=== PATIENT | female | born 1970 | race Caucasian/White ===

== ENCOUNTER 2016-08-10 12:09 | Emergency (ER) | payer OTHER ==
[~2016-08-10] VITALS: Ht 147.3 cm; Wt 73.0 kg
[~2016-08-10 12:09] MED LIST: IBUP-1050 PO
[2016-08-10 12:18] VITALS: Ht 147.3 cm; Wt 73.0 kg
[2016-08-10] MEDS ORDERED: ALBUAER INH (12:57)
[2016-08-10] MEDS ORDERED: ONDANSETRON INJ 2 MG/ML 2 ML VIAL IV STA (13:31)
[2016-08-10] MEDS ORDERED: KETOROLAC TROMETHAMINE 30 MG/ML VIAL IV STA (13:31)
[2016-08-10] MEDS ORDERED: SODIUM CHLORIDE 0.9% 1000ML 1,000 ML IV ONE (13:45)
[2016-08-10] MEDS ORDERED: DEXAMETHASONE SOD INJ 10 MG/ML VIAL IV ONE (13:45)
[2016-08-10 14:02] LABS: URINE APPEARANCE CLEAR (CLEAR); URINE BILIRUBIN NEG (NEG); URINE COLOR YELLOW; URINE NITRITE NEG (NEG); URINE PH 8.5 (4.5-7.5); URINE SPECIFIC GRAVITY 1.005 (1.000-1.030); UROBILINOGEN NEG (NEG); ZZUR CULT IF INDIC CLEAN CATCH NO
--- NOTE | 2016-08-10 14:06 | DIAGNOSTIC IMAGING REPORT ---
CT SCAN OF THE BRAIN WITHOUT IV CONTRAST CLINICAL HISTORY: Headache. COMPARISON STUDY: No priors. TECHNIQUE: Unenhanced axial CT scan of the brain is performed from the vertex to the skull base. Automated dose control exposure was utilized. CT DOSE: 537.48 mGy.cm FINDINGS: Brain parenchyma: The brain parenchyma is normal in appearance. There is no hemorrhage, mass effect, or evidence of acute territorial ischemia by CT criteria. Jane-white matter is preserved. No extra-axial fluid collection is seen. Ventricles, sulci, cisterns: Normal in configuration. Intracranial vasculature: The visualized intracranial vasculature at the skull base is normal in appearance. Calvarium: Unremarkable. Soft tissues: A small sebaceous cyst is noted in the occipital scalp. Sinuses and mastoids: The visualized paranasal sinuses are clear. The mastoid air cells are well pneumatized. Orbits: The bony orbits are grossly intact. Findings suggest previous left ocular lens surgery. IMPRESSION: No acute intracranial abnormality. Electronically signed by: Rudi Burrell M.D. 08/10/2016 2:04 PM Dictated Date/Time: 08/10/2016 2:02 PM
[2016-08-10 14:21] LABS: MANUAL MICROSCOPIC REQUIRED? NO; REVIEW REQ? NO
[2016-08-10 14:31] LABS: BASO % 0.6 %; BASO ABS # 0.03 K/uL (0-0.2); COMPLETE YES; EOS % 3.3 %; HEMATOCRIT 40.4 % (37-47); LYMPH % 33.3 %; LYMPH ABS # 1.71 K/uL (1.2-3.4); MEAN CELL VOLUME 95.7 fL (80-100); MEAN CORPUSCULAR HEMOGLOBIN 33.6 pg (25-34); MEAN CORPUSCULAR HGB CONC 35.1 g/dl (32-36); MEAN PLATELET VOLUME 11.2 fL (7.4-10.4); MONO % 4.3 %; NEUT % 58.5 %; PLATELET COUNT 154 K/uL (130-400); RED BLOOD COUNT 4.22 M/uL (4.2-5.4); WHITE BLOOD COUNT 5.13 K/uL (4.8-10.8)
[2016-08-10 14:54] LABS: BUN/CREATININE RATIO 7.8 (10-20); CALCIUM 9.2 mg/dl (8.5-10.1); CREATININE 0.71 mg/dl (0.60-1.20); POTASSIUM 4.1 mmol/L (3.5-5.1)
[2016-08-10 15:04] LABS: THYROID STIMULATING HORMONE 0.196 uIu/ml (0.300-4.500)
[2016-08-10] MEDS ORDERED: ULT/50 PO (15:19)
[2016-08-10 15:54] VITALS: BP 157/96; PULSE 86; TEMP 36.9; O2SAT 95
--- NOTE | 2016-08-10 22:30 | EMERGENCY ROOM VISIT NOTE ---
History First contact with patient: 13:11 Chief Complaint: HEADACHE Stated Complaint: HEADACHE History of Present Illness The patient is a 46 year old female who presents to the Emergency Room with complaints of headache symptoms slowly worsening over the past 4 days. The patient does have a history of fibromyalgia, but does not have a history of migraine headaches. She has not had fever or chills. She states her pain is essentially in the front of her head and up over the top of the head. She is nauseated without vomiting. This is not the worst headache of her life. No recent URI symptoms or fever. She took Tylenol at home without improvement of symptoms. She rates her discomfort an 8/10. Review of Systems More than 10 systems were reviewed and otherwise negative with the exception of history of present illness. Past Medical/Surgical History Medical Problems: (1) Abdominal pain (2) Acute exacerbation of chronic low back pain (3) Asthma, Unspecified (4) Back pain (5) Back pain (6) Back pain (7) Back strain (8) Back strain (9) Chronic Obstructive Pulmonary Disease, Unspecified (10) Fibromyalgia (11) Fibromyalgia (12) Fracture of metatarsal bone (13) Generalized pain (14) Lumbago (15) Lupus anticoagulant disorder (16) Musculoskeletal chest pain (17) Nodule of chest wall (18) Splenomegaly (19) Swelling of both lower extremities (20) Thoracic back pain (21) Upper abdominal pain Family History Hypertension Stroke Social History Smoking Status: Current Every Day Smoker Alcohol Use: occasionally Housing Status: other Occupation Status: employed Current/Historical Medications Scheduled Acetaminophen (Tylenol), 1,000 MG PO Q6 Albuterol Sulfate (Proventil Hfa), 2 PUFF INH DAILY Tramadol Hcl (Ultram), 50 MG PO Q8H Trazodone Hcl (Trazodone), 50 MG PO HS Allergies Coded Allergies: Diphenhydramine (Verified Allergy, Unknown, JITTERY, 08/10/16) Milnacipran (Verified Allergy, Unknown, VOMITS, 08/10/16) Physical Exam Vital Signs Date Time Temp Pulse Resp B/P Pulse Ox O2 Delivery O2 Flow Rate FiO2 08/10/16 15:54 36.9 86 18 157/96 95 08/10/16 14:39 86 18 157/96 08/10/16 12:18 36.9 92 17 156/105 95 Room Air Pain Rating (0-10): 0 Physical Exam VITALS: Vitals are noted on the nurse's note and reviewed by myself. Vital signs stable. GENERAL: Well-developed, well-nourished, white female, who is in no acute distress and resting comfortably. Patient is cooperative with the examination. HEAD: Normocephalic atraumatic. EARS: External ear normal. External auditory canals clear, tympanic membranes pearly jane without erythema or effusion bilaterally. EYES: Pupils equal round and reactive to light and accommodation. Conjunctivae without injection, sclerae without icterus. Extraocular movements intact. NOSE: Patent, turbinates without inflammation or discharge. MOUTH: Mucous membranes moist. Tonsils are not enlarged. Pharynx without erythema, blood, or exudate. Uvula midline. Airway patent. NECK: Supple without nuchal rigidity. No lymphadenopathy. No thyromegaly. Cervical spine is nontender. HEART: Regular rate and rhythm without murmurs gallops or rubs. LUNGS: Clear to auscultation bilaterally without wheezes, rales or rhonchi. No retractions or accessory muscle use. Medical Decision & Procedures ER Provider Diagnostic Interpretation: CT SCAN OF THE BRAIN WITHOUT IV CONTRAST CLINICAL HISTORY: Headache. COMPARISON STUDY: No priors. TECHNIQUE: Unenhanced axial CT scan of the brain is performed from the vertex to the skull base. Automated dose control exposure was utilized. CT DOSE: 537.48 mGy.cm FINDINGS: Brain parenchyma: The brain parenchyma is normal in appearance. There is no hemorrhage, mass effect, or evidence of acute territorial ischemia by CT criteria. Jane-white matter is preserved. No extra-axial fluid collection is seen. Ventricles, sulci, cisterns: Normal in configuration. Intracranial vasculature: The visualized intracranial vasculature at the skull base is normal in appearance. Calvarium: Unremarkable. Soft tissues: A small sebaceous cyst is noted in the occipital scalp. Sinuses and mastoids: The visualized paranasal sinuses are clear. The mastoid air cells are well pneumatized. Orbits: The bony orbits are grossly intact. Findings suggest previous left ocular lens surgery. IMPRESSION: No acute intracranial abnormality. Laboratory Results 08/10/16 14:20 Red Blood Count 4.22, Mean Corpuscular Volume 95.7, Mean Corpuscular Hemoglobin 33.6, Mean Corpuscular Hemoglobin Concent 35.1, Mean Platelet Volume 11.2, Neutrophils (%) (Auto) 58.5, Lymphocytes (%) (Auto) 33.3, Monocytes (%) (Auto) 4.3, Eosinophils (%) (Auto) 3.3, Basophils (%) (Auto) 0.6, Neutrophils # (Auto) 3.00, Lymphocytes # (Auto) 1.71, Monocytes # (Auto) 0.22, Eosinophils # (Auto) 0.17, Basophils # (Auto) 0.03 08/10/16 14:20 Test 08/10/16 13:50 08/10/16 14:20 Urine Color YELLOW Urine Appearance CLEAR (CLEAR) Urine pH 8.5 (4.5-7.5) Urine Specific [place] 1.005 (1.000-1.030) Urine Protein NEG (NEG) Urine Glucose (UA) NEG (NEG) Urine Ketones NEG (NEG) Urine Occult Blood NEG (NEG) Urine Nitrite NEG (NEG) Urine Bilirubin NEG (NEG) Urine Urobilinogen NEG (NEG) Urine Leukocyte Esterase NEG (NEG) White Blood Count 5.13 K/uL (4.8-10.8) Red Blood Count 4.22 M/uL (4.2-5.4) Hemoglobin 14.2 g/dL (12.0-16.0) Hematocrit 40.4 % (37-47) Mean Corpuscular Volume 95.7 fL (80-100) Mean Corpuscular Hemoglobin 33.6 pg (25-34) Mean Corpuscular Hemoglobin Concent 35.1 g/dl (32-36) Platelet Count 154 K/uL (130-400) Mean Platelet Volume 11.2 fL (7.4-10.4) Neutrophils (%) (Auto) 58.5 % Lymphocytes (%) (Auto) 33.3 % Monocytes (%) (Auto) 4.3 % Eosinophils (%) (Auto) 3.3 % Basophils (%) (Auto) 0.6 % Neutrophils # (Auto) 3.00 K/uL (1.4-6.5) Lymphocytes # (Auto) 1.71 K/uL (1.2-3.4) Monocytes # (Auto) 0.22 K/uL (0.11-0.59) Eosinophils # (Auto) 0.17 K/uL (0-0.5) Basophils # (Auto) 0.03 K/uL (0-0.2) RDW Standard Deviation 45.0 fL (36.4-46.3) RDW Coefficient of Variation 13.0 % (11.5-14.5) Immature Granulocyte % (Auto) 0.0 % Immature Granulocyte # (Auto) 0.00 K/uL (0.00-0.02) Anion Gap 8.0 mmol/L (3-11) Est Creatinine Clear Calc Drug Dose 83.1 ml/min Estimated GFR () 117.6 Estimated GFR (Non- 101.4 BUN/Creatinine Ratio 7.8 (10-20) Calcium Level 9.2 mg/dl (8.5-10.1) Total Bilirubin 0.2 mg/dl (0.2-1) Aspartate Amino Transf (AST/SGOT) 10 U/L (15-37) Alanine Aminotransferase (ALT/SGPT) 27 U/L (12-78) Alkaline Phosphatase 81 U/L (45-117) Total Protein 7.2 gm/dl (6.4-8.2) Albumin 3.6 gm/dl (3.4-5.0) Globulin 3.6 gm/dl (2.5-4.0) Albumin/Globulin Ratio 1.0 (0.9-2) Thyroid Stimulating Hormone (TSH) 0.196 uIu/ml (0.300-4.500) Medications Administered Medications (Trade) Dose Ordered Sig/Lindsay Route Start Time Stop Time Status Last Admin Dose Admin Sodium Chloride (Nss 1000ml) 1,000 ml @ 999 mls/hr Q1H1M ONCE IV 08/10/16 13:45 08/10/16 14:45 DC 08/10/16 14:27 999 MLS/HR Ondansetron HCl (Zofran Inj) 4 mg NOW STAT IV 08/10/16 13:31 08/10/16 13:32 DC 08/10/16 14:28 4 MG Ketorolac Tromethamine (Toradol Inj) 30 mg NOW STAT IV 08/10/16 13:31 08/10/16 13:32 DC 08/10/16 14:27 30 MG Dexamethasone Sodium Phosphate (Decadron Inj) 10 mg NOW ONCE IV 08/10/16 13:45 08/10/16 13:46 DC 08/10/16 14:27 10 MG ED Course Physical exam and history were performed. Nursing notes and EMR were reviewed. Patient appears to have headache symptoms slowly worsening over the past 4 days. She certainly does not appear with signs of meningitis or encephalitis. Despite having intermittent headaches throughout her lifetime, the patient has not had previous imaging. IV access was established and labs were obtained. The patient was hydrated with normal saline and given IV Toradol, IV Decadron, and IV Zofran. I did elect to perform a CT scan of her head, and this was ordered. The patient was reevaluated multiple times throughout the course of her stay. She had essentially complete resolution of her symptoms after the above medication. Her blood work does not show a significantly elevated white blood cell count, anemia, bandemia, or gross electrolyte imbalance. TSH is within expected limits. The CT scan does not show signs of acute bleed or other findings to explain the patient's symptoms. Overall the patient appears stable for discharge home. She should follow with her primary care physician for further management. I will provide her a short course of tramadol to assist with breakthrough symptoms at home. She was otherwise invited back to the ER anytime with new, worsening, or concerning symptoms. She was discharged home under the care of family member who is acting as the haul truck driver. The chart was completed utilizing [employer] Speech Voice Recognition Software. Grammatical errors, random word insertions, pronoun errors, and incomplete sentences are an occasional consequence of this system due to software limitations, ambient noise, and hardware issues. Any formal questions or concerns about the content, text, or information contained within the body of this dictation should be directly addressed to the provider for clarification. . Medical Decision The differential diagnosis includes, but is not limited to: acute intracranial bleed, meningitis, encephalitis, mass or mass effect, sinusitis, infection, tumor, headache, temporal arteritis and carbon monoxide exposure, and migraine. BILL Drug Monitoring Program Search Results: patient reviewed within database, no issues identified Impression Primary Impression: Headache Departure Information Dispostion Home / Self-Care Condition GOOD Prescriptions Tramadol Hcl (ULTRAM) 50 Mg Tab 50 MG PO Q8H for 3 Days, #9 TAB Prov: Arnie Murray PA-C 08/10/16 Referrals No Doctor, Assigned (PCP) Forms HOME CARE DOCUMENTATION FORM, IMPORTANT VISIT INFORMATION Patient Instructions My [facility] Additional Instructions You were seen and evaluated today on an emergency basis only. This is not a substitute for, or an effort to provide, complete comprehensive medical care. It is not possible to recognize and treat all injuries or illnesses in a single emergency department visit. For this reason it is recommended that you followup with your primary care physician tomorrow for ongoing care and evaluation. DO NOT drive, drink alcohol, operate machinery, or perform dangerous activities today. You were given medications in the ER that can affect your ability to safely function or operate a vehicle. Rest today in a quiet, peaceful, dark environment and get a full 8-10 hrs of sleep tonight. Avoid loud noises, smoke/smoking, alcohol, bright lights, stress, or physical exertion today to minimize the chance the headache may return. Continue current medications. Ibuprofen(Motrin, Advil) may be used for fever or pain. Use 600mg every six hours as needed. Take with food. Avoid using more than 2400mg in a 24 hour period. Do not use 2400mg per day for more than three consecutive days without physician direction. Prolonged inappropriate use can lead to stomach upset or ulcers. (AND/OR) Acetaminophen(Tylenol) may be used for fever or pain. Use 1000mg every six hours as needed. Avoid using more than 4000mg in a 24 hour period. Take tramadol 50 mg every 8 hours as needed for breakthrough pain. Do not drink or drive while taking this medication. Return to the ER for passing out, worsening headache, vision problems, neck stiffness/pain, fevers, vomiting, worsening of your condition, or as needed.
[2016-12-27] MEDS ORDERED: CYCL10TA6 PO (09:29)
[2016-12-27] MEDS ORDERED: ACET-1256 PO (12:56)
[2016-12-27] MEDS ORDERED: HYDR200T5 PO (17:34)
[2016-12-27] MEDS ORDERED: IBUP-1050 PO (20:18)
== END 2016-08-10 15:56 | disposition home or self-care (01) ==
LOC: C.EDB 12:10 → C.EDC 15:56
DX: R51 Headache (principal); J44.9 Chronic obstructive pulmonary disease, unspecified; J45.909 Unspecified asthma, uncomplicated; M79.7 Fibromyalgia; D68.62 Lupus anticoagulant syndrome; F17.200 Nicotine dependence, unspecified, uncomplicated; Z87.81 Personal history of (healed) traumatic fracture; Z88.8 Allergy status to other drugs, medicaments and biological substances; Z82.49 Family history of ischemic heart disease and other diseases of the circulatory system; Z82.3 Family history of stroke

== ENCOUNTER 2016-08-24 16:49 | Emergency (ER) | payer OTHER ==
[~2016-08-24] VITALS: Ht 147.3 cm; Wt 73.3 kg
[~2016-08-24 16:49] MED LIST changes: +ALBUAER INH; -IBUP-1050 PO
[2016-08-24 16:59] VITALS: TEMP 36.8; Ht 147.3 cm; Wt 73.3 kg
[2016-08-24] MEDS ORDERED: SODIUM CHLORIDE 0.9% 1000ML 1,000 ML IV STA (17:22)
[2016-08-24] MEDS ORDERED: ONDANSETRON INJ 2 MG/ML 2 ML VIAL IV STA (17:22)
[2016-08-24] MEDS ORDERED: ACETAMINOPHEN 500 MG TAB PO STA (17:22)
--- NOTE | 2016-08-24 17:25 | EMERGENCY ROOM VISIT NOTE ---
History Report prepared by Angel: Carlos Killian Under the Supervision of: Dr. Nestor Oneil M.D. First contact with patient: 17:11 Chief Complaint: BACK PAIN Stated Complaint: UPPER BACK PAIN; UPPER LEFT ABDOMINAL PAIN History of Present Illness The patient is a 46 year old female who presents to the Emergency Room with complaints of persistent back pain that started earlier this afternoon. She associates the pain with nausea. She also notes abdominal pain, but she says that this is chronic. The patient has chronic stomach problems, and she has a history of a hernia repair. She states that she has no history of heart problems. The patient says her blood pressure is chronically high. Source of History: patient Onset: Earlier this afternoon Position: back Timing: other (persistent) Associated Symptoms: + nausea Note: Associated symptoms: No other associated symptoms noted. She does note chronic abdominal pain. Review of Systems See HPI for pertinent positives & negatives. A total of 10 systems reviewed and were otherwise negative. Past Medical & Surgical Medical Problems: (1) Abdominal pain (2) Acute exacerbation of chronic low back pain (3) Asthma, Unspecified (4) Back pain (5) Back pain (6) Back pain (7) Back strain (8) Back strain (9) Chronic Obstructive Pulmonary Disease, Unspecified (10) Fibromyalgia (11) Fibromyalgia (12) Fracture of metatarsal bone (13) Generalized pain (14) Lumbago (15) Lupus anticoagulant disorder (16) Musculoskeletal chest pain (17) Nodule of chest wall (18) Splenomegaly (19) Swelling of both lower extremities (20) Thoracic back pain (21) Upper abdominal pain Family History Hypertension Stroke Social History Smoking Status: Current Every Day Smoker Alcohol Use: occasionally Housing Status: other Occupation Status: employed Current/Historical Medications Scheduled Acetaminophen (Tylenol), 1,000 MG PO Q6 Albuterol Sulfate (Proventil Hfa), 2 PUFF INH DAILY Doxycycline Monohydrate (Monodox), 100 MG PO BID Hydroxychloroquine Sulfate (Plaquenil), 200 MG PO DAILY Trazodone Hcl (Trazodone), 100 MG PO HS Allergies Coded Allergies: Diphenhydramine (Verified Allergy, Unknown, JITTERY, 08/24/16) Milnacipran (Verified Allergy, Unknown, VOMITS, 08/24/16) Physical Exam Vital Signs Date Time Temp Pulse Resp B/P Pulse Ox O2 Delivery O2 Flow Rate FiO2 08/24/16 19:41 84 20 123/84 96 Room Air 08/24/16 19:11 87 20 154/93 96 Room Air 08/24/16 18:03 79 18 153/118 94 Room Air 08/24/16 18:02 85 08/24/16 16:59 36.8 76 18 173/102 96 Room Air Physical Exam CONSTITUTIONAL: Mild painful distress. HEENT: No icterus, moist mucous membranes NECK: No meningismus, trachea is midline. CARDIOVASCULAR: Regular rate, normal perfusion RESPIRATORY: Unlabored breathing. Clear to auscultation. GASTROINTESTINAL: Mild epigastric tenderness. GENITOURINARY: No flank tenderness MUSCULOSKELETAL: Full range of motion NEUROLOGIC: No acute gross focal deficits. PSYCHIATRIC: Normal affect SKIN: Normal for ethnicity. Medical Decision & Procedures ER Provider Diagnostic Interpretation: X-ray results as stated below per my interpretation and radiologist interpretation. Other radiology results as stated below per my review and radiologist interpretation. BILIARY ULTRASOUND CLINICAL HISTORY: epigastric pain COMPARISON STUDY: 05/05/2016 FINDINGS: The pancreas is nonvisualized. The liver is of increased echogenicity consistent with hepatic steatosis. There is mild hepatomegaly (21 cm). There is an area of presumed focal fatty sparing adjacent to gallbladder measuring 22 mm in diameter. The gallbladder appears sonographically normal. No stones are identified. There is no gallbladder wall thickening. There is no ductal dilatation. The common mild duct measures 4 mm. There is no right-sided hydronephrosis. IMPRESSION: 1. Increased hepatic echogenicity, consistent with hepatic steatosis. Presumed areas of focal fatty sparing adjacent to gallbladder 2. Ultrasonographically normal gallbladder. No evidence of ductal dilatation 3. Nonvisualization of the pancreas Electronically signed by: Cluadio Quijano M.D. 08/24/2016 6:47 PM Dictated Date/Time: 08/24/2016 6:45 PM CHEST ONE VIEW PORTABLE CLINICAL HISTORY: Chest pain radiating to the back. COMPARISON STUDY: 05/05/2016 FINDINGS: The cardiac and mediastinal contours are normal. There is no evidence of focal pulmonary consolidation. There is no evidence of failure. No pleural effusions are visualized.[ IMPRESSION: No active disease in the chest. Electronically signed by: Claudio Quijano M.D. 08/24/2016 5:52 PM Dictated Date/Time: 08/24/2016 5:[address] OF THE CHEST WITH IV CONTRAST CLINICAL HISTORY: Chest pain rating to the back. COMPARISON STUDY: 05/05/2016 TECHNIQUE: Following the IV administration of 93 mL of Optiray-320, CT of the thorax was performed from the thoracic inlet to the lung bases. Images are reviewed in the axial, sagittal, and coronal planes. IV contrast was administered without complication. CT DOSE: 293.61 mGy.cm FINDINGS: Thyroid: There is a multinodular thyroid gland with the largest nodule measuring 15 mm. Thoracic aorta: The thoracic aorta is normal in course and caliber, noting standard 3-vessel arch anatomy. No aneurysm or dissection is seen. Pulmonary vasculature: The pulmonary trunk is normal in caliber. There are no central filling defects identified to suggest pulmonary embolus. Note that this examination was not protocoled for the evaluation of pulmonary emboli. HEART: The heart is normal in size and configuration, without pericardial effusion. Lungs and pleural spaces: There are no pleural effusions. There is no focal pulmonary consolidation. There is a stable 4 mm right lower lobe pulmonary nodule. There is a stable 2 mm right upper lobe pulmonary nodule. There is a stable 3 mm subpleural left lower lobe pulmonary nodule. Mediastinum: There are enlarged right paratracheal lymph nodes, unchanged from the preceding study. Danika: There is no evidence of pathologic hilar adenopathy Axilla: There is no evidence of pathologic axillary lymphadenopathy Upper abdomen: There is hepatic steatosis Skeletal structures: There are no lytic or blastic osseous lesions. IMPRESSION: 1. No evidence of focal pulmonary consolidation 2. No evidence of thoracic aortic aneurysm or dissection 3. Stable 4 mm right lower lobe pulmonary nodule 4. Stable posterior mediastinal mildly enlarged para-aortic lymph nodes 5. Multinodular thyroid gland Electronically signed by: Claudio Quijano M.D. 08/24/2016 7:18 PM Dictated Date/Time: 08/24/2016 7:10 PM Laboratory Results 08/24/16 18:08 Red Blood Count 4.43, Mean Corpuscular Volume 96.6, Mean Corpuscular Hemoglobin 33.4, Mean Corpuscular Hemoglobin Concent 34.6, Mean Platelet Volume 11.5, Neutrophils (%) (Auto) 58.6, Lymphocytes (%) (Auto) 33.5, Monocytes (%) (Auto) 4.7, Eosinophils (%) (Auto) 2.6, Basophils (%) (Auto) 0.3, Neutrophils # (Auto) 4.54, Lymphocytes # (Auto) 2.59, Monocytes # (Auto) 0.36, Eosinophils # (Auto) 0.20, Basophils # (Auto) 0.02 08/24/16 18:08 Test 08/24/16 18:00 08/24/16 18:08 Urine Color YELLOW Urine Appearance CLEAR (CLEAR) Urine pH 5.0 (4.5-7.5) Urine Specific [place] 1.004 (1.000-1.030) Urine Protein NEG (NEG) Urine Glucose (UA) NEG (NEG) Urine Ketones NEG (NEG) Urine Occult Blood NEG (NEG) Urine Nitrite NEG (NEG) Urine Bilirubin NEG (NEG) Urine Urobilinogen NEG (NEG) Urine Leukocyte Esterase NEG (NEG) White Blood Count 7.73 K/uL (4.8-10.8) Red Blood Count 4.43 M/uL (4.2-5.4) Hemoglobin 14.8 g/dL (12.0-16.0) Hematocrit 42.8 % (37-47) Mean Corpuscular Volume 96.6 fL (80-100) Mean Corpuscular Hemoglobin 33.4 pg (25-34) Mean Corpuscular Hemoglobin Concent 34.6 g/dl (32-36) Platelet Count 146 K/uL (130-400) Mean Platelet Volume 11.5 fL (7.4-10.4) Neutrophils (%) (Auto) 58.6 % Lymphocytes (%) (Auto) 33.5 % Monocytes (%) (Auto) 4.7 % Eosinophils (%) (Auto) 2.6 % Basophils (%) (Auto) 0.3 % Neutrophils # (Auto) 4.54 K/uL (1.4-6.5) Lymphocytes # (Auto) 2.59 K/uL (1.2-3.4) Monocytes # (Auto) 0.36 K/uL (0.11-0.59) Eosinophils # (Auto) 0.20 K/uL (0-0.5) Basophils # (Auto) 0.02 K/uL (0-0.2) RDW Standard Deviation 45.5 fL (36.4-46.3) RDW Coefficient of Variation 13.1 % (11.5-14.5) Immature Granulocyte % (Auto) 0.3 % Immature Granulocyte # (Auto) 0.02 K/uL (0.00-0.02) Anion Gap 9.0 mmol/L (3-11) Est Creatinine Clear Calc Drug Dose 67.2 ml/min Estimated GFR () 90.7 Estimated GFR (Non- 78.2 BUN/Creatinine Ratio 15.9 (10-20) Calcium Level 9.8 mg/dl (8.5-10.1) Total Bilirubin 0.2 mg/dl (0.2-1) Direct Bilirubin < 0.1 mg/dl (0-0.2) Aspartate Amino Transf (AST/SGOT) 10 U/L (15-37) Alanine Aminotransferase (ALT/SGPT) 24 U/L (12-78) Alkaline Phosphatase 74 U/L (45-117) Troponin I < 0.015 ng/ml (0-0.045) Total Protein 7.0 gm/dl (6.4-8.2) Albumin 3.5 gm/dl (3.4-5.0) Globulin 3.5 gm/dl (2.5-4.0) Albumin/Globulin Ratio 1.0 (0.9-2) Lipase 303 U/L (73-393) Labs reviewed by ED physician. Medications Administered Medications (Trade) Dose Ordered Sig/Lindsay Route Start Time Stop Time Status Last Admin Dose Admin Sodium Chloride (Nss 1000ml) 1,000 ml @ 0 mls/hr Q0M STAT IV 08/24/16 17:22 08/24/16 17:26 DC 08/24/16 18:03 0 MLS/HR Morphine Sulfate (MoRPHine SULFATE INJ) 4 mg ONE PRN IV 08/24/16 17:30 09/07/16 17:29 08/24/16 19:18 4 MG Ondansetron HCl (Zofran Inj) 4 mg NOW STAT IV 08/24/16 17:22 08/24/16 17:26 DC 08/24/16 18:00 4 MG ECG Indication: other (back pain) Rate (beats per minute): 80 Rhythm: normal sinus Findings: other (normal axis, nonspecific-ST findings) ED Course 171: Past medical records reviewed. The patient was evaluated in room B11B. A complete history and physical examination was performed. 1722: Ordered Zofran Inj 4 mg IV, NSS 1000 ml @ 0 mls/hr Wide Open IV, Tylenol Tab 1000 mg PO. 0: Ordered Morphine Sulfate Inj 4 mg IV PRN. 0: I reevaluated the patient and she is resting comfortably. The patient verbally expressed understanding and agreement of the treatment plan. The patient will be discharged. Medical Decision Differential diagnoses include: pancreatitis, gall stones, acute coronary syndrome, dissection, GERD. 46-year-old presents to the emergency Department 1 day of constant mild to moderate pain located in between her chest and back. There is no clear ameliorating or exacerbating factors no associated symptoms as nausea, diaphoresis or shortness of breath. She may have some epigastric discomfort on exam. Thorough emergency department evaluation including CAT scan, EKG, right upper quadrant ultrasound and labs were all unremarkable. Patient appeared in no acute distress prior to discharge 7:45 PM. She does take Tylenol and Motrin every 6 hours as needed for pain and follow-up with her doctor to return for any worsening or worrisome symptoms Impression Primary Impression: Back pain Scribe Attestation The scribe's documentation has been prepared under my direction and personally reviewed by me in its entirety. I confirm that the note above accurately reflects all work, treatment, procedures, and medical decision making performed by me. Departure Information Dispostion Home / Self-Care Referrals No Doctor, Assigned (PCP) Alva Burns D.O. Forms HOME CARE DOCUMENTATION FORM, IMPORTANT VISIT INFORMATION Patient Instructions Back Pain - [facility], Chest Pain - [facility], My [facility]
[2016-08-24] MEDS ORDERED: OPTIRAY 320 IV PRN (17:30)
[2016-08-24] MEDS ORDERED: DOXY100C76 PO (17:34)
--- NOTE | 2016-08-24 17:54 | DIAGNOSTIC IMAGING REPORT ---
CHEST ONE VIEW PORTABLE CLINICAL HISTORY: Chest pain radiating to the back. COMPARISON STUDY: 05/05/2016 FINDINGS: The cardiac and mediastinal contours are normal. There is no evidence of focal pulmonary consolidation. There is no evidence of failure. No pleural effusions are visualized.[ IMPRESSION: No active disease in the chest. Electronically signed by: Claudio Quijano M.D. 08/24/2016 5:52 PM Dictated Date/Time: 08/24/2016 5:52 PM
[2016-08-24] MEDS: MoRPHine SULFATE 4 MG/ML 1 ML CARP\\VIAL IV PRN ×2 (18:00→19:18)
[2016-08-24 18:18] LABS: BASO % 0.3 %; BASO ABS # 0.02 K/uL (0-0.2); COMPLETE YES; EOS % 2.6 %; HEMATOCRIT 42.8 % (37-47); IG% 0.3 %; LYMPH % 33.5 %; LYMPH ABS # 2.59 K/uL (1.2-3.4); MEAN CELL VOLUME 96.6 fL (80-100); MEAN CORPUSCULAR HEMOGLOBIN 33.4 pg (25-34); MEAN CORPUSCULAR HGB CONC 34.6 g/dl (32-36); MEAN PLATELET VOLUME 11.5 fL (7.4-10.4); MONO % 4.7 %; NEUT % 58.6 %; PLATELET COUNT 146 K/uL (130-400); RED BLOOD COUNT 4.43 M/uL (4.2-5.4); WHITE BLOOD COUNT 7.73 K/uL (4.8-10.8)
[2016-08-24 18:20] LABS: URINE APPEARANCE CLEAR (CLEAR); URINE BILIRUBIN NEG (NEG); URINE COLOR YELLOW; URINE NITRITE NEG (NEG); URINE SPECIFIC GRAVITY 1.004 (1.000-1.030); UROBILINOGEN NEG (NEG); ZZUR CULT IF INDIC CLEAN CATCH NO
[2016-08-24 18:29] LABS: MANUAL MICROSCOPIC REQUIRED? NO; REVIEW REQ? NO
[2016-08-24 18:39] LABS: ALT/SGPT 24 U/L (12-78); BLOOD UREA NITROGEN 14 mg/dl (7-18); BUN/CREATININE RATIO 15.9 (10-20); CALCIUM 9.8 mg/dl (8.5-10.1); CARBON DIOXIDE 28 mmol/L (21-32); CHLORIDE 104 mmol/L (98-107); CREATININE 0.88 mg/dl (0.60-1.20); GLUCOSE 89 mg/dl (70-99); POTASSIUM 3.9 mmol/L (3.5-5.1); SODIUM 141 mmol/L (136-145)
[2016-08-24 18:44] LABS: ALKALINE PHOSPHATASE 74 U/L (45-117); AST/SGOT 10 U/L (15-37)
--- NOTE | 2016-08-24 18:48 | DIAGNOSTIC IMAGING REPORT ---
BILIARY ULTRASOUND CLINICAL HISTORY: epigastric pain COMPARISON STUDY: 05/05/2016 FINDINGS: The pancreas is nonvisualized. The liver is of increased echogenicity consistent with hepatic steatosis. There is mild hepatomegaly (21 cm). There is an area of presumed focal fatty sparing adjacent to gallbladder measuring 22 mm in diameter. The gallbladder appears sonographically normal. No stones are identified. There is no gallbladder wall thickening. There is no ductal dilatation. The common mild duct measures 4 mm. There is no right-sided hydronephrosis. IMPRESSION: 1. Increased hepatic echogenicity, consistent with hepatic steatosis. Presumed areas of focal fatty sparing adjacent to gallbladder 2. Ultrasonographically normal gallbladder. No evidence of ductal dilatation 3. Nonvisualization of the pancreas Electronically signed by: Claudio Quijano M.D. 08/24/2016 6:47 PM Dictated Date/Time: 08/24/2016 6:45 PM
--- NOTE | 2016-08-24 19:19 | DIAGNOSTIC IMAGING REPORT ---
CT OF THE CHEST WITH IV CONTRAST CLINICAL HISTORY: Chest pain rating to the back. COMPARISON STUDY: 05/05/2016 TECHNIQUE: Following the IV administration of 93 mL of Optiray-320, CT of the thorax was performed from the thoracic inlet to the lung bases. Images are reviewed in the axial, sagittal, and coronal planes. IV contrast was administered without complication. CT DOSE: 293.61 mGy.cm FINDINGS: Thyroid: There is a multinodular thyroid gland with the largest nodule measuring 15 mm. Thoracic aorta: The thoracic aorta is normal in course and caliber, noting standard 3-vessel arch anatomy. No aneurysm or dissection is seen. Pulmonary vasculature: The pulmonary trunk is normal in caliber. There are no central filling defects identified to suggest pulmonary embolus. Note that this examination was not protocoled for the evaluation of pulmonary emboli. HEART: The heart is normal in size and configuration, without pericardial effusion. Lungs and pleural spaces: There are no pleural effusions. There is no focal pulmonary consolidation. There is a stable 4 mm right lower lobe pulmonary nodule. There is a stable 2 mm right upper lobe pulmonary nodule. There is a stable 3 mm subpleural left lower lobe pulmonary nodule. Mediastinum: There are enlarged right paratracheal lymph nodes, unchanged from the preceding study. Danika: There is no evidence of pathologic hilar adenopathy Axilla: There is no evidence of pathologic axillary lymphadenopathy Upper abdomen: There is hepatic steatosis Skeletal structures: There are no lytic or blastic osseous lesions. IMPRESSION: 1. No evidence of focal pulmonary consolidation 2. No evidence of thoracic aortic aneurysm or dissection 3. Stable 4 mm right lower lobe pulmonary nodule 4. Stable posterior mediastinal mildly enlarged para-aortic lymph nodes 5. Multinodular thyroid gland Electronically signed by: Claudio Quijano M.D. 08/24/2016 7:18 PM Dictated Date/Time: 08/24/2016 7:10 PM
[2016-08-24 19:41] VITALS: BP 123/84; PULSE 84; O2SAT 96
[2016-12-27] MEDS ORDERED: CYCL10TA6 PO (09:29)
[2016-12-27] MEDS ORDERED: ACET-1256 PO (12:56)
[2016-12-27] MEDS ORDERED: HYDR200T5 PO (17:34)
[2016-12-27] MEDS ORDERED: IBUP-1050 PO (20:18)
== END 2016-08-24 19:47 | disposition home or self-care (01) ==
LOC: C.EDB 16:51
DX: M54.9 Dorsalgia, unspecified (principal); J44.9 Chronic obstructive pulmonary disease, unspecified; J45.909 Unspecified asthma, uncomplicated; M79.7 Fibromyalgia; D68.62 Lupus anticoagulant syndrome; F17.200 Nicotine dependence, unspecified, uncomplicated; Z82.49 Family history of ischemic heart disease and other diseases of the circulatory system; Z82.3 Family history of stroke

== ENCOUNTER 2016-10-14 09:01 | Emergency (ER) | payer OTHER ==
[~2016-10-14] VITALS: Ht 147.3 cm; Wt 73.3 kg
[~2016-10-14 09:01] MED LIST changes: +DOXY100C76 PO
[2016-10-14 09:05] VITALS: TEMP 36.9; Ht 147.3 cm; Wt 73.3 kg
[2016-10-14] MEDS ORDERED: ALBINSX INH (09:29)
[2016-10-14] MEDS ORDERED: SODIUM CHLORIDE 0.9% 1000ML 1,000 ML IV STA (09:38)
[2016-10-14] MEDS ORDERED: PRED-301 PO (09:40)
[2016-10-14 10:06] LABS: COMPLETE YES; HEMATOCRIT 40.5 % (37-47); IG% 0.5 %; MEAN CORPUSCULAR HGB CONC 34.1 g/dl (32-36); MEAN PLATELET VOLUME 11.1 fL (7.4-10.4); MONO % 3.9 %; NEUT % 83.6 %; PLATELET COUNT 167 K/uL (130-400); RED BLOOD COUNT 4.31 M/uL (4.2-5.4); WHITE BLOOD COUNT 10.81 K/uL (4.8-10.8)
[2016-10-14 10:11] LABS: URINE APPEARANCE CLEAR (CLEAR); URINE BILIRUBIN NEG (NEG); URINE COLOR YELLOW; URINE NITRITE NEG (NEG); URINE SPECIFIC GRAVITY 1.005 (1.000-1.030); UROBILINOGEN NEG (NEG); ZZUR CULT IF INDIC CLEAN CATCH NO
[2016-10-14 10:13] LABS: MANUAL MICROSCOPIC REQUIRED? NO; REVIEW REQ? NO
[2016-10-14 10:24] LABS: ALT/SGPT 28 U/L (12-78); BLOOD UREA NITROGEN 17 mg/dl (7-18); BUN/CREATININE RATIO 19.6 (10-20); CALCIUM 9.6 mg/dl (8.5-10.1); CARBON DIOXIDE 27 mmol/L (21-32); CHLORIDE 105 mmol/L (98-107); CREATININE 0.85 mg/dl (0.60-1.20); GLUCOSE 109 mg/dl (70-99); POTASSIUM 4.3 mmol/L (3.5-5.1); SODIUM 141 mmol/L (136-145)
--- NOTE | 2016-10-14 10:27 | DIAGNOSTIC IMAGING REPORT ---
CHEST 1 VW FRONT-NOT PORTABLE CLINICAL HISTORY: epigastric pain dyspnea COMPARISON STUDY: 08/24/2016 FINDINGS: The bones soft tissues and hemidiaphragms are normal. The cardiomediastinal silhouette is normal. The lungs are clear. The pulmonary vasculature is normal. IMPRESSION: Negative chest. Electronically signed by: David Lowe M.D. 10/14/2016 10:25 AM Dictated Date/Time: 10/14/2016 10:25 AM
[2016-10-14 10:28] LABS: ALKALINE PHOSPHATASE 68 U/L (45-117); AST/SGOT 7 U/L (15-37)
--- NOTE | 2016-10-14 10:29 | DIAGNOSTIC IMAGING REPORT ---
Right upper quadrant ultrasound GALLBLADDER-ABD LIMITED CLINICAL HISTORY: rug pain nausea TECHNIQUE: Ultrasound COMPARISON STUDY: 08/24/2016 FINDINGS: Fatty infiltration of the liver and normal gallbladder. Common bile duct 3 mm. Poor visibility of the pancreas due to overlying bowel content. Right kidney is negative for hydronephrosis. IMPRESSION: Fatty infiltration of liver. Otherwise negative study. No change from the prior exam. Electronically signed by: David Lowe M.D. 10/14/2016 10:27 AM Dictated Date/Time: 10/14/2016 10:26 AM
[2016-10-14] MEDS ORDERED: OXYC1TAB3 PO (10:55)
--- NOTE | 2016-10-14 10:56 | EMERGENCY ROOM VISIT NOTE ---
History First contact with patient: 09:27 Chief Complaint: BACK PAIN Stated Complaint: FIBRO FLARE-UP/PAIN IN LOWER BACK, LEGS, HANDS History of Present Illness The patient is a 46 year old female who presents to the Emergency Room with complaints of fibromyalgia exacerbation. The patient states her symptoms started 5 days ago. She reports a headache, feeling flushed, diffuse pain. She states she has also vomited. She states that she noticed epigastric pain when she was laying flat at night, felt acid go into her throat and she threw up. She denies any true chest pain or trouble breathing. She rates her discomfort an 8/10. She denies any fevers, chills, earache, sore throat or cough. She denies any numbness, tingling or weakness. The patient states this feels very typical of her fibromyalgia exacerbation. She had an extensive evaluation last month. The patient drove herself to the emergency department. Review of Systems A 10 system review of systems was completed with positives and pertinent negatives listed in the HPI. Past Medical/Surgical History Medical Problems: (1) Abdominal pain (2) Acute exacerbation of chronic low back pain (3) Asthma, Unspecified (4) Back pain (5) Back pain (6) Back pain (7) Back strain (8) Back strain (9) Chronic Obstructive Pulmonary Disease, Unspecified (10) Fibromyalgia (11) Fibromyalgia (12) Fracture of metatarsal bone (13) Generalized pain (14) Lumbago (15) Lupus anticoagulant disorder (16) Musculoskeletal chest pain (17) Nodule of chest wall (18) Splenomegaly (19) Swelling of both lower extremities (20) Thoracic back pain (21) Upper abdominal pain Family History Hypertension Stroke Social History Smoking Status: Current Every Day Smoker Alcohol Use: occasionally Housing Status: other Occupation Status: employed Current/Historical Medications Scheduled Acetaminophen (Tylenol), 1,000 MG PO Q6 Albuterol Sulfate (Proventil Hfa), 2 PUFF INH DAILY Hydroxychloroquine Sulfate (Plaquenil), 200 MG PO DAILY Prednisone (Prednisone), 5 MG PO UD Trazodone Hcl (Trazodone), 100 MG PO HS Scheduled PRN Albuterol Sulf (Albuterol Sulfate), 2.5 MG INH Q6H PRN for Shortness of Breath Cyclobenzaprine Hcl (Flexeril), 10 MG PO Q6-8H PRN for Muscle Spasms Oxycodone Ir (Roxicodone Ir), 1 TAB PO Q6 PRN for Pain Allergies Coded Allergies: Diphenhydramine (Verified Allergy, Unknown, JITTERY, 10/14/16) Milnacipran (Verified Allergy, Unknown, VOMITS, 10/14/16) Physical Exam Vital Signs Date Time Temp Pulse Resp B/P Pulse Ox O2 Delivery O2 Flow Rate FiO2 10/14/16 11:13 82 14 148/92 97 10/14/16 09:05 36.9 95 18 142/90 96 Room Air Physical Exam VITALS: Vitals are noted on the nurse's note and reviewed by myself. Vital signs stable. The patient is afebrile. GENERAL: This is a 46-year-old female, in no acute distress, nondiaphoretic, well-developed well-nourished. SKIN: The skin was without rashes, erythema, edema, or bruising. There is no tenting of the skin. Capillary reflex less than 2 seconds. HEAD: Normocephalic atraumatic. EARS: The external ears are normal in appearance. EYES: Pupils equal round and reactive to light and accommodation. Conjunctivae without injection, sclerae without icterus. Extraocular movements intact. NOSE: Patent, turbinates without inflammation or discharge. MOUTH: Mucous membranes moist. Tonsils are not enlarged. Pharynx without erythema or exudate. Uvula midline. Airway patent. Tongue does not deviate. NECK: Supple without nuchal rigidity. No lymphadenopathy. No thyromegaly. Cervical spine is nontender. No JVD. HEART: Regular rate and rhythm without murmurs gallops or rubs. LUNGS: Clear to auscultation bilaterally without wheezes, rales or rhonchi. No retractions or accessory muscle use. ABDOMEN: Positive bowel sounds x 4. Soft, moderate epigastric and right upper quadrant tenderness, without masses or organomegaly. MUSCULOSKELETAL: No muscle atrophy, erythema, or edema noted. Full range of motion in all extremities. Normal gait. Strength 5/5 throughout. NEURO: Patient was alert and oriented to person place and time. No focal neurological deficits. Medical Decision & Procedures ER Provider Diagnostic Interpretation: CHEST 1 VW FRONT-NOT PORTABLE CLINICAL HISTORY: epigastric pain dyspnea COMPARISON STUDY: 08/24/2016 FINDINGS: The bones soft tissues and hemidiaphragms are normal. The cardiomediastinal silhouette is normal. The lungs are clear. The pulmonary vasculature is normal. IMPRESSION: Negative chest. Right upper quadrant ultrasound GALLBLADDER-ABD LIMITED CLINICAL HISTORY: rug pain nausea TECHNIQUE: Ultrasound COMPARISON STUDY: 08/24/2016 FINDINGS: Fatty infiltration of the liver and normal gallbladder. Common bile duct 3 mm. Poor visibility of the pancreas due to overlying bowel content. Right kidney is negative for hydronephrosis. IMPRESSION: Fatty infiltration of liver. Otherwise negative study. No change from the prior exam. Laboratory Results 10/14/16 09:50 Red Blood Count 4.31, Mean Corpuscular Volume 94.0, Mean Corpuscular Hemoglobin 32.0, Mean Corpuscular Hemoglobin Concent 34.1, Mean Platelet Volume 11.1, Neutrophils (%) (Auto) 83.6, Lymphocytes (%) (Auto) 12.0, Monocytes (%) (Auto) 3.9, Eosinophils (%) (Auto) 0.0, Basophils (%) (Auto) 0.0, Neutrophils # (Auto) 9.04, Lymphocytes # (Auto) 1.30, Monocytes # (Auto) 0.42, Eosinophils # (Auto) 0.00, Basophils # (Auto) 0.00 10/14/16 09:50 Test 10/14/16 09:45 10/14/16 09:50 Urine Color YELLOW Urine Appearance CLEAR (CLEAR) Urine pH 5.0 (4.5-7.5) Urine Specific [place] 1.005 (1.000-1.030) Urine Protein NEG (NEG) Urine Glucose (UA) NEG (NEG) Urine Ketones NEG (NEG) Urine Occult Blood NEG (NEG) Urine Nitrite NEG (NEG) Urine Bilirubin NEG (NEG) Urine Urobilinogen NEG (NEG) Urine Leukocyte Esterase NEG (NEG) White Blood Count 10.81 K/uL (4.8-10.8) Red Blood Count 4.31 M/uL (4.2-5.4) Hemoglobin 13.8 g/dL (12.0-16.0) Hematocrit 40.5 % (37-47) Mean Corpuscular Volume 94.0 fL (80-100) Mean Corpuscular Hemoglobin 32.0 pg (25-34) Mean Corpuscular Hemoglobin Concent 34.1 g/dl (32-36) Platelet Count 167 K/uL (130-400) Mean Platelet Volume 11.1 fL (7.4-10.4) Neutrophils (%) (Auto) 83.6 % Lymphocytes (%) (Auto) 12.0 % Monocytes (%) (Auto) 3.9 % Eosinophils (%) (Auto) 0.0 % Basophils (%) (Auto) 0.0 % Neutrophils # (Auto) 9.04 K/uL (1.4-6.5) Lymphocytes # (Auto) 1.30 K/uL (1.2-3.4) Monocytes # (Auto) 0.42 K/uL (0.11-0.59) Eosinophils # (Auto) 0.00 K/uL (0-0.5) Basophils # (Auto) 0.00 K/uL (0-0.2) RDW Standard Deviation 44.6 fL (36.4-46.3) RDW Coefficient of Variation 12.9 % (11.5-14.5) Immature Granulocyte % (Auto) 0.5 % Immature Granulocyte # (Auto) 0.05 K/uL (0.00-0.02) Anion Gap 9.0 mmol/L (3-11) Est Creatinine Clear Calc Drug Dose 69.6 ml/min Estimated GFR () 94.6 Estimated GFR (Non- 81.6 BUN/Creatinine Ratio 19.6 (10-20) Calcium Level 9.6 mg/dl (8.5-10.1) Total Bilirubin 0.3 mg/dl (0.2-1) Aspartate Amino Transf (AST/SGOT) 7 U/L (15-37) Alanine Aminotransferase (ALT/SGPT) 28 U/L (12-78) Alkaline Phosphatase 68 U/L (45-117) Troponin I < 0.015 ng/ml (0-0.045) Total Protein 7.3 gm/dl (6.4-8.2) Albumin 3.6 gm/dl (3.4-5.0) Globulin 3.7 gm/dl (2.5-4.0) Albumin/Globulin Ratio 1.0 (0.9-2) Lipase 181 U/L (73-393) Medications Administered Medications (Trade) Dose Ordered Sig/Lindsay Route Start Time Stop Time Status Last Admin Dose Admin Sodium Chloride (Nss 1000ml) 1,000 ml @ 999 mls/hr Q1H1M STAT IV 10/14/16 09:38 10/14/16 10:38 DC 10/14/16 10:03 999 MLS/HR Procedure The patient was monitored on a jewel setter. They maintained a normal sinus rhythm without ectopy. ECG Indication: abdominal pain Rate (beats per minute): 88 Rhythm: normal sinus Findings: PVC Change: PVCs now present ED Course The patient was seen and examined. Previous visits were reviewed. The patient does not have a fever. She has a minimal cytosis of 10.81. She does not have any significant electrolyte abnormalities. Troponin was not elevated. Lipase was not elevated. Urinalysis was negative. The patient was hydrated with normal saline The patient drove herself to the emergency department and therefore I could not give her any narcotics while in the emergency department The patient presents to the emergency department with what she describes as a fibromyalgia exacerbation. The patient has also had symptoms that suggest reflux. She has epigastric discomfort, feels acid in her esophagus, particularly when she is laying flat and this has caused her to vomit. She took Prilosec 1 days. I did advise her that she should take the Prilosec every day for the next 14 days. She will begin a very small prescription for pain medication. She should follow-up with her family doctor for further evaluation and management. She should return to the emergency Department with any worsening symptoms. The case was discussed with Dr. Vargas who agrees with the assessment and treatment plan Medical Decision DIFFERENTIAL DIAGNOSIS: Hepatitis, cholecystitis, cholangitis, biliary colic, pancreatitis, pneumonia, subdiaphragmatic abscess, appendicitis, inguinal hernia , nephrolithiasis, inflammatory bowel disease, mesenteric adenitis, peptic ulcer disease, GERD, gastritis, pancreatitis, myocardial infarction, pericarditis, ruptured aortic aneurysm, appendicitis, gastroenteritis, bowel obstruction, splenic infarct, diverticulitis, mesenteric ischemia, metabolic, peritonitis, among others. [place] Drug Monitoring [place] Search Results: patient reviewed within database, no issues identified Impression Primary Impression: Generalized pain Additional Impressions: Fibromyalgia GERD (gastroesophageal reflux disease) Departure Information Dispostion Home / Self-Care Condition GOOD Prescriptions Oxycodone Ir (Roxicodone Ir) 5 Mg Tab 1 TAB PO Q6 Y for Pain, #12 TAB For Initial Treatment Prov: Cecelia Coe PA-C 10/14/16 Referrals Alva Burns D.O. (PCP) Patient Instructions Fibromyalgia, My [facility] Additional Instructions Oxy IR 1-2 tablets every 4-6 hrs as needed for worse pain. No driving or alcohol use with Oxy IR. Take the Prilosec once daily for 14 days Return with any worsening symptoms Problem Qualifiers
[2016-10-14 11:13] VITALS: BP 148/92; PULSE 82; O2SAT 97
[2016-12-27] MEDS ORDERED: CYCL10TA6 PO (09:29)
[2016-12-27] MEDS ORDERED: ACET-1256 PO (12:56)
[2016-12-27] MEDS ORDERED: HYDR200T5 PO (17:34)
[2016-12-27] MEDS ORDERED: IBUP-1050 PO (20:18)
== END 2016-10-14 11:13 | disposition home or self-care (01) ==
LOC: C.EDB 09:03 → C.EDA 11:13
DX: R52 Pain, unspecified (principal); M79.7 Fibromyalgia; K21.9 Gastro-esophageal reflux disease without esophagitis; J45.909 Unspecified asthma, uncomplicated; J44.9 Chronic obstructive pulmonary disease, unspecified; Z90.89 Acquired absence of other organs; Z82.49 Family history of ischemic heart disease and other diseases of the circulatory system; Z82.3 Family history of stroke; F17.200 Nicotine dependence, unspecified, uncomplicated

== ENCOUNTER 2016-11-16 22:12 | Emergency (ER) | payer OTHER ==
[~2016-11-16] VITALS: Ht 147.3 cm; Wt 72.7 kg
[~2016-11-16 22:12] MED LIST changes: +ALBINSX INH; -DOXY100C76 PO; +OXYC1TAB3 PO; +PRED-301 PO
[2016-11-16 22:16] VITALS: TEMP 36.6; Ht 147.3 cm; Wt 72.7 kg
[2016-11-16] MEDS ORDERED: OXYCODONE IR HOME PACK PO ONE (23:15)
[2016-11-16] MEDS ORDERED: OXYC1TAB3 PO (23:34)
--- NOTE | 2016-11-16 23:40 | EMERGENCY ROOM VISIT NOTE ---
History First contact with patient: 22:43 Chief Complaint: BACK PAIN Stated Complaint: UPPER AND LOWER BACK PAIN AND NUMBNESS GOING DOWN History of Present Illness The patient is a 46 year old female who presents to the Emergency Room with complaints of right shoulder/back pain. The patient reports that the pain began approximately 2 hours ago. The pain is located in the right side of the back and radiates down her right arm and the outside of her right leg. She has taken Tylenol without relief. She rates the discomfort a 10/10 and states it is worse with movement. She has a history of fibromyalgia and states this is similar to pain she has had in the past. She denies any difficulty breathing or chest pain. She denies any numbness or weakness. Review of Systems A complete 10-point Review of Systems was discussed with the patient, with pertinent positives and negatives listed in the History of Present Illness. All remaining Review of Systems questions can be considered negative unless otherwise specified. Past Medical/Surgical History Medical Problems: (1) Abdominal pain (2) Acute exacerbation of chronic low back pain (3) Asthma, Unspecified (4) Back pain (5) Back pain (6) Back pain (7) Back strain (8) Back strain (9) Chronic Obstructive Pulmonary Disease, Unspecified (10) Fibromyalgia (11) Fibromyalgia (12) Fracture of metatarsal bone (13) Generalized pain (14) Lumbago (15) Lupus anticoagulant disorder (16) Musculoskeletal chest pain (17) Nodule of chest wall (18) Splenomegaly (19) Swelling of both lower extremities (20) Thoracic back pain (21) Upper abdominal pain Family History Hypertension Stroke Social History Smoking Status: Current Every Day Smoker Alcohol Use: occasionally Housing Status: other Occupation Status: employed Current/Historical Medications Scheduled Acetaminophen (Tylenol), 1,000 MG PO Q6 Albuterol Sulfate (Proventil Hfa), 2 PUFF INH DAILY Hydroxychloroquine Sulfate (Plaquenil), 200 MG PO DAILY Prednisone (Prednisone), 5 MG PO UD Trazodone Hcl (Trazodone), 100 MG PO HS Scheduled PRN Albuterol Sulf (Albuterol Sulfate), 2.5 MG INH Q6H PRN for Shortness of Breath Cyclobenzaprine Hcl (Flexeril), 10 MG PO Q6-8H PRN for Muscle Spasms Oxycodone Ir (Roxicodone Ir), 1 TAB PO Q6 PRN for Pain Oxycodone Ir (Roxicodone Ir), 1-2 TAB PO Q4H PRN for Pain Allergies Coded Allergies: Diphenhydramine (Verified Allergy, Unknown, JITTERY, 10/14/16) Milnacipran (Verified Allergy, Unknown, VOMITS, 10/14/16) Physical Exam Vital Signs Date Time Temp Pulse Resp B/P Pulse Ox O2 Delivery O2 Flow Rate FiO2 11/16/16 23:53 82 20 150/92 98 11/16/16 22:16 36.6 96 18 139/93 94 Room Air Physical Exam VITALS: Vitals are noted on the nurse's note and reviewed by myself. Vital signs stable. GENERAL: This is a 46-year-old female, in no acute distress, nondiaphoretic, well-developed well-nourished. SKIN: Capillary reflex less than 2 seconds. No rashes. HEART: Regular rate and rhythm without murmurs gallops or rubs. LUNGS: Clear to auscultation bilaterally without wheezes, rales or rhonchi. No retractions or accessory muscle use. ABDOMEN: Soft, nontender. MUSCULOSKELETAL: There is point tenderness over the medial border of the right scapula. There is a small palpable muscle spasm. NEURO: Patient was alert and oriented to person place and time. Normal sensation to light and sharp touch. Medical Decision & Procedures Medications Administered Medications (Trade) Dose Ordered Sig/Lindsay Route Start Time Stop Time Status Last Admin Dose Admin Oxycodone HCl (Roxicodone Immediate Rel 5MG Home Pack) 1 homepack UD ONCE PO 11/16/16 23:15 11/16/16 23:16 DC 11/16/16 23:47 1 HOMEPACK Medical Decision The patient was evaluated as above. She has point tenderness and pain which is worse with movement. This does appear to be musculoskeletal. She does not have any chest pain or shortness of breath to suggest a pulmonary embolism. She has a history of fibromyalgia and states this feels similar to pain she has had in the past due to her fibromyalgia. I did agree to give the patient is very short course of pain medication, but informed her that she will need to follow-up with her primary care provider for further evaluation of this pain. She verbalized understanding of my assessment and treatment plan and was discharged home in good condition. [place] Drug [place] Search Results: patient reviewed within database, no issues identified Impression Primary Impression: Thoracic back pain Departure Information Dispostion Home / Self-Care Condition GOOD Prescriptions Oxycodone Ir (Roxicodone Ir) 5 Mg Tab 1-2 TAB PO Q4H Y for Pain, #10 TAB For Initial Treatment Prov: Carmen Silva PA-C 11/16/16 Referrals Alva Burns D.O. (PCP) Patient Instructions My [facility] Additional Instructions You have been treated in the Emergency Department for Back Pain. You have been prescribed Oxy IR to be used for pain control. This is a narcotic medication. You cannot drive or consume alcohol while on this medicine. This medicine should only be used for pain that cannot be controlled with over-the- counter pain medicines. For pain control, you can use the following [id number] medicines (if >12 yo): - Regular strength (325mg/tab) Tylenol (acetaminophen) 2 tabs every 4-6 hours as needed. Do not exceed 12 tablets in a 24 hour period. Avoid taking more than 4 grams (4000 mg) of Tylenol per day. This includes any other sources of acetaminophen you may take on a regular basis. - Regular strength (200 mg/tab) Advil (ibuprofen) 1-2 tabs every 4-6 hours as needed. Do not exceed a dose of 3200 mg per day. If this is an acute injury, ice can be applied to the area of pain for the first 3 days to help decrease pain and inflammation. After the first 3 days, a heating pad can be used over the area for continued soothing relief. You should schedule a follow-up appointment in 2-3 days with your Primary Care Provider for further evaluation and treatment of your back pain. Return to the Emergency Department if your current symptoms worsen despite treatment course outlined above, or if you develop any of the following symptoms : intractable pain despite aforementioned treatment course, loss of control of your bowel or bladder, numbness or tingling in your groin, or development of a fever. Problem Qualifiers Primary Impression: Thoracic back pain Chronicity: acute Back pain laterality: right Qualified Codes: M54.6 - Pain in thoracic spine
[2016-11-16 23:53] VITALS: BP 150/92; PULSE 82; O2SAT 98
[2016-12-27] MEDS ORDERED: CYCL10TA6 PO (09:29)
[2016-12-27] MEDS ORDERED: ACET-1256 PO (12:56)
[2016-12-27] MEDS ORDERED: HYDR200T5 PO (17:34)
[2016-12-27] MEDS ORDERED: IBUP-1050 PO (20:18)
== END 2016-11-16 23:56 | disposition home or self-care (01) ==
LOC: C.EDB 22:13 → C.EDA 23:56
DX: M54.6 Pain in thoracic spine (principal); J44.9 Chronic obstructive pulmonary disease, unspecified; J45.909 Unspecified asthma, uncomplicated; G89.29 Other chronic pain; F17.200 Nicotine dependence, unspecified, uncomplicated; Z87.81 Personal history of (healed) traumatic fracture; Z79.899 Other long term (current) drug therapy; Z88.8 Allergy status to other drugs, medicaments and biological substances; Z82.49 Family history of ischemic heart disease and other diseases of the circulatory system

== ENCOUNTER 2016-12-12 20:02 | Emergency (ER) | payer OTHER ==
[~2016-12-12] VITALS: Ht 147.3 cm; Wt 73.0 kg
[2016-12-12 20:07] VITALS: TEMP 36.7; Ht 147.3 cm; Wt 73.0 kg
[2016-12-12] MEDS ORDERED: ACETAMINOPHEN 500 MG TAB PO STA (20:36)
--- NOTE | 2016-12-12 21:43 | DIAGNOSTIC IMAGING REPORT ---
RIGHT WRIST MIN 3 VIEWS ROUTINE CLINICAL HISTORY: Right wrist pain status post steroid injection COMPARISON: None. DISCUSSION: No fractures or dislocations are visualized. There are no destructive lesions. IMPRESSION: No significant bony abnormalities Electronically signed by: Claudio Quijano M.D. 12/12/2016 9:42 PM Dictated Date/Time: 12/12/2016 9:42 PM
--- NOTE | 2016-12-12 21:44 | DIAGNOSTIC IMAGING REPORT ---
RIGHT KNEE 3 VIEWS CLINICAL HISTORY: Right knee pain status post injection COMPARISON: None. DISCUSSION: No fractures or dislocations are visualized. No destructive lesions are evident. IMPRESSION: No significant bony abnormalities Electronically signed by: Claudio Quijano M.D. 12/12/2016 9:43 PM Dictated Date/Time: 12/12/2016 9:42 PM
[2016-12-12] MEDS ORDERED: OXYCODONE IR HOME PACK PO ONE (22:30)
[2016-12-12 22:51] VITALS: BP 146/90; PULSE 81; O2SAT 93
--- NOTE | 2016-12-13 01:10 | EMERGENCY ROOM VISIT NOTE ---
ED Visit Note First contact with patient: 20:25 Chief Complaint: Right thumb and right knee pain. History of Present Illness: Ms. Bailey is a 46-year-old white female who ambulates into the ED complaining of right thumb and right knee pain. Historically patient reports she has severe arthritis of the hands and knees. Patient reports approximately 7.5 hours ago she was seen by her hardware engineering manager. She reports she received injections to the right thumb, right knee, left thumb and left knee for her osteoarthritis. She is not exactly sure of the medication that was injected but believes it could've been steroids. She says she has re-see these multiple times in the past and has had no complications. Patient reports approximately 2 hours before she arrived in the emergency department she started experiencing pain in the right thumb and right knee in the area of her injections. Since that time her pain has been constant. She describes her pain as a throbbing and achy sensation. She rates her overall discomfort 8/10. Her pain is nonradiating. Her pain worsens with palpation of the thumb and knee and all movements of the first MCP joint and the knee joint. She has not identified any alleviating factors related to the pain. She reports she has taken 400 mg of ibuprofen shortly after her pain started and hasn't had no relief of her discomfort. She denies any associated symptoms including fevers, chills, sweats, skin eruptions, skin color changes, recent new or repetitive trauma, right upper or lower extremity weakness/numbness/ tingling. Review of Systems: As noted above in history of present illness. 8 body systems were reviewed and found to be negative as noted above. Past Medical History: Fibromyalgia, osteoarthritis,, unspecified abdominal pain , unspecified skin disorder, chronic lumbar back pain, COPD, splenomegaly, thoracic back pain, status post surgical repair of club foot, hysterectomy and unspecified hernia surgery. Current Medications: Medications Dose Route/Sig Max Daily Dose Days Date Category Advil (Ibuprofen) 200 Mg Tab 400 Mg PO Q6H PRN 12/12/16 Reported Albuterol Sulfate (Albuterol Sulf) 2.5 Mg/3 Ml Nebu 2.5 Mg INH Q6H PRN 10/14/16 Reported Flexeril (Cyclobenzaprine Hcl) 10 Mg Tab 10 Mg PO Q6-8H PRN 10/14/16 Reported Plaquenil (Hydroxychloroquine Sulfate) 200 Mg Tab 200 Mg PO DAILY 08/24/16 Reported Proventil Hfa (Albuterol Sulfate) 108 Mcg/Act Aer 2 Puff INH DAILY 08/10/16 Reported Tylenol (Acetaminophen) 500 Mg Tab 1,000 Mg PO Q6 08/10/16 Reported Trazodone (Trazodone HCl) 50 Mg Tab 100 Mg PO HS 05/17/16 Reported Allergies to Medications: Diphenhydramine, milnacipran. Social History: Patient is currently employed; she lives with her daughter and feels safe in her home environment; she admits to tobacco use and denies alcohol use. Physical Examination: Vital Signs: Date Time Temp Pulse Resp B/P Pulse Ox O2 Delivery O2 Flow Rate FiO2 12/12/16 22:51 81 20 146/90 93 Room Air 12/12/16 21:49 83 20 135/90 95 Room Air 12/12/16 20:07 36.7 93 20 154/82 95 Room Air GENERAL: 46-year-old female in mild to moderate distress due to pain, nontoxic- appearing, afebrile and hemodynamically stable. Patient is intermittently tearful. NEUROLOGICAL: Awake, alert and oriented to person, place and time. Answering questions appropriately and following commands. Normal gait. Good hand eye coordination. No focal motor or sensory deficits. SKIN: Warm, dry and pink. No soft tissue eruptions or trauma noted. Injection sites were observed and there were no local signs of infection or inflammation. RIGHT HAND: No gross bony deformity. Patient has moderate tenderness over the first metacarpal and first metacarpal phalangeal joint. There is no local erythema or edema. No bony deformity or crepitus. She refuses to do range of motion due to pain. I was able to stress her ligaments and no laxity was noted. I did not appreciate any bony deformity or crepitus. Throughout the thumb the skin was warm and pink and capillary refill is brisk. She is able to distinguish light sensations through all dermatomes. RIGHT KNEE: No gross bony deformity. Moderate tenderness over her injection site. There is no local erythema or edema. I do not appreciate any bony deformity or crepitus. Negative ballottement test. Negative bounce test. Negative patellar apprehension test. No laxity of the collateral or cruciate ligaments. Vidal's test was unremarkable. Full range of motion in flexion and extension of the knee and plantar flexion and dorsiflexion of the foot. Throughout the foot the skin was warm and pink and capillary refill is brisk. She is able to distinguish light sensations through all dermatomes of the foot. MTP and ED Course: Patient is assessed as noted above. Right Hand X-Rays: Were read by myself and the radiologist and shows no acute fractures or dislocations. No signs of joint swelling or foreign bodies. Right Knee X-Rays: Were read by myself and the radiologist showing no acute fractures or dislocations. No joint swellings or foreign bodies. Patient was given 1 g of acetaminophen for her pain by mouth; she did report she drove her cell to the hospital and I was not able to give her any stronger pain medications. Patient was placed in a thumb spica splint; patient was offered a knee splint and refused. Patient's case was reviewed with Dr. Mar; we agreed on diagnostic approach , treatment, disposition and plan. Patient was educated about tonight's findings and instructed on her treatment plan; she verbalizes understanding and agreement with this plan. Clinical Impression: Right thumb pain. Right knee pain. Status post thumb the knee injections. Decision-Making: Initially my differential diagnosis I considered infection, worsening arthritis, foreign bodies and other causes. Disposition: Patient discharged home in stable condition; prior to departure she was reassessed and subjectively reported she was feeling the same. Plan: Patient was encouraged to continue her current medications. Patient was placed on a sliding pain medication scale of ibuprofen, acetaminophen and OxyIR. Other comfort measures were discussed with the patient including rest, splint use, ice. Patient was encouraged to contact her hardware engineering manager tomorrow and request follow -up care and treatment. Patient was encouraged return the ED for uncontrolled pain, fevers, joint swelling/redness or any new/concerning symptoms.
[2016-12-27] MEDS ORDERED: CYCL10TA6 PO (09:29)
[2016-12-27] MEDS ORDERED: ACET-1256 PO (12:56)
[2016-12-27] MEDS ORDERED: HYDR200T5 PO (17:34)
[2016-12-27] MEDS ORDERED: IBUP-1050 PO (20:18)
== END 2016-12-12 22:55 | disposition home or self-care (01) ==
LOC: C.EDB 20:04 → C.EDD 22:55
DX: M79.644 Pain in right finger(s) (principal); M25.561 Pain in right knee; M19.90 Unspecified osteoarthritis, unspecified site; G89.29 Other chronic pain; J44.9 Chronic obstructive pulmonary disease, unspecified; F17.200 Nicotine dependence, unspecified, uncomplicated; Z90.710 Acquired absence of both cervix and uterus; Z98.890 Other specified postprocedural states; Z79.899 Other long term (current) drug therapy; Z88.8 Allergy status to other drugs, medicaments and biological substances

== ENCOUNTER 2016-12-27 21:18 | Emergency (ER) | payer OTHER ==
[~2016-12-27] VITALS: Ht 147.3 cm; Wt 73.8 kg
[~2016-12-27 21:18] MED LIST changes: +ACET-1256 PO; +CYCL10TA6 PO; +HYDR200T5 PO; +IBUP-1050 PO; -OXYC1TAB3 PO; -PRED-301 PO
[2016-12-27 21:25] VITALS: TEMP 36.6; Ht 147.3 cm; Wt 73.8 kg
[2016-12-27] MEDS ORDERED: SODIUM CHLORIDE 0.9% 1000ML 1,000 ML IV STA (21:48)
[2016-12-27] MEDS ORDERED: METOCLOPRAMIDE HCL INJ 5 MG/ML 2 ML VIAL IV STA (21:48)
[2016-12-27] MEDS ORDERED: SODIUM CHLORIDE 0.9% 500ML 500 ML IV STA (21:48)
[2016-12-27] MEDS ORDERED: FAMOTIDINE 20MG/102 ML D5W IV STA (21:48)
[2016-12-27] MEDS ORDERED: DICYCLOMINE HCL 10 MG/ML 2 ML AMP IM ONE (22:00)
--- NOTE | 2016-12-27 22:12 | DIAGNOSTIC IMAGING REPORT ---
CHEST ONE VIEW PORTABLE CLINICAL HISTORY: Atypical chest pain COMPARISON STUDY: 10/14/2016 FINDINGS: The heart is normal in size. There is no failure. There is no focal pulmonary consolidation. There is mild prominence of the right paratracheal soft tissues. This finding remains similar to prior studies.[ IMPRESSION: No active disease in the chest. Electronically signed by: Claudio Quijano M.D. 12/27/2016 10:11 PM Dictated Date/Time: 12/27/2016 10:08 PM
[2016-12-27 22:34] VITALS: O2SAT 95
[2016-12-27] MEDS ORDERED: MOME200A INH (22:41)
[2016-12-27] MEDS ORDERED: BUPR-79 PO (22:41)
[2016-12-27] MEDS ORDERED: PREG1CAP28 PO (22:41)
[2016-12-27] MEDS ORDERED: IPRASOL4 INH (22:41)
[2016-12-27] MEDS ORDERED: VNTHFA/IN INH (22:41)
[2016-12-27 23:00] LABS: BASO % 0.3 %; BASO ABS # 0.02 K/uL (0-0.2); COMPLETE YES; EOS % 3.2 %; HEMATOCRIT 39.2 % (37-47); IG% 0.1 %; LYMPH % 28.4 %; LYMPH ABS # 1.95 K/uL (1.2-3.4); MEAN CELL VOLUME 97.3 fL (80-100); MEAN CORPUSCULAR HEMOGLOBIN 32.3 pg (25-34); MEAN CORPUSCULAR HGB CONC 33.2 g/dl (32-36); MEAN PLATELET VOLUME 11.2 fL (7.4-10.4); MONO % 4.7 %; NEUT % 63.3 %; PLATELET COUNT 133 K/uL (130-400); RED BLOOD COUNT 4.03 M/uL (4.2-5.4); WHITE BLOOD COUNT 6.87 K/uL (4.8-10.8)
[2016-12-27 23:17] LABS: ALT/SGPT 27 U/L (12-78); AST/SGOT 10 U/L (15-37); BLOOD UREA NITROGEN 11 mg/dl (7-18); BUN/CREATININE RATIO 12.2 (10-20); CARBON DIOXIDE 30 mmol/L (21-32); CHLORIDE 106 mmol/L (98-107); CREATININE 0.86 mg/dl (0.60-1.20); GLUCOSE 100 mg/dl (70-99); POTASSIUM 3.9 mmol/L (3.5-5.1); SODIUM 142 mmol/L (136-145)
[2016-12-27 23:22] LABS: ALKALINE PHOSPHATASE 75 U/L (45-117)
[2016-12-27] MEDS ORDERED: TRAZ50TA35 PO (23:26)
[2016-12-28] MEDS ORDERED: OPTIRAY 320 IV PRN (00:30)
[2016-12-28] MEDS ORDERED: PANT40TA PO (01:18)
[2016-12-28 01:23] VITALS: BP 141/87; PULSE 78; O2SAT 92
--- NOTE | 2016-12-28 01:24 | EMERGENCY ROOM VISIT NOTE ---
History First contact with patient: 21:36 Chief Complaint: ABDOMINAL PAIN Stated Complaint: PAIN IN LEFT AB AND BACK Nursing Triage Summary: Patient reports left abdominal pain that is sharp & intermittent x2 days. Today pain has become more severe, frequent & radiating into left flank/back. Denies dysuria. Denies constipation or diarrhea. Reports nausea but denies loss of appetite & vomitting. hx-abdominal surgery. History of Present Illness The patient is a 46 year old female who presents to the Emergency Room with complaints of upper abdominal pain for the past 2 days described as aching, ranging in severity 6 out of 10. Patient had this pain before. Patient denies chest pain, dyspnea, fever, chills, nausea, vomiting, diarrhea, leg pain or swelling, urinary symptoms. She is tolerating by mouth fluids and food. Review of Systems See HPI for pertinent positives & negatives. A total of 10 systems reviewed and were otherwise negative. Past Medical/Surgical History Medical Problems: (1) Abdominal pain (2) Acute exacerbation of chronic low back pain (3) Asthma, Unspecified (4) Back pain (5) Back pain (6) Back pain (7) Back strain (8) Back strain (9) Chronic Obstructive Pulmonary Disease, Unspecified (10) Fibromyalgia (11) Fibromyalgia (12) Fracture of metatarsal bone (13) Generalized pain (14) Lumbago (15) Lupus anticoagulant disorder (16) Musculoskeletal chest pain (17) Nodule of chest wall (18) Splenomegaly (19) Swelling of both lower extremities (20) Thoracic back pain (21) Upper abdominal pain Family History Hypertension Stroke Social History Smoking Status: Current Every Day Smoker Alcohol Use: occasionally Housing Status: other Occupation Status: employed Current/Historical Medications Scheduled Acetaminophen (Tylenol), 1,000 MG PO Q6H Bupropion (Wellbutrin Sr), 150 MG PO BID Hydroxychloroquine Sulfate (Plaquenil), 200 MG PO DAILY Pantoprazole (Protonix), 40 MG PO DAILY Pregabalin (Lyrica), 75 MG PO BID Trazodone Hcl (Trazodone), 100 MG PO HS Scheduled PRN Albuterol Hfa (Ventolin Hfa), 2 PUFFS INH Q4H PRN for Wheezing Cyclobenzaprine Hcl (Flexeril), 10 MG PO HS PRN for Tension Headache/Back Pain Ibuprofen (Advil), 400 MG PO Q6H PRN for Pain Ipratropium-Albuterol (Duoneb), 1 TREATMENT INH QID PRN for SOB/Wheezing Mometasone Furoate-Formoterol (Dulera 200/5 Mcg), 2 PUFFS INH BID PRN for SOB/ Wheezing Allergies Coded Allergies: Diphenhydramine (Verified Allergy, Unknown, JITTERY, 12/27/16) Milnacipran (Verified Allergy, Unknown, VOMITS, 12/27/16) Physical Exam Vital Signs Date Time Temp Pulse Resp B/P Pulse Ox O2 Delivery O2 Flow Rate FiO2 12/28/16 01:23 78 16 141/87 92 Room Air 12/27/16 22:55 75 18 142/87 95 Room Air 12/27/16 22:41 82 12/27/16 22:34 95 Room Air 12/27/16 21:25 36.6 77 18 134/77 97 Room Air Physical Exam VITALS: Vitals are noted on the nurse's note and reviewed by myself. Vital signs stable. GENERAL: Pleasant female, in no acute distress, nondiaphoretic, well-developed well-nourished. SKIN: The skin was without rashes, erythema, edema, or bruising. There is no tenting of the skin. Capillary reflex less than 2 seconds. HEAD: Normocephalic atraumatic. EARS: External auditory canals clear, tympanic membranes pearly velez without erythema or effusion bilaterally. EYES: Pupils equal round and reactive to light and accommodation. Conjunctivae without injection, sclerae without icterus. Extraocular movements intact. NOSE: Patent, turbinates without inflammation or discharge. MOUTH: Mucous membranes moist. Pharynx without erythema or exudate. Uvula midline. Airway patent. Tongue does not deviate. NECK: Supple without nuchal rigidity. No lymphadenopathy. No thyromegaly. Cervical spine is nontender. No JVD. HEART: Regular rate and rhythm without murmurs gallops or rubs. LUNGS: Clear to auscultation bilaterally without wheezes, rales or rhonchi. No dullness to percussion. No retractions or accessory muscle use. ABDOMEN: Positive bowel sounds x 4. Normal tympanic percussion. Soft, upper abdomen tenderness to palpation upper abdomen, protuberant, obese, no CVA tenderness, without masses or organomegaly. Stanley sign negative. No guarding or rebound tenderness. MUSCULOSKELETAL: No muscle atrophy, erythema, or edema noted. NEURO: Patient was alert and oriented to person place and time. Normal sensation to light and sharp touch. No focal neurological deficits. Medical Decision & Procedures Laboratory Results 12/27/16 22:37 Red Blood Count 4.03, Mean Corpuscular Volume 97.3, Mean Corpuscular Hemoglobin 32.3, Mean Corpuscular Hemoglobin Concent 33.2, Mean Platelet Volume 11.2, Neutrophils (%) (Auto) 63.3, Lymphocytes (%) (Auto) 28.4, Monocytes (%) (Auto) 4.7, Eosinophils (%) (Auto) 3.2, Basophils (%) (Auto) 0.3, Neutrophils # (Auto) 4.35, Lymphocytes # (Auto) 1.95, Monocytes # (Auto) 0.32, Eosinophils # (Auto) 0.22, Basophils # (Auto) 0.02 12/27/16 22:37 Test 12/27/16 22:37 12/27/16 22:42 White Blood Count 6.87 K/uL (4.8-10.8) Red Blood Count 4.03 M/uL (4.2-5.4) Hemoglobin 13.0 g/dL (12.0-16.0) Hematocrit 39.2 % (37-47) Mean Corpuscular Volume 97.3 fL (80-100) Mean Corpuscular Hemoglobin 32.3 pg (25-34) Mean Corpuscular Hemoglobin Concent 33.2 g/dl (32-36) Platelet Count 133 K/uL (130-400) Mean Platelet Volume 11.2 fL (7.4-10.4) Neutrophils (%) (Auto) 63.3 % Lymphocytes (%) (Auto) 28.4 % Monocytes (%) (Auto) 4.7 % Eosinophils (%) (Auto) 3.2 % Basophils (%) (Auto) 0.3 % Neutrophils # (Auto) 4.35 K/uL (1.4-6.5) Lymphocytes # (Auto) 1.95 K/uL (1.2-3.4) Monocytes # (Auto) 0.32 K/uL (0.11-0.59) Eosinophils # (Auto) 0.22 K/uL (0-0.5) Basophils # (Auto) 0.02 K/uL (0-0.2) RDW Standard Deviation 46.0 fL (36.4-46.3) RDW Coefficient of Variation 12.9 % (11.5-14.5) Immature Granulocyte % (Auto) 0.1 % Immature Granulocyte # (Auto) 0.01 K/uL (0.00-0.02) Anion Gap 6.0 mmol/L (3-11) Est Creatinine Clear Calc Drug Dose 69.0 ml/min Estimated GFR () 93.2 Estimated GFR (Non- 80.4 BUN/Creatinine Ratio 12.2 (10-20) Calcium Level 9.0 mg/dl (8.5-10.1) Total Bilirubin 0.3 mg/dl (0.2-1) Direct Bilirubin < 0.1 mg/dl (0-0.2) Aspartate Amino Transf (AST/SGOT) 10 U/L (15-37) Alanine Aminotransferase (ALT/SGPT) 27 U/L (12-78) Alkaline Phosphatase 75 U/L (45-117) Troponin I < 0.015 ng/ml (0-0.045) Total Protein 6.8 gm/dl (6.4-8.2) Albumin 3.4 gm/dl (3.4-5.0) Lipase 206 U/L (73-393) Bedside Lactic Acid Venous 1.49 mmol/L (0.90-1.70) Bedside Troponin I 0.000 ng/ml (0-0.045) Medications Administered Medications (Trade) Dose Ordered Sig/Lindsay Route Start Time Stop Time Status Last Admin Dose Admin Dicyclomine HCl (Bentyl Inj) 20 mg NOW ONCE IM 12/27/16 22:00 12/27/16 22:01 DC 12/27/16 23:20 20 MG Metoclopramide HCl 10 mg 10 mg NOW STAT IV 12/27/16 21:48 12/27/16 21:50 DC 12/27/16 23:17 10 MG Sodium Chloride (Nss 1000ml) 1,000 ml @ 125 mls/hr Q8H STAT IV 12/27/16 21:48 12/28/16 05:47 12/27/16 21:48 125 MLS/HR Famotidine 20 mg 20 mg ONE STAT IV 5/31/17 21:48 12/27/16 21:50 DC 12/27/16 23:16 20 MG Sodium Chloride (Nss 500ml) 500 ml @ 999 mls/hr Q31M STAT IV 12/27/16 21:48 12/27/16 22:18 DC 12/27/16 21:48 999 MLS/HR ED Course Prior records/ancillary studies reviewed. Triage Nursing notes reviewed. The patient's history was concerning for abdominal pain. Differential diagnosis: Etiologies such as appendicitis, diverticulitis, PUD, biliary pathology, UTI, pancreatitis, obstruction, mesenteric ischemia, aortic pathology, infections, inflammatory bowel disease, renal colic, as well as others were entertained. Physical examination findings: As above. ER treatment provided: IV fluids, Bentyl, Reglan, Zantac On reassessment the patient felt better. Diagnostics interpreted by me: ECG: Normal sinus, normal intervals, no acute ST-T wave changes. Impression normal sinus rhythm interpreted by myself The labs revealed stable H&H. Negative troponin. No leukocytosis Imaging studies: Ultrasound negative for acute cholecystitis per stat radiology CHEST ONE VIEW PORTABLE CLINICAL HISTORY: Atypical chest pain COMPARISON STUDY: 10/14/2016 FINDINGS: The heart is normal in size. There is no failure. There is no focal pulmonary consolidation. There is mild prominence of the right paratracheal soft tissues. This finding remains similar to prior studies.[ IMPRESSION: No active disease in the chest. Electronically signed by: Claudio Quijano M.D. CT ABDOMEN & PELVIS: Compared to 05/05/16 Intact low colonic anastomosis again noted. Appendectomy and hysterectomy. Hepatic steatosis. L5 spondylolysis Radiologist: Yuriy Mcqueen M.D. Exam and history seem consistent with upper abdominal pain with unclear etiology. This could be reflux. Patient was started on a PPI. She is advised follow-up family care in a few days or here in the ER sooner for abdominal pain , fevers, vomiting, worsening signs or symptoms or as needed. Patient had unremarkable workup as above. She is well-appearing. She was tolerating fluids. By the evaluation outlined above emergent etiologies such as appendicitis, diverticulitis, PUD, biliary pathology, UTI, pancreatitis, obstruction, mesenteric ischemia, aortic pathology, infections, inflammatory bowel disease, renal colic, as well as others were deemed relatively unlikely. The pt informed about the findings as listed above. All questions were answered and pleased with the treatment. Return instructions were outlined and the patient was discharged in stable condition. Outpatient prescription management: Protonix Referral: The patient was referred back to their primary care physician for follow-up in 2 to 3 days for a recheck of the current condition. Case reviewed with my attending Medical Decision As above Impression Primary Impression: Upper abdominal pain Departure Information Dispostion Home / Self-Care Condition GOOD Prescriptions Pantoprazole (Protonix) 40 Mg Tab 40 MG PO DAILY for 14 Days, #14 TAB Prov: Iraida George .SHIRA 12/28/16 Referrals Alva Burns D.O. (PCP) Patient Instructions My [facility] Additional Instructions Protonix 40 m tablet daily for next 2 weeks. Take this on an empty stomach. Try Maalox or Zantac for breakthrough symptoms for reflux. Avoid large meals. Avoid acidic foods. Rest and drink plenty of fluids as tolerated. Continue current medications. Avoid strenuous activities and anything that worsens your pain. Resume normal activities once your symptoms resolve. Return to the ER immediately for worsening or persistent chest pain, abdominal pain, black or blood in your stools, vomiting, fevers, chest pains, difficulty breathing, worsening of your condition, or as needed. Follow up with your primary physician in 2-3 days for a recheck of your current condition.
--- NOTE | 2016-12-28 06:51 | DIAGNOSTIC IMAGING REPORT ---
ABDOMINAL ULTRASOUND, RIGHT UPPER QUADRANT HISTORY: Epigastric pain. COMPARISON: Right upper quadrant ultrasound October 14, 2016. FINDINGS: Hepatic echogenicity is increased. No hepatic lesions are identified and there is no biliary ductal dilatation. The gallbladder is contracted and therefore suboptimally assessed but no gallstones are identified. There is no significant gallbladder wall thickening. No pericholecystic fluid is present. The pancreas is largely obscured by overlying bowel gas. There is no right hydronephrosis. IMPRESSION: 1. No gallstones or biliary ductal dilatation. Contracted gallbladder. 2. Fatty liver. 3. Largely obscured pancreas. Electronically signed by: Armando Box M.D. 12/28/2016 6:50 AM Dictated Date/Time: 12/28/2016 6:48 AM
--- NOTE | 2016-12-28 07:40 | DIAGNOSTIC IMAGING REPORT ---
CT SCAN OF THE ABDOMEN AND PELVIS WITH IV CONTRAST CLINICAL HISTORY: Left upper quadrant abdominal pain. COMPARISON STUDY: Abdominal CT dated 05/05/2016. TECHNIQUE: Following the IV administration of 92 cc of Optiray 320, CT scan of the abdomen and pelvis is performed from the lung bases to the proximal femora. Images are reviewed in the axial, sagittal, and coronal planes. IV contrast was administered without complication. Automated dose control exposure was utilized. The examination is modestly degraded by motion artifact. CT DOSE: 517.69 mGy.cm FINDINGS: Lung bases: The heart is normal in size and without pericardial effusion. A 3 mm pleural-based nodule at the left lung base is seen on image #9 . A 3 mm right lower lobe nodule on image #18 is unchanged from previous. These are of low suspicion. The lung bases are otherwise clear noting minimal dependent atelectasis. There is a tiny hiatal hernia. Liver: The contrast-enhanced liver is enlarged, measuring 20.3 cm in length. The liver demonstrates diffusely diminished attenuation consistent with hepatic steatosis. Fatty sparing is seen adjacent to the gallbladder fossa. There is no intrahepatic biliary ductal dilatation. The hepatic veins and portal veins are patent. Gallbladder: Unremarkable. Spleen: Normal in size and attenuation. Pancreas: Unremarkable. Adrenal glands: Unremarkable. Kidneys: The contrast enhanced kidneys are normal in size and without hydronephrosis. The kidneys enhance symmetrically. Abdominal vasculature: The abdominal aorta is normal in course and caliber noting moderate and age advanced atherosclerotic calcification. Bowel: There are postoperative changes from sigmoid colon resection with colocolonic anastomosis. No bowel obstruction is identified. Mild colonic fecal retention is observed. The appendix is not identified and postoperative changes suggest previous appendectomy. Peritoneum: There is no intraperitoneal free air or abdominal ascites. Lymphadenopathy: A prominent retrocrural lymph node on image #54 measures 10 mm short axis. This is unchanged from 05/05/2016. Pelvic viscera: The bladder is mildly distended but otherwise normal in appearance. The uterus is surgically absent. No adnexal lesion is seen. Skeletal structures: No lytic or blastic lesions are seen. There are bilateral pars defects at L5. No anterolisthesis is seen at L5-S1. IMPRESSION: 1. There are no acute infectious or inflammatory findings in the abdomen or pelvis. 2. Hepatomegaly and hepatic steatosis. 3. There is moderate and age advanced atherosclerotic calcification of the abdominal aorta. 4. There are postoperative changes from sigmoid colon resection with colocolonic anastomosis. No bowel obstruction is identified. 5. Prominent retrocrural lymph nodes are similar to previous and of indeterminant significance. 6. Additional findings as above. Electronically signed by: Rudi Burrell M.D. 12/28/2016 7:39 AM Dictated Date/Time: 12/28/2016 7:33 AM
== END 2016-12-28 01:32 | disposition home or self-care (01) ==
LOC: C.EDB 21:19 → C.EDC 12-28 01:32
DX: R10.10 Upper abdominal pain, unspecified (principal); J45.909 Unspecified asthma, uncomplicated; J44.9 Chronic obstructive pulmonary disease, unspecified; M79.7 Fibromyalgia; R16.1 Splenomegaly, not elsewhere classified; M54.5 Low back pain; G89.29 Other chronic pain; F17.210 Nicotine dependence, cigarettes, uncomplicated; Z82.49 Family history of ischemic heart disease and other diseases of the circulatory system; Z79.899 Other long term (current) drug therapy

== ENCOUNTER 2017-01-19 23:26 | Emergency (ER) | payer OTHER ==
[~2017-01-19] VITALS: Ht 147.3 cm; Wt 74.5 kg
[~2017-01-19 23:26] MED LIST changes: -ALBINSX INH; -ALBUAER INH; +BUPR-79 PO; +IPRASOL4 INH; +MOME200A INH; +PREG1CAP28 PO; +TRAZ50TA35 PO; +VNTHFA/IN INH
[2017-01-19 23:33] VITALS: TEMP 36.6; Ht 147.3 cm; Wt 74.5 kg
[2017-01-20] MEDS ORDERED: PRED50TA PO (00:05)
[2017-01-20] MEDS ORDERED: AMOX250C3 PO (00:06)
[2017-01-20] MEDS ORDERED: MoRPHine SULFATE 4 MG/ML 1 ML CARP\\VIAL IV STA (00:11)
[2017-01-20] MEDS ORDERED: SODIUM CHLORIDE 0.9% 1000ML 1,000 ML IV STA (00:11)
[2017-01-20] MEDS ORDERED: ONDANSETRON INJ 2 MG/ML 2 ML VIAL IV STA (00:11)
[2017-01-20] MEDS ORDERED: SODIUM CHLORIDE 0.9% 500ML 500 ML IV STA (00:11)
[2017-01-20] MEDS ORDERED: AZIT250T PO (00:14)
--- NOTE | 2017-01-20 00:20 | EMERGENCY ROOM VISIT NOTE ---
History Report prepared by Angel: Abraham Hong Under the Supervision of: Dr. Vicki Vargas M.D. First contact with patient: 23:58 Chief Complaint: ABDOMINAL PAIN Stated Complaint: PAIN IN ABDOMEN, MUSCLE SPASMS IN LOWER BACK Nursing Triage Summary: pt states she got generalized abd pain with concentration in upper abd quads since approx 8pm. pt states she had previously eaten a salad and "I ate a burger this morning and my daughter think I have celiac like she does." pt denies vomiting, states she does have nausea. reports regular BM today. denies new urinary problems. 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 pt alert and oriented x4. breathing WNL. abd rounded, tender to the touch. bowel sounds WNL. History of Present Illness The patient is a 47 year old female who presents to the Emergency Room with complaints of persistent diffuse abdominal pain since approximately 1999 ton. The pain is rated 81/0 in severity. The patient denies vomiting. She had a bowel movement shortly after eating dinner which was normal and did not contain blood. The patient had a salad for dinner, containing vegetables and cheese and not containing chicken. She used [employer] dressing. She ate a burger from [employer] earlier in the day. The patient last vomited several weeks ago. She has not had diarrhea. The patient still has her gallbladder. The patient does not have history of pancreatitis. She drinks alcohol about once per week and does not typically binge drink. She smokes one pack of cigarettes per day. 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 The patient was started on Azithromycin two days ago for cough. 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 Source of History: patient Onset: 1999 Position: abdomen Symptom Intensity: 03/08 Timing: other (persistent) Associated Symptoms: No vomiting, No melena, No hematochezia, No diarrhea Review of Systems See HPI for pertinent positives & negatives. A total of 10 systems reviewed and were otherwise negative. Past Medical & Surgical Medical Problems: (1) Abdominal pain (2) Acute exacerbation of chronic low back pain (3) Asthma, Unspecified (4) Back pain (5) Back pain (6) Back pain (7) Back strain (8) Back strain (9) Chronic Obstructive Pulmonary Disease, Unspecified (10) Fibromyalgia (11) Fibromyalgia (12) Fracture of metatarsal bone (13) Generalized pain (14) Lumbago (15) Lupus anticoagulant disorder (16) Musculoskeletal chest pain (17) Nodule of chest wall (18) Splenomegaly (19) Swelling of both lower extremities (20) Thoracic back pain (21) Upper abdominal pain Family History Hypertension Stroke Social History Smoking Status: Current Every Day Smoker Alcohol Use: occasionally Marital Status: single Housing Status: other Occupation Status: employed Current/Historical Medications Scheduled Acetaminophen (Tylenol), 1,000 MG PO Q6H Azithromycin (Zithromax), 250 MG PO DAILY Bupropion (Wellbutrin Sr), 150 MG PO BID Hydroxychloroquine Sulfate (Plaquenil), 200 MG PO DAILY Prednisone (Prednisone), 10 MG PO DIRECTED Pregabalin (Lyrica), 75 MG PO BID Trazodone Hcl (Trazodone), 100 MG PO HS Scheduled PRN Albuterol Hfa (Ventolin Hfa), 2 PUFFS INH Q4H PRN for Wheezing Ipratropium-Albuterol (Duoneb), 1 TREATMENT INH QID PRN for SOB/Wheezing Mometasone Furoate-Formoterol (Dulera 200/5 Mcg), 2 PUFFS INH BID PRN for SOB/ Wheezing Allergies Coded Allergies: Diphenhydramine (Verified Allergy, Unknown, JITTERY, 01/20/17) Milnacipran (Verified Allergy, Unknown, VOMITS, 01/20/17) Physical Exam Vital Signs Date Time Temp Pulse Resp B/P (MAP) Pulse Ox O2 Delivery O2 Flow Rate FiO2 01/20/17 02:01 76 18 168/97 95 01/20/17 01:30 82 18 140/91 94 Room Air 01/20/17 01:15 85 01/20/17 00:29 87 22 127/81 96 Room Air 01/19/17 23:33 36.6 91 18 139/72 96 Room Air Physical Exam Vital signs reviewed. General: Well-appearing female, in no significant distress. HEENT: No scleral icterus, PERRLA, neck supple. Atraumatic. Several missing teeth. Mucous membranes are moist. Cardiovascular: Regular rate and rhythm, no extra sounds. Pulmonary: Clear to auscultation bilaterally, normal work of breathing. Abdomen: Obese, tender to the right upper quadrant and epigastric area, positive tympany, moderate distention, large vertical incision to the abdomen. Musculoskeletal: Atraumatic, no peripheral edema. Neurologic: Patient awake alert and oriented x 3, full strength in all 4 extremities. Cranial nerves 2 through 12 grossly intact. Skin: Warm, dry, no rash Medical Decision & Procedures ER Provider Diagnostic Interpretation: X-ray results as stated below per interpretation by me and the radiologist: Radiology results as stated below per my review and radiologist interpretation: CT SCAN OF THE ABDOMEN AND PELVIS WITH IV CONTRAST CLINICAL HISTORY: Generalized abdominal pain. Bloating. COMPARISON STUDY: Abdominal CT dated 12/28/2016 and 05/05/2016. Abdominal ultrasound and abdominal radiographs dated 01/20/2017. TECHNIQUE: Following the IV administration of 93 cc of Optiray 320, CT scan of the abdomen and pelvis is performed from the lung bases to the proximal femora. Images are reviewed in the axial, sagittal, and coronal planes. IV contrast was administered without complication. Automated dose control exposure was utilized. CT DOSE: 447.53 mGy.cm FINDINGS: Lung bases: The heart is normal in size and without pericardial effusion. A 3 mm right lower lobe nodule on image #2 is unchanged from previous. These are of low suspicion. The lung bases are otherwise clear noting minimal dependent atelectasis. There is a tiny hiatal hernia. Liver: The contrast-enhanced liver is enlarged, measuring 21.6 cm in length. The liver demonstrates diffusely diminished attenuation consistent with hepatic steatosis. Fatty sparing is seen adjacent to the gallbladder fossa. There is no intrahepatic biliary ductal dilatation. The hepatic veins and portal veins are patent. Gallbladder: Partially contracted and unremarkable. Spleen: The spleen is mildly enlarged measuring 13.6 cm in length. Pancreas: Unremarkable. Adrenal glands: Unremarkable. Kidneys: The contrast enhanced kidneys are normal in size and without hydronephrosis. The kidneys enhance symmetrically. Abdominal vasculature: The abdominal aorta is normal in course and caliber noting moderate and age advanced atherosclerotic calcification. Bowel: There are postoperative changes from sigmoid colon resection with colocolonic anastomosis. There is no convincing evidence of bowel obstruction. There is mild nonspecific distention of the right colon. No colonic wall thickening is identified and there is no pericolonic inflammation. There are mildly distended loops of fluid-filled small bowel in the left upper quadrant. These measure up to 3 cm as seen on image #176. Mild to moderate colonic fecal retention is observed. The appendix is not identified and postoperative change suggests previous appendectomy. Peritoneum: There is no intraperitoneal free air or abdominal ascites. Lymphadenopathy: A prominent retrocrural lymph node on image #26 measures 10 mm short axis. This is unchanged from 05/05/2016. Pelvic viscera: The bladder is mildly distended but otherwise normal in appearance. The uterus is surgically absent. No adnexal lesion is seen. Skeletal structures: No lytic or blastic lesions are seen. There are bilateral pars defects at L5. No anterolisthesis is seen at L5-S1. IMPRESSION: 1. There are postoperative changes from sigmoid colon resection with cortical anastomosis. No bowel obstruction is identified. 2. There are mildly distended and fluid-filled loops of small bowel in the left upper quadrant. There is no associated bowel wall thickening and this may represent a mild nonspecific enteritis. Clinical correlation will be required. There is also mild nonspecific distention of the right colon. 3. Hepatomegaly and hepatic steatosis. 4. There is moderate and age advanced atherosclerotic calcification of the abdominal aorta. 5. Splenomegaly. 5. Prominent retrocrural lymph nodes are similar to previous and of indeterminant significance. 6. Additional findings as above. Electronically signed by: Rudi Burrell M.D. 01/20/2017 1:36 AM Dictated Date/Time: 01/20/2017 1:27 AM PA CHEST WITH ABDOMINAL SERIES CLINICAL HISTORY: Generalized abdominal pain. Bloating. FINDINGS: A PA chest radiograph is compared to study dated 12/27/2016. The cardiomediastinal silhouette is unremarkable. The lungs and pleural spaces are clear. No pneumothorax is seen. The bony thorax is grossly intact. Supine and erect abdominal radiograph are correlated with abdominal CT dated 12/28/2016. There is a nonobstructed abdominal bowel gas pattern. No evidence of intraperitoneal free air is seen. There is mild and nonspecific gaseous distention of the colon. Suture material projects over the pelvis. There are numerous surgical clips in the pelvis. The lumbosacral spine and bony pelvis appear intact. IMPRESSION: 1. No active disease in the chest. 2. Nonobstructed abdominal bowel gas pattern. Electronically signed by: Rudi Burrell M.D. 01/20/2017 1:27 AM Dictated Date/Time: 01/20/2017 1:23 AM ULTRASOUND RIGHT UPPER QUADRANT ABDOMEN CLINICAL HISTORY: Right upper quadrant abdominal pain. COMPARISON STUDY: Abdominal CT dated 12/28/2016. TECHNIQUE: Real-time, grayscale, and color flow sonography of the right upper quadrant of the abdomen was performed. Images are reviewed in the transverse and longitudinal planes. FINDINGS: Liver: The liver is enlarged, measuring over 22 cm in length. The liver demonstrates heterogeneously increased echotexture consistent with hepatic steatosis. There is no intrahepatic biliary ductal dilatation. The main portal vein is patent. Gallbladder: The gallbladder is contracted and normal in appearance. No gallstones are identified. There is no gallbladder wall thickening or pericholecystic fluid. A sonographic Stanley's sign is reportedly absent. The common bile duct measures up to 0.3 cm in diameter. Pancreas: Visualized portions of the pancreatic head are normal in appearance. The majority of the pancreas was not well visualized. Right kidney: Survey images of the right kidney demonstrate normal size and echotexture. There is no hydronephrosis. Ascites: None. IMPRESSION: 1. No acute sonographic abnormality is identified in the right upper quadrant. No gallstones are seen. 2. Hepatomegaly and hepatic steatosis. Electronically signed by: Rudi Burrell M.D. 01/20/2017 12:54 AM Dictated Date/Time: 01/20/2017 12:51 AM Laboratory Results 01/20/17 00:21 Red Blood Count 3.88, Mean Corpuscular Volume 97.9, Mean Corpuscular Hemoglobin 33.2, Mean Corpuscular Hemoglobin Concent 33.9, Mean Platelet Volume 11.4, Neutrophils (%) (Auto) 61.0, Lymphocytes (%) (Auto) 32.5, Monocytes (%) (Auto) 5.4, Eosinophils (%) (Auto) 0.5, Basophils (%) (Auto) 0.3, Neutrophils # (Auto) 4.74, Lymphocytes # (Auto) 2.52, Monocytes # (Auto) 0.42, Eosinophils # (Auto) 0.04, Basophils # (Auto) 0.02 01/20/17 00:21 Test 01/20/17 00:21 White Blood Count 7.76 K/uL (4.8-10.8) Red Blood Count 3.88 M/uL (4.2-5.4) Hemoglobin 12.9 g/dL (12.0-16.0) Hematocrit 38.0 % (37-47) Mean Corpuscular Volume 97.9 fL (80-100) Mean Corpuscular Hemoglobin 33.2 pg (25-34) Mean Corpuscular Hemoglobin Concent 33.9 g/dl (32-36) Platelet Count 143 K/uL (130-400) Mean Platelet Volume 11.4 fL (7.4-10.4) Neutrophils (%) (Auto) 61.0 % Lymphocytes (%) (Auto) 32.5 % Monocytes (%) (Auto) 5.4 % Eosinophils (%) (Auto) 0.5 % Basophils (%) (Auto) 0.3 % Neutrophils # (Auto) 4.74 K/uL (1.4-6.5) Lymphocytes # (Auto) 2.52 K/uL (1.2-3.4) Monocytes # (Auto) 0.42 K/uL (0.11-0.59) Eosinophils # (Auto) 0.04 K/uL (0-0.5) Basophils # (Auto) 0.02 K/uL (0-0.2) RDW Standard Deviation 47.5 fL (36.4-46.3) RDW Coefficient of Variation 13.4 % (11.5-14.5) Immature Granulocyte % (Auto) 0.3 % Immature Granulocyte # (Auto) 0.02 K/uL (0.00-0.02) Urine Color YELLOW Urine Appearance CLEAR (CLEAR) Urine pH 5.5 (4.5-7.5) Urine Specific [place] 1.012 (1.000-1.030) Urine Protein NEG (NEG) Urine Glucose (UA) NEG (NEG) Urine Ketones NEG (NEG) Urine Occult Blood NEG (NEG) Urine Nitrite NEG (NEG) Urine Bilirubin NEG (NEG) Urine Urobilinogen NEG (NEG) Urine Leukocyte Esterase NEG (NEG) Anion Gap 10.0 mmol/L (3-11) Est Creatinine Clear Calc Drug Dose 62.1 ml/min Estimated GFR () 82.1 Estimated GFR (Non- 70.8 BUN/Creatinine Ratio 16.2 (10-20) Calcium Level 9.2 mg/dl (8.5-10.1) Magnesium Level 2.2 mg/dl (1.8-2.4) Total Bilirubin < 0.1 mg/dl (0.2-1) Direct Bilirubin < 0.1 mg/dl (0-0.2) Aspartate Amino Transf (AST/SGOT) 9 U/L (15-37) Alanine Aminotransferase (ALT/SGPT) 24 U/L (12-78) Alkaline Phosphatase 77 U/L (45-117) Total Protein 6.7 gm/dl (6.4-8.2) Albumin 3.4 gm/dl (3.4-5.0) Lipase 238 U/L (73-393) Laboratory results per my review. Medications Administered Medications (Trade) Dose Ordered Sig/Lindsay Route Start Time Stop Time Status Last Admin Dose Admin Sodium Chloride 500 ml @ 999 mls/hr Q31M STAT IV 01/20/17 00:11 01/20/17 00:41 DC 01/20/17 00:29 999 MLS/HR Morphine Sulfate (MoRPHine SULFATE INJ) 4 mg NOW STAT IV 01/20/17 00:11 01/20/17 00:14 DC 01/20/17 00:28 4 MG Ondansetron HCl (Zofran Inj) 4 mg NOW STAT IV 01/20/17 00:11 01/20/17 00:14 DC 01/20/17 00:25 4 MG Ondansetron HCl (ZOFRAN ODT 4MG Home Pack) 1 homepack UD ONCE PO 01/20/17 01:45 01/20/17 01:46 DC 01/20/17 01:59 1 HOMEPACK ED Course 0010: Past medical records reviewed. The patient was evaluated in room A12b. A complete history and physical examination was performed. 0011: Zofran 4 mg IV, Morphine Sulfate 4 mg IV, NSS 1000 ml @ 125 mls/hr, NSS 500 ml @ 999 mls/hr. 0145: Zofran Odt 4 mg PO homepack. 0148: Reassessed the patient. Discussed the workup with her. She understands and agrees with the discharge instructions. The patient is ready for discharge. Medical Decision Differential diagnosis: Etiologies such as appendicitis, diverticulitis, PUD, biliary pathology, UTI, pancreatitis, obstruction, mesenteric ischemia, aortic pathology, infections, inflammatory bowel disease, renal colic, as well as others were entertained. Medication Reconciliation: I attest that I have personally reviewed the patient' s current medication list. Blood Pressure Screening: Patient was found to have normal blood pressure on screening and does not require follow-up. This patient was evaluated and appeared to be in no significant distress. IV access was obtained and laboratory work was drawn. Patient was placed on the cardiac catheterization technologist. She was hydrated with normal saline solution, given IV Zofran and morphine. An ultrasound of the right upper quadrant was performed and is largely negative. Abdominal x-ray series reveals several dilated loops of bowel. Follow-up CAT scan reveals no evidence of significant SBO. There is no free air. There is mild enteritis and fecal retention. Patient was advised of the findings. She will drink plenty of clear fluids, use Zofran ODT as needed. She will follow-up with her physician this week for reevaluation and return to the ER for worsening of symptoms or any medical concerns. Impression Primary Impression: Enteritis Scribe Attestation The scribe's documentation has been prepared under my direction and personally reviewed by me in its entirety. I confirm that the note above accurately reflects all work, treatment, procedures, and medical decision making performed by me. Departure Information Dispostion Home / Self-Care Referrals Alva Burns D.O. (PCP) Forms Call Back Authorization, HOME CARE DOCUMENTATION FORM, IMPORTANT VISIT INFORMATION Patient Instructions My [facility] Additional Instructions Diagnosis: Enteritis Clear fluids for 24 hours. Advance diet slowly as tolerated. Zofran 4 mg ODT every 6 hours as needed for nausea. Follow up with your doctor this week for reevaluation. Return to the ED for worsening of symptoms or any medical concerns.
[2017-01-20 00:33] LABS: URINE APPEARANCE CLEAR (CLEAR); URINE BILIRUBIN NEG (NEG); URINE COLOR YELLOW; URINE NITRITE NEG (NEG); URINE PH 5.5 (4.5-7.5); URINE SPECIFIC GRAVITY 1.012 (1.000-1.030); UROBILINOGEN NEG (NEG); ZZUR CULT IF INDIC CLEAN CATCH NO
[2017-01-20 00:34] LABS: MEAN CELL VOLUME 97.9 fL (80-100); MEAN CORPUSCULAR HEMOGLOBIN 33.2 pg (25-34); MEAN CORPUSCULAR HGB CONC 33.9 g/dl (32-36); MEAN PLATELET VOLUME 11.4 fL (7.4-10.4); PLATELET COUNT 143 K/uL (130-400); RED BLOOD COUNT 3.88 M/uL (4.2-5.4); WHITE BLOOD COUNT 7.76 K/uL (4.8-10.8)
[2017-01-20 00:38] LABS: MANUAL MICROSCOPIC REQUIRED? NO; REVIEW REQ? NO
--- NOTE | 2017-01-20 00:55 | DIAGNOSTIC IMAGING REPORT ---
ULTRASOUND RIGHT UPPER QUADRANT ABDOMEN CLINICAL HISTORY: Right upper quadrant abdominal pain. COMPARISON STUDY: Abdominal CT dated 12/28/2016. TECHNIQUE: Real-time, grayscale, and color flow sonography of the right upper quadrant of the abdomen was performed. Images are reviewed in the transverse and longitudinal planes. FINDINGS: Liver: The liver is enlarged, measuring over 22 cm in length. The liver demonstrates heterogeneously increased echotexture consistent with hepatic steatosis. There is no intrahepatic biliary ductal dilatation. The main portal vein is patent. Gallbladder: The gallbladder is contracted and normal in appearance. No gallstones are identified. There is no gallbladder wall thickening or pericholecystic fluid. A sonographic Stanley's sign is reportedly absent. The common bile duct measures up to 0.3 cm in diameter. Pancreas: Visualized portions of the pancreatic head are normal in appearance. The majority of the pancreas was not well visualized. Right kidney: Survey images of the right kidney demonstrate normal size and echotexture. There is no hydronephrosis. Ascites: None. IMPRESSION: 1. No acute sonographic abnormality is identified in the right upper quadrant. No gallstones are seen. 2. Hepatomegaly and hepatic steatosis. Electronically signed by: Rudi Burrell M.D. 01/20/2017 12:54 AM Dictated Date/Time: 01/20/2017 12:51 AM
[2017-01-20 00:59] LABS: ALT/SGPT 24 U/L (12-78); BLOOD UREA NITROGEN 15 mg/dl (7-18); BUN/CREATININE RATIO 16.2 (10-20); CALCIUM 9.2 mg/dl (8.5-10.1); CARBON DIOXIDE 25 mmol/L (21-32); CHLORIDE 108 mmol/L (98-107); CREATININE 0.95 mg/dl (0.60-1.20); GLUCOSE 105 mg/dl (70-99); MAGNESIUM 2.2 mg/dl (1.8-2.4); POTASSIUM 3.6 mmol/L (3.5-5.1); SODIUM 143 mmol/L (136-145)
[2017-01-20 01:01] LABS: ALKALINE PHOSPHATASE 77 U/L (45-117); AST/SGOT 9 U/L (15-37)
[2017-01-20 01:04] LABS: BASO % 0.3 %; BASO ABS # 0.02 K/uL (0-0.2); COMPLETE YES; EOS % 0.5 %; IG% 0.3 %; LYMPH % 32.5 %; LYMPH ABS # 2.52 K/uL (1.2-3.4); MONO % 5.4 %
[2017-01-20] MEDS ORDERED: OPTIRAY 320 IV PRN (01:15)
--- NOTE | 2017-01-20 01:28 | DIAGNOSTIC IMAGING REPORT ---
PA CHEST WITH ABDOMINAL SERIES CLINICAL HISTORY: Generalized abdominal pain. Bloating. FINDINGS: A PA chest radiograph is compared to study dated 12/27/2016. The cardiomediastinal silhouette is unremarkable. The lungs and pleural spaces are clear. No pneumothorax is seen. The bony thorax is grossly intact. Supine and erect abdominal radiograph are correlated with abdominal CT dated 12/28/2016. There is a nonobstructed abdominal bowel gas pattern. No evidence of intraperitoneal free air is seen. There is mild and nonspecific gaseous distention of the colon. Suture material projects over the pelvis. There are numerous surgical clips in the pelvis. The lumbosacral spine and bony pelvis appear intact. IMPRESSION: 1. No active disease in the chest. 2. Nonobstructed abdominal bowel gas pattern. Electronically signed by: Rudi Burrell M.D. 01/20/2017 1:27 AM Dictated Date/Time: 01/20/2017 1:23 AM
--- NOTE | 2017-01-20 01:38 | DIAGNOSTIC IMAGING REPORT ---
CT SCAN OF THE ABDOMEN AND PELVIS WITH IV CONTRAST CLINICAL HISTORY: Generalized abdominal pain. Bloating. COMPARISON STUDY: Abdominal CT dated 12/28/2016 and 05/05/2016. Abdominal ultrasound and abdominal radiographs dated 01/20/2017. TECHNIQUE: Following the IV administration of 93 cc of Optiray 320, CT scan of the abdomen and pelvis is performed from the lung bases to the proximal femora. Images are reviewed in the axial, sagittal, and coronal planes. IV contrast was administered without complication. Automated dose control exposure was utilized. CT DOSE: 447.53 mGy.cm FINDINGS: Lung bases: The heart is normal in size and without pericardial effusion. A 3 mm right lower lobe nodule on image #2 is unchanged from previous. These are of low suspicion. The lung bases are otherwise clear noting minimal dependent atelectasis. There is a tiny hiatal hernia. Liver: The contrast-enhanced liver is enlarged, measuring 21.6 cm in length. The liver demonstrates diffusely diminished attenuation consistent with hepatic steatosis. Fatty sparing is seen adjacent to the gallbladder fossa. There is no intrahepatic biliary ductal dilatation. The hepatic veins and portal veins are patent. Gallbladder: Partially contracted and unremarkable. Spleen: The spleen is mildly enlarged measuring 13.6 cm in length. Pancreas: Unremarkable. Adrenal glands: Unremarkable. Kidneys: The contrast enhanced kidneys are normal in size and without hydronephrosis. The kidneys enhance symmetrically. Abdominal vasculature: The abdominal aorta is normal in course and caliber noting moderate and age advanced atherosclerotic calcification. Bowel: There are postoperative changes from sigmoid colon resection with colocolonic anastomosis. There is no convincing evidence of bowel obstruction. There is mild nonspecific distention of the right colon. No colonic wall thickening is identified and there is no pericolonic inflammation. There are mildly distended loops of fluid-filled small bowel in the left upper quadrant. These measure up to 3 cm as seen on image #176. Mild to moderate colonic fecal retention is observed. The appendix is not identified and postoperative change suggests previous appendectomy. Peritoneum: There is no intraperitoneal free air or abdominal ascites. Lymphadenopathy: A prominent retrocrural lymph node on image #26 measures 10 mm short axis. This is unchanged from 05/05/2016. Pelvic viscera: The bladder is mildly distended but otherwise normal in appearance. The uterus is surgically absent. No adnexal lesion is seen. Skeletal structures: No lytic or blastic lesions are seen. There are bilateral pars defects at L5. No anterolisthesis is seen at L5-S1. IMPRESSION: 1. There are postoperative changes from sigmoid colon resection with cortical anastomosis. No bowel obstruction is identified. 2. There are mildly distended and fluid-filled loops of small bowel in the left upper quadrant. There is no associated bowel wall thickening and this may represent a mild nonspecific enteritis. Clinical correlation will be required. There is also mild nonspecific distention of the right colon. 3. Hepatomegaly and hepatic steatosis. 4. There is moderate and age advanced atherosclerotic calcification of the abdominal aorta. 5. Splenomegaly. 5. Prominent retrocrural lymph nodes are similar to previous and of indeterminant significance. 6. Additional findings as above. Electronically signed by: Rudi Burrell M.D. 01/20/2017 1:36 AM Dictated Date/Time: 01/20/2017 1:27 AM
[2017-01-20] MEDS ORDERED: ONDANSETRON HOME PACK 4MG OD TAB PO ONE (01:45)
[2017-01-20 02:01] VITALS: BP 168/97; PULSE 76; O2SAT 95
== END 2017-01-20 02:01 | disposition home or self-care (01) ==
LOC: C.EDB 23:27 → C.EDA 01-20 02:01
DX: K52.9 Noninfective gastroenteritis and colitis, unspecified (principal); Z90.710 Acquired absence of both cervix and uterus; F17.210 Nicotine dependence, cigarettes, uncomplicated; Z90.49 Acquired absence of other specified parts of digestive tract; Z85.42 Personal history of malignant neoplasm of other parts of uterus; J45.909 Unspecified asthma, uncomplicated; J44.9 Chronic obstructive pulmonary disease, unspecified; M79.7 Fibromyalgia; D68.62 Lupus anticoagulant syndrome; Z82.49 Family history of ischemic heart disease and other diseases of the circulatory system; Z82.3 Family history of stroke; Z79.899 Other long term (current) drug therapy; E66.9 Obesity, unspecified; Z68.34 Body mass index [BMI] 34.0-34.9, adult

== ENCOUNTER 2017-04-02 18:45 | Emergency (ER) | payer OTHER ==
[~2017-04-02] VITALS: Ht 147.3 cm; Wt 74.9 kg
[~2017-04-02 18:45] MED LIST changes: +AZIT250T PO; -CYCL10TA6 PO; -IBUP-1050 PO; +PRED50TA PO
[2017-04-02 18:48] VITALS: TEMP 36.8; Ht 147.3 cm; Wt 74.9 kg
[2017-04-02] MEDS ORDERED: SODIUM CHLORIDE 0.9% 1000ML 1,000 ML IV STA (19:03)
[2017-04-02] MEDS ORDERED: PREGABALIN 75 MG CAP PO STA (19:03)
--- NOTE | 2017-04-02 19:09 | EMERGENCY ROOM VISIT NOTE ---
History Report prepared by Scribe: Josefina Cooley Under the Supervision of: Dr. Jero Francisco M.D. First contact with patient: 18:57 Chief Complaint: PAIN (GENERALIZED) Stated Complaint: LEG PAIN, STOMACH PAIN, BACK PAIN History of Present Illness The patient is a 47 year old female who presents to the Emergency Room with complaints of worsening back and abdominal pain for the past 3 months. She rates her current discomfort as an 8/10 in severity. She has a history of fibromyalgia and was seen here in the ED in December for the same symptoms. She takes daily Lyrica but admits she missed her medication doses this morning and yesterday because she "forgets to take it". This afternoon, she developed bilateral leg pain and back pain, so she came to the ED once she got off work. She works as a [employer] and states her job requires a lot of lifting, bending and physical exertion. She describes her leg pain as feeling "achey" in nature. The patient states she has a history of abdominal pain and is scheduled to undergo an endoscopy next Sunday. She underwent a colonoscopy a few months ago and states it came back unremarkable. The patient is a current smoker and complains of a cough with while colored sputum. She admits to some wheezing with breathing and minor shortness of breath. A nebulizer treatment this morning only provided minimal relief. The patient thought she may have been febrile yesterday, but she did not check her temperature. She states she has also had diarrhea all day today. She denies any nausea or vomiting and has been able to keep down food and liquids. She denies any recent dysuria. Source of History: patient Onset: 3 months [employer] Position: abdomen, back Symptom Intensity: 8/10 Timing: worsening Associated Symptoms: + cough, + SOB, + back pain, + diarrhea, No fevers, No nausea, No vomiting, No urinary symptoms Review of Systems See HPI for pertinent positives and negatives. A total of ten systems were reviewed and were otherwise negative. Past Medical & Surgical Medical Problems: (1) Abdominal pain (2) Acute exacerbation of chronic low back pain (3) Asthma, Unspecified (4) Back pain (5) Back pain (6) Back pain (7) Back strain (8) Back strain (9) Chronic Obstructive Pulmonary Disease, Unspecified (10) Fibromyalgia (11) Fibromyalgia (12) Fracture of metatarsal bone (13) Generalized pain (14) Lumbago (15) Lupus anticoagulant disorder (16) Musculoskeletal chest pain (17) Nodule of chest wall (18) Splenomegaly (19) Swelling of both lower extremities (20) Thoracic back pain (21) Upper abdominal pain Family History Hypertension Stroke Social History Smoking Status: Current Every Day Smoker Alcohol Use: occasionally Marital Status: single, Housing Status: lives with family, other Occupation Status: employed Current/Historical Medications Scheduled Acetaminophen (Tylenol), 1,000 MG PO Q6H Bupropion (Wellbutrin Sr), 150 MG PO BID Hydroxychloroquine Sulfate (Plaquenil), 200 MG PO DAILY Pregabalin (Lyrica), 75 MG PO BID Trazodone Hcl (Trazodone), 100 MG PO HS Scheduled PRN Albuterol Hfa (Ventolin Hfa), 2 PUFFS INH Q4H PRN for Wheezing Ipratropium-Albuterol (Duoneb), 1 TREATMENT INH QID PRN for SOB/Wheezing Mometasone Furoate-Formoterol (Dulera 200/5 Mcg), 2 PUFFS INH BID PRN for SOB/ Wheezing Allergies Coded Allergies: Diphenhydramine (Verified Allergy, Unknown, JITTERY, 04/02/17) Milnacipran (Verified Allergy, Unknown, VOMITS, 04/02/17) Physical Exam Vital Signs Date Time Temp Pulse Resp B/P (MAP) Pulse Ox O2 Delivery O2 Flow Rate FiO2 04/02/17 21:59 92 18 131/74 98 04/02/17 21:08 102 18 146/81 99 Room Air 04/02/17 19:46 89 22 143/100 04/02/17 19:38 82 18 96 Room Air 04/02/17 18:48 36.8 Room Air Physical Exam GENERAL: Awake, alert, well-appearing, in no distress HENT: Normocephalic, atraumatic. Oropharynx unremarkable. Dry mucous membranes. EYES: Normal conjunctiva. Sclera non-icteric. NECK: Supple. No nuchal rigidity. FROM. No JVD. RESPIRATORY: Scattered wheezes throughout, diminished at the bases. CARDIAC: Regular rate, normal rhythm. Extremities warm and well perfused. Pulses equal. ABDOMEN: Soft, non-distended. Mild epigastric tenderness to palpation. No peritoneal signs. No rebound or guarding. No masses. RECTAL: Deferred. MUSCULOSKELETAL: Diffuse paraspinal pain at the thoracic and lumbar areas. No midline tenderness. Chest examination reveals no tenderness. No joint edema. LOWER EXTREMITIES: Calves are equal size bilaterally and non-tender. No edema. No discoloration. No posterior pain in the calves. Negative straight leg raise, mild tenderness to palpation of anterior thigh as well as knees and anterior lower legs bilaterally. NEURO: Normal sensorium. No sensory or motor deficits noted. SKIN: No rash or jaundice noted. Medical Decision & Procedures ER Provider Diagnostic Interpretation: Radiology results as stated below per my review and radiologist interpretation: CHEST ONE VIEW PORTABLE HISTORY: 47 years-old Female SOB acute shortness of breath. COMPARISON: Acute abdominal series radiograph and CT abdomen and pelvis 01/20/2017 TECHNIQUE: Portable upright AP view of the chest FINDINGS: Cardiomediastinal and hilar silhouettes are within normal limits. No pneumothorax, pleural effusion or focal airspace consolidation. No overt pulmonary edema. The bones are grossly intact. IMPRESSION: No acute cardiopulmonary process. The above report was generated using voice recognition software. It may contain grammatical, syntax or spelling errors. Electronically signed by: Nolan Caruso M.D. 04/02/2017 8:06 PM Laboratory Results 04/02/17 19:20 Red Blood Count 4.08, Mean Corpuscular Volume 95.1, Mean Corpuscular Hemoglobin 33.1, Mean Corpuscular Hemoglobin Concent 34.8, Mean Platelet Volume 11.4, Neutrophils (%) (Auto) 60.5, Lymphocytes (%) (Auto) 30.2, Monocytes (%) (Auto) 5.4, Eosinophils (%) (Auto) 3.3, Basophils (%) (Auto) 0.3, Neutrophils # (Auto) 4.04, Lymphocytes # (Auto) 2.02, Monocytes # (Auto) 0.36, Eosinophils # (Auto) 0.22, Basophils # (Auto) 0.02 04/02/17 19:20 Test 04/02/17 19:20 04/02/17 19:35 White Blood Count 6.68 K/uL (4.8-10.8) Red Blood Count 4.08 M/uL (4.2-5.4) Hemoglobin 13.5 g/dL (12.0-16.0) Hematocrit 38.8 % (37-47) Mean Corpuscular Volume 95.1 fL (80-100) Mean Corpuscular Hemoglobin 33.1 pg (25-34) Mean Corpuscular Hemoglobin Concent 34.8 g/dl (32-36) Platelet Count 135 K/uL (130-400) Mean Platelet Volume 11.4 fL (7.4-10.4) Neutrophils (%) (Auto) 60.5 % Lymphocytes (%) (Auto) 30.2 % Monocytes (%) (Auto) 5.4 % Eosinophils (%) (Auto) 3.3 % Basophils (%) (Auto) 0.3 % Neutrophils # (Auto) 4.04 K/uL (1.4-6.5) Lymphocytes # (Auto) 2.02 K/uL (1.2-3.4) Monocytes # (Auto) 0.36 K/uL (0.11-0.59) Eosinophils # (Auto) 0.22 K/uL (0-0.5) Basophils # (Auto) 0.02 K/uL (0-0.2) RDW Standard Deviation 43.6 fL (36.4-46.3) RDW Coefficient of Variation 12.5 % (11.5-14.5) Immature Granulocyte % (Auto) 0.3 % Immature Granulocyte # (Auto) 0.02 K/uL (0.00-0.02) Anion Gap 5.0 mmol/L (3-11) Est Creatinine Clear Calc Drug Dose 73.1 ml/min Estimated GFR () 99.5 Estimated GFR (Non- 85.9 BUN/Creatinine Ratio 13.0 (10-20) Calcium Level 8.8 mg/dl (8.5-10.1) Total Bilirubin 0.2 mg/dl (0.2-1) Direct Bilirubin < 0.1 mg/dl (0-0.2) Aspartate Amino Transf (AST/SGOT) 15 U/L (15-37) Alanine Aminotransferase (ALT/SGPT) 29 U/L (12-78) Alkaline Phosphatase 82 U/L (45-117) Troponin I < 0.015 ng/ml (0-0.045) Total Protein 6.8 gm/dl (6.4-8.2) Albumin 3.3 gm/dl (3.4-5.0) Lipase 207 U/L (73-393) Urine Color YELLOW Urine Appearance CLEAR (CLEAR) Urine pH 7.5 (4.5-7.5) Urine Specific [place] 1.019 (1.000-1.030) Urine Protein NEG (NEG) Urine Glucose (UA) NEG (NEG) Urine Ketones NEG (NEG) Urine Occult Blood NEG (NEG) Urine Nitrite NEG (NEG) Urine Bilirubin NEG (NEG) Urine Urobilinogen NEG (NEG) Urine Leukocyte Esterase NEG (NEG) Laboratory results reviewed by me Medications Administered Medications (Trade) Dose Ordered Sig/Lindsay Route Start Time Stop Time Status Last Admin Dose Admin Pregabalin (Lyrica Cap) 75 mg NOW STAT PO 04/02/17 19:03 04/02/17 19:11 DC 04/02/17 19:32 75 MG Sodium Chloride 1,000 ml @ 999 mls/hr Q1H1M STAT IV 04/02/17 19:03 04/02/17 20:03 DC 04/02/17 19:33 999 MLS/HR Albuterol/ Ipratropium (Duoneb) 12 ml ONE ONCE INH 04/02/17 19:15 04/02/17 19:16 DC 04/02/17 19:38 12 ML Prednisone (PredniSONE TAB) 60 mg NOW STAT PO 04/02/17 19:03 04/02/17 19:12 DC 04/02/17 19:32 60 MG Azithromycin (Zithromax Tab) 500 mg NOW ONCE PO 04/02/17 19:15 04/02/17 19:16 DC 04/02/17 19:32 500 MG Acetaminophen (Tylenol Tab) 1,000 mg NOW STAT PO 04/02/17 20:30 04/02/17 20:32 DC 04/02/17 20:46 1,000 MG Famotidine (Pepcid 20mg/100 ml) 20 mg ONE STAT IV 04/02/17 20:30 04/02/17 20:32 DC 04/02/17 20:45 20 MG ECG Indication: abdominal pain Rate (beats per minute): 84 Rhythm: normal sinus Findings: Q waves (n V2), no acute ischemic change, other (normal axis) Comparison ECG Date: Q wave in V2 is similar to previous EKG from 12/27/2016 ED Course 1859: The patient was evaluated in room C2. A complete history and physical exam was performed. 1902: Prednisone 60 mg PO, NSS 1000 ml @ 999 mls/hr IV, Lyrica 75 mg PO. 1914: Zithromax 500 mg PO, DuoNeb 12 ml INH. 2024: I reevaluated the patient. She is feeling better breathing rosales. Her back and abdominal pain are unchanged. I discussed following up with her PCP as well as her other results and discharge instructions and she verbalized complete understanding and agreement. 2029: Famotidine 20 mg IV, Acetaminophen 1000 mg PO. 2149: I reevaluated the patient. She is feeling well and resting comfortably. I discussed her results and discharge instructions and she verbalized complete understanding and agreement. Medical Decision I reviewed the patient's past medical history, medications, and the nursing notes as described above. The differential diagnoses considered include viral illness, bronchitis, pneumonia, gastritis, fibromyalgia, musculoskeletal strain , lumbar radiculopathy and UTI. Patient is a 39-year-old woman with a past medical history of COPD, uterine cancer, lupus, chronic abdominal pain as well as fibromyalgia since emergency Department with the complaint of persistent abdominal pain and nausea and diarrhea since being seen in the emergency department December with negative workup but also now with back pain and bilateral leg pain which she says is consistent with her fibromyalgia was much worse today in the setting of having not taken her medications for 2 days and working as a [employer] per history of present illness. The patient is well-appearing in no acute distress. Afebrile stable vital signs. Exam the patient has diffuse paraspinal tenderness in thoracic and lumbar areas without midline tenderness or step-offs. Straight leg raise is negative. Otherwise has diffuse muscular tenderness to palpation bilateral lower extremities. Considering the patient's updated past medical history we' ll check labs today despite normal workup in December including unremarkable CT scan. Otherwise will hydrate and provide a patient's home medications Lyrica. Will provide the patient's azithromycin and prednisone here since she was prescribed this by her PCP on Sunday but has not been able to fill the prescriptions. Labs unremarkable. Chest x-ray negative. Patient feeling improved after nebs. Findings and plan for follow-up d/w patient. Patient agreeable and d/c'd per discharge instructions. Medication Reconcilliation Current Medication List: was personally reviewed by me Blood Pressure Screening Patient's blood pressure: Elevated blood pressure Blood pressure disposition: Elevated BP felt to be situational Impression Primary Impression: Acute bronchitis Scribe Attestation The scribe's documentation has been prepared under my direction and personally reviewed by me in its entirety. I confirm that the note above accurately reflects all work, treatment, procedures, and medical decision making performed by me. Departure Information Dispostion Home / Self-Care Referrals Alva Burns D.O. (PCP) Patient Instructions Bronchitis Acute Dc, COPD Dc, ED Muscle Aching, My [facility] Additional Instructions Please follow up with your primary care physician in the next 1-3 days for reevaluation and follow-up with your endoscopy as scheduled. Your exam, chest x-ray, EKG, lab results did not show signs of an emergent condition at this time. Take your prednisone, azithromycin, Zantac as prescribed by your doctor. Return to the emergency department for worsening symptoms as described in the accompanying instructions.
[2017-04-02] MEDS ORDERED: ALBUT/IPRATROP 3MG/0.5MG NEB 3 ML VIAL INH ONE (19:15)
[2017-04-02] MEDS ORDERED: AZITHROMYCIN 250 MG TAB PO ONE (19:15)
[2017-04-02 19:28] LABS: BASO % 0.3 %; BASO ABS # 0.02 K/uL (0-0.2); COMPLETE YES; EOS % 3.3 %; HEMATOCRIT 38.8 % (37-47); IG% 0.3 %; LYMPH % 30.2 %; LYMPH ABS # 2.02 K/uL (1.2-3.4); MEAN CELL VOLUME 95.1 fL (80-100); MEAN CORPUSCULAR HEMOGLOBIN 33.1 pg (25-34); MEAN CORPUSCULAR HGB CONC 34.8 g/dl (32-36); MEAN PLATELET VOLUME 11.4 fL (7.4-10.4); MONO % 5.4 %; NEUT % 60.5 %; PLATELET COUNT 135 K/uL (130-400); RED BLOOD COUNT 4.08 M/uL (4.2-5.4); WHITE BLOOD COUNT 6.68 K/uL (4.8-10.8)
[2017-04-02 19:38] VITALS: PULSE 82; O2SAT 96
[2017-04-02 19:44] LABS: ALT/SGPT 29 U/L (12-78); BLOOD UREA NITROGEN 11 mg/dl (7-18); CALCIUM 8.8 mg/dl (8.5-10.1); CARBON DIOXIDE 30 mmol/L (21-32); CHLORIDE 106 mmol/L (98-107); CREATININE 0.81 mg/dl (0.60-1.20); GLUCOSE 88 mg/dl (70-99); POTASSIUM 3.9 mmol/L (3.5-5.1); SODIUM 141 mmol/L (136-145)
[2017-04-02 19:49] LABS: ALKALINE PHOSPHATASE 82 U/L (45-117); AST/SGOT 15 U/L (15-37)
[2017-04-02 19:51] LABS: URINE APPEARANCE CLEAR (CLEAR); URINE BILIRUBIN NEG (NEG); URINE COLOR YELLOW; URINE NITRITE NEG (NEG); URINE PH 7.5 (4.5-7.5); URINE SPECIFIC GRAVITY 1.019 (1.000-1.030); UROBILINOGEN NEG (NEG); ZZUR CULT IF INDIC CLEAN CATCH NO
[2017-04-02 19:52] LABS: MANUAL MICROSCOPIC REQUIRED? NO; REVIEW REQ? NO
--- NOTE | 2017-04-02 20:08 | DIAGNOSTIC IMAGING REPORT ---
CHEST ONE VIEW PORTABLE HISTORY: 47 years-old Female SOB acute shortness of breath. COMPARISON: Acute abdominal series radiograph and CT abdomen and pelvis 01/20/2017 TECHNIQUE: Portable upright AP view of the chest FINDINGS: Cardiomediastinal and hilar silhouettes are within normal limits. No pneumothorax, pleural effusion or focal airspace consolidation. No overt pulmonary edema. The bones are grossly intact. IMPRESSION: No acute cardiopulmonary process. The above report was generated using voice recognition software. It may contain grammatical, syntax or spelling errors. Electronically signed by: Nolan Caruso M.D. 04/02/2017 8:06 PM Dictated Date/Time: 04/02/2017 8:05 PM
[2017-04-02] MEDS ORDERED: ACETAMINOPHEN 500 MG TAB PO STA (20:30)
[2017-04-02] MEDS ORDERED: FAMOTIDINE 20MG/102 ML D5W IV STA (20:30)
[2017-04-02 21:59] VITALS: BP 131/74; PULSE 92; O2SAT 98
== END 2017-04-02 21:59 | disposition home or self-care (01) ==
LOC: C.EDB 18:46 → C.EDC 21:59
DX: J44.0 Chronic obstructive pulmonary disease with (acute) lower respiratory infection (principal); J20.9 Acute bronchitis, unspecified; J45.909 Unspecified asthma, uncomplicated; M32.9 Systemic lupus erythematosus, unspecified; F17.200 Nicotine dependence, unspecified, uncomplicated; Z87.81 Personal history of (healed) traumatic fracture; Z79.899 Other long term (current) drug therapy; Z88.8 Allergy status to other drugs, medicaments and biological substances; Z82.49 Family history of ischemic heart disease and other diseases of the circulatory system; Z82.0 Family history of epilepsy and other diseases of the nervous system

== ENCOUNTER 2017-07-09 15:16 | Emergency (ER) | payer SELFPAY ==
[~2017-07-09] VITALS: Ht 147.3 cm; Wt 76.8 kg
[~2017-07-09 15:16] MED LIST changes: -AZIT250T PO; +HYDROXYCHLOROQUINE SULFATE 200 MG TAB PO SCH; -PRED50TA PO; +PREGABALIN 75 MG CAP PO SCH
[2017-07-09 15:20] VITALS: TEMP 36.5; Ht 147.3 cm; Wt 76.8 kg
[2017-07-09] MEDS ORDERED: SODIUM CHLORIDE 0.9% 1000ML 1,000 ML IV STA (15:40)
[2017-07-09] MEDS ORDERED: PREGABALIN 75 MG CAP PO STA (15:40)
[2017-07-09] MEDS ORDERED: DEXAMETHASONE **PF** INJ 10 MG/ML VIAL IV ONE (15:45)
[2017-07-09] MEDS ORDERED: ALBUT/IPRATROP 3MG/0.5MG NEB 3 ML VIAL INH ONE (15:45)
[2017-07-09 16:17] VITALS: O2SAT 97
--- NOTE | 2017-07-09 16:19 | EMERGENCY ROOM VISIT NOTE ---
History Report prepared by Angel: Joel Westfall Under the Supervision of: Dr. Jero Francisco M.D. First contact with patient: 15:24 Chief Complaint: RESPIRATORY PROBLEMS Stated Complaint: FIBROMYALGIA FLARE UP CAN'T BREATH History of Present Illness The patient is a 47 year old female who presents to the Emergency Room with complaints of respiratory symptoms that began 3 days ago. She has a past medical history of fibromyalgia. She believes that she is having a flare up of her fibromyalgia. 3 weeks ago, she tried to get her prescriptions refilled specifically her Lyrica, but they denied her request because she lost her health insurance. 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 She states that she is very fatigued with pain to her head , shoulders, lower back, and knees. She notes that she has been using nebulizer treatments at home for her shortness of breath. She denies any other abnormal symptoms. She notes that she had been taking Prednisone since she was diagnosed with bronchitis. She notes that she had a sharp chest pain a couple of days ago , but none recently. Along with this, her eyes are causing her pain and intermittently watering. She was diagnosed with cataracts unilaterally about 2 years ago but has not followed up with them recently for her other eye. Source of History: patient Onset: three days ago Position: other (Respiratory System) Symptom Intensity: moderate Quality: other (Shortness of breath) Timing: constant Associated Symptoms: + headache, + back pain Note: She is also having bilateral shoulder and knee pain. She denies any other abnormal symptoms. Review of Systems See HPI for pertinent positives and negatives. A total of ten systems were reviewed and were otherwise negative. Past Medical & Surgical Medical Problems: (1) Abdominal pain (2) Acute exacerbation of chronic low back pain (3) Asthma, Unspecified (4) Back pain (5) Back pain (6) Back pain (7) Back strain (8) Back strain (9) Chronic Obstructive Pulmonary Disease, Unspecified (10) Fibromyalgia (11) Fibromyalgia (12) Fracture of metatarsal bone (13) Generalized pain (14) Lumbago (15) Lupus anticoagulant disorder (16) Musculoskeletal chest pain (17) Nodule of chest wall (18) Splenomegaly (19) Swelling of both lower extremities (20) Thoracic back pain (21) Upper abdominal pain Family History Hypertension Stroke Social History Smoking Status: Current Every Day Smoker Alcohol Use: occasionally Marital Status: single, Housing Status: lives with family, other Occupation Status: employed Current/Historical Medications Scheduled Acetaminophen (Tylenol), 1,000 MG PO Q6H Prednisone (Prednisone Tab), 3 TAB PO DAILY Scheduled PRN Albuterol Hfa (Ventolin Hfa), 2 PUFFS INH Q4H PRN for Wheezing Ipratropium-Albuterol (Duoneb), 1 TREATMENT INH QID PRN for SOB/Wheezing Allergies Coded Allergies: Diphenhydramine (Verified Allergy, Unknown, JITTERY, 07/09/17) Milnacipran (Verified Allergy, Unknown, VOMITS, 07/09/17) Physical Exam Vital Signs Date Time Temp Pulse Resp B/P (MAP) Pulse Ox O2 Delivery O2 Flow Rate FiO2 07/09/17 20:22 95 20 138/71 94 07/09/17 18:42 102 20 158/83 93 Room Air 07/09/17 16:21 80 96 Room Air 07/09/17 16:17 97 Room Air 07/09/17 15:47 98 Room Air 07/09/17 15:20 36.5 99 20 135/83 98 Room Air Physical Exam GENERAL: Awake, alert, relatively well-appearing, in no distress HENT: Normocephalic, atraumatic. Oropharynx reveals dry mucous membranes. EYES: Normal conjunctiva. Sclera non-icteric. NECK: Supple. No nuchal rigidity. FROM. No JVD. RESPIRATORY: Scattered wheezes at both bases. CARDIAC: Regular rate, normal rhythm. Extremities warm and well perfused. Pulses equal. ABDOMEN: Soft, non-distended. No tenderness to palpation. No rebound or guarding. No masses. RECTAL: Deferred. MUSCULOSKELETAL: Chest examination reveals no tenderness. The back is symmetrical on inspection without obvious abnormality. There is no CVA tenderness to palpation. No joint edema. Mild discomfort of palpation of all extremities. Full ROM. LOWER EXTREMITIES: Calves are equal size bilaterally and non-tender. No edema. No discoloration. NEURO: Normal sensorium. No sensory or motor deficits noted. SKIN: No rash or jaundice noted. Medical Decision & Procedures ER Provider Diagnostic Interpretation: Radiology results as stated below per my review and radiologist interpretation: CHEST ONE VIEW PORTABLE CLINICAL HISTORY: Chest pain. COMPARISON STUDY: Chest radiograph April 02, 2017. FINDINGS: Lung volumes are normal. No pneumothorax or pleural effusion is present. Opacity along the left upper likely reflects epicardial fat pad. Pulmonary vascularity is normal. The appearance of the chest is unchanged. IMPRESSION: No acute cardiopulmonary findings. Electronically signed by: Armando Box M.D. 07/09/2017 4:43 PM Dictated Date/Time: 07/09/2017 4:42 PM Laboratory Results 07/09/17 16:15 Red Blood Count 4.41, Mean Corpuscular Volume 97.1, Mean Corpuscular Hemoglobin 33.3, Mean Corpuscular Hemoglobin Concent 34.3, Mean Platelet Volume 11.1, Neutrophils (%) (Auto) 65.8, Lymphocytes (%) (Auto) 24.8, Monocytes (%) (Auto) 4.9, Eosinophils (%) (Auto) 3.7, Basophils (%) (Auto) 0.6, Neutrophils # (Auto) 4.32, Lymphocytes # (Auto) 1.63, Monocytes # (Auto) 0.32, Eosinophils # (Auto) 0.24, Basophils # (Auto) 0.04 07/09/17 16:15 Test 07/09/17 16:15 White Blood Count 6.56 K/uL (4.8-10.8) Red Blood Count 4.41 M/uL (4.2-5.4) Hemoglobin 14.7 g/dL (12.0-16.0) Hematocrit 42.8 % (37-47) Mean Corpuscular Volume 97.1 fL (80-100) Mean Corpuscular Hemoglobin 33.3 pg (25-34) Mean Corpuscular Hemoglobin Concent 34.3 g/dl (32-36) Platelet Count 155 K/uL (130-400) Mean Platelet Volume 11.1 fL (7.4-10.4) Neutrophils (%) (Auto) 65.8 % Lymphocytes (%) (Auto) 24.8 % Monocytes (%) (Auto) 4.9 % Eosinophils (%) (Auto) 3.7 % Basophils (%) (Auto) 0.6 % Neutrophils # (Auto) 4.32 K/uL (1.4-6.5) Lymphocytes # (Auto) 1.63 K/uL (1.2-3.4) Monocytes # (Auto) 0.32 K/uL (0.11-0.59) Eosinophils # (Auto) 0.24 K/uL (0-0.5) Basophils # (Auto) 0.04 K/uL (0-0.2) RDW Standard Deviation 46.4 fL (36.4-46.3) RDW Coefficient of Variation 13.1 % (11.5-14.5) Immature Granulocyte % (Auto) 0.2 % Immature Granulocyte # (Auto) 0.01 K/uL (0.00-0.02) Anion Gap 4.0 mmol/L (3-11) Est Creatinine Clear Calc Drug Dose 77.9 ml/min Estimated GFR () 105.8 Estimated GFR (Non- 91.3 BUN/Creatinine Ratio 6.7 (10-20) Calcium Level 9.0 mg/dl (8.5-10.1) Total Bilirubin 0.2 mg/dl (0.2-1) Direct Bilirubin < 0.1 mg/dl (0-0.2) Aspartate Amino Transf (AST/SGOT) 12 U/L (15-37) Alanine Aminotransferase (ALT/SGPT) 30 U/L (12-78) Alkaline Phosphatase 78 U/L (45-117) Troponin I < 0.015 ng/ml (0-0.045) Total Protein 7.1 gm/dl (6.4-8.2) Albumin 3.4 gm/dl (3.4-5.0) Lipase 201 U/L (73-393) Laboratory results reviewed by me Medications Administered Medications (Trade) Dose Ordered Sig/Lindsay Route Start Time Stop Time Status Last Admin Dose Admin Albuterol/ Ipratropium (Duoneb) 12 ml ONE ONCE INH 07/09/17 15:45 07/09/17 15:52 DC 07/09/17 16:18 12 ML Dexamethasone Sodium Phosphate (Dexamethasone Inj Pf) 10 mg NOW ONCE IV 07/09/17 15:45 07/09/17 15:53 DC 07/09/17 17:04 10 MG Sodium Chloride 1,000 ml @ 999 mls/hr Q1H1M STAT IV 07/09/17 15:40 07/09/17 16:40 DC 07/09/17 17:04 999 MLS/HR Pregabalin (Lyrica Cap) 75 mg NOW STAT PO 07/09/17 15:40 12/11/17 15:52 DC 07/09/17 17:04 75 MG Ketorolac Tromethamine (Toradol Inj) 15 mg NOW STAT IV 07/09/17 17:34 07/09/17 17:35 DC 07/09/17 18:33 15 MG Famotidine (Pepcid Tab) 20 mg NOW ONCE PO 07/09/17 17:45 07/09/17 17:46 DC 07/09/17 18:33 20 MG Pregabalin (Lyrica Cap) 75 mg NOW PO 07/09/17 17:45 07/09/17 21:47 DC 07/09/17 20:11 75 MG Trazodone HCl (Desyrel Tab) 100 mg NOW STAT PO 07/09/17 17:34 07/09/17 17:55 DC 07/09/17 18:34 100 MG Hydroxychloroquine Sulfate (Plaquenil Tab) 200 mg NOW STAT PO 07/09/17 17:34 07/09/17 17:55 DC 07/09/17 18:34 200 MG Albuterol/ Ipratropium (Combivent Respimat Inh) 1 puffs NOW STAT INH 07/09/17 17:34 07/09/17 17:55 DC 07/09/17 18:35 1 PUFFS ECG Indication: SOB/dyspnea Rate (beats per minute): 92 Rhythm: sinus rhythm Findings: PVC, no acute ischemic change, other (normal axis) ED Course 1524: The patient was evaluated in room C9. A complete history and physical exam was performed. 1830: I reevaluated the patient. Discussed results and discharge instructions: She verbalized understanding and agreement. The patient is ready for discharge. Medical Decision I reviewed the patient's past medical history, medications, and the nursing notes as described above. Differential diagnosis includes but is not limited to: pneumonia, bronchitis, COPD exacerbation, dehydration, electrolyte abnormalities, ACS, and fibromyalgia. The patient is a 39-year-old woman with a past medical history of lupus on Plaquenil as well as chronic smoking, fibromyalgia presents to emergency department with body aches as well as shortness of breath evolving over the course of today per history of present illness. Symptoms occur in the setting of being off of her medications for the past week after finding that her insurance had lapsed it will she called the benefits office she's been waiting to speak with someone. On exam the patient has scant scattered wheezes -rosales is saturating normally on room air. Patient felt improvement after dexamethasone and nebs. Labs otherwise unremarkable including WBC and troponin within normal limits. EKG and CXR unremarkable. I discussed with patient the challenge of managing her outpatient follow-up given her uncertainty regarding her insurance. Our case management team is assisting and will help facilitate alternatives if she is unable to make arrangements tomorrow. Otherwise in the meantime patient was given home packs of some of her home medications as well as a prescription for prednisone which can be filled at [facility] at low cost. Findings and plan for follow-up reviewed with patient. Patient agreeable and d/c 'd per discharge instructions. Medication Reconcilliation Current Medication List: was personally reviewed by me Blood Pressure Screening Patient's blood pressure: Elevated blood pressure Blood pressure disposition: Elevated BP felt to be situational Impression Primary Impression: COPD exacerbation Additional Impression: Myalgia Scribe Attestation The scribe's documentation has been prepared under my direction and personally reviewed by me in its entirety. I confirm that the note above accurately reflects all work, treatment, procedures, and medical decision making performed by me. Departure Information Dispostion Home / Self-Care Prescriptions Prednisone (Prednisone Tab) 20 Mg Tab 3 TAB PO DAILY for 4 Days, #12 TAB FOR 4 DAYS 60mg daily (may substitue with 5mg tablets) Prov: Jero Francisco M.D. 07/09/17 Referrals No Doctor, Assigned (PCP) Forms HOME CARE DOCUMENTATION FORM, IMPORTANT VISIT INFORMATION, WORK / SCHOOL INSTRUCTIONS Patient Instructions COPD, ED Muscle Aching, My [facility] Additional Instructions Please follow up with your primary care physician in the next 1-3 days for re- evaluation. You likely have an exacerbation of COPD. Otherwise, your exam, EKG, chest xray, and lab results did not show signs of an emergent condition at this time. Our case management team will follow up with your regarding re-establishing your health insurance. In the interm you were provided homepacks of your medications. Take combivent 1 puff every 6 hours as needed for cough. You were additionally given a prescription for prednisone, which [facility] can [facility] cost. Return to the emergency department for worsening symptoms as described in the accompanying instructions. Problem Qualifiers
[2017-07-09 16:21] VITALS: PULSE 80; O2SAT 96
[2017-07-09 16:28] LABS: BASO % 0.6 %; BASO ABS # 0.04 K/uL (0-0.2); COMPLETE YES; EOS % 3.7 %; HEMATOCRIT 42.8 % (37-47); IG% 0.2 %; LYMPH % 24.8 %; LYMPH ABS # 1.63 K/uL (1.2-3.4); MEAN CELL VOLUME 97.1 fL (80-100); MEAN CORPUSCULAR HEMOGLOBIN 33.3 pg (25-34); MEAN CORPUSCULAR HGB CONC 34.3 g/dl (32-36); MEAN PLATELET VOLUME 11.1 fL (7.4-10.4); MONO % 4.9 %; NEUT % 65.8 %; PLATELET COUNT 155 K/uL (130-400); RED BLOOD COUNT 4.41 M/uL (4.2-5.4); WHITE BLOOD COUNT 6.56 K/uL (4.8-10.8)
--- NOTE | 2017-07-09 16:45 | DIAGNOSTIC IMAGING REPORT ---
CHEST ONE VIEW PORTABLE CLINICAL HISTORY: Chest pain. COMPARISON STUDY: Chest radiograph April 02, 2017. FINDINGS: Lung volumes are normal. No pneumothorax or pleural effusion is present. Opacity along the left upper likely reflects epicardial fat pad. Pulmonary vascularity is normal. The appearance of the chest is unchanged. IMPRESSION: No acute cardiopulmonary findings. Electronically signed by: Armando Box M.D. 07/09/2017 4:43 PM Dictated Date/Time: 07/09/2017 4:42 PM
[2017-07-09 16:46] LABS: ALT/SGPT 30 U/L (12-78); AST/SGOT 12 U/L (15-37); BLOOD UREA NITROGEN 5 mg/dl (7-18); BUN/CREATININE RATIO 6.7 (10-20); CARBON DIOXIDE 28 mmol/L (21-32); CHLORIDE 107 mmol/L (98-107); CREATININE 0.77 mg/dl (0.60-1.20); GLUCOSE 100 mg/dl (70-99); POTASSIUM 3.7 mmol/L (3.5-5.1); SODIUM 139 mmol/L (136-145)
[2017-07-09 16:51] LABS: ALKALINE PHOSPHATASE 78 U/L (45-117)
[2017-07-09] MEDS ORDERED: IPRATROPIUM BROMIDE/ALBUTEROL respimat INH INH STA (17:34)
[2017-07-09] MEDS ORDERED: KETOROLAC TROMETHAMINE 30 MG/ML VIAL IV STA (17:34)
[2017-07-09] MEDS ORDERED: HYDROXYCHLOROQUINE SULFATE 200 MG TAB PO STA ×2 (17:34)
[2017-07-09] MEDS ORDERED: TRAZODONE HCL 100 MG TAB PO STA (17:34)
[2017-07-09] MEDS ORDERED: PREGABALIN 75 MG CAP PO SCH ×2 (17:45→19:15)
[2017-07-09] MEDS ORDERED: FAMOTIDINE 20 MG TAB PO ONE (17:45)
[2017-07-09] MEDS ORDERED: PRED20TA2 PO (18:04)
[2017-07-09 20:22] VITALS: BP 138/71; PULSE 95; O2SAT 94
== END 2017-07-09 20:43 | disposition home or self-care (01) ==
LOC: C.EDB 15:18 → C.EDC 20:43
DX: J44.1 Chronic obstructive pulmonary disease with (acute) exacerbation (principal); M79.7 Fibromyalgia; H26.9 Unspecified cataract; J45.909 Unspecified asthma, uncomplicated; F17.200 Nicotine dependence, unspecified, uncomplicated; D68.62 Lupus anticoagulant syndrome; Z82.49 Family history of ischemic heart disease and other diseases of the circulatory system; Z82.3 Family history of stroke; Z79.899 Other long term (current) drug therapy

== ENCOUNTER 2017-07-30 08:28 | Emergency (ER) | payer SELFPAY ==
[~2017-07-30] VITALS: Ht 147.3 cm; Wt 77.6 kg
[~2017-07-30 08:28] MED LIST changes: -BUPR-79 PO; -HYDR200T5 PO; -HYDROXYCHLOROQUINE SULFATE 200 MG TAB PO SCH; +IPRA-64 INH; -IPRASOL4 INH; -MOME200A INH; +PRED20TA2 PO; -PREG1CAP28 PO; -PREGABALIN 75 MG CAP PO SCH; -TRAZ50TA35 PO
[2017-07-30 08:31] VITALS: TEMP 36.7; Ht 147.3 cm; Wt 77.6 kg
[2017-07-30] MEDS ORDERED: METHYLPREDNISOLONE 125 MG VIAL IV STA (08:53)
[2017-07-30] MEDS ORDERED: ALBUT/IPRATROP 3MG/0.5MG NEB 3 ML VIAL INH STA (08:53)
[2017-07-30] MEDS ORDERED: DEXTTAB PO (09:08)
[2017-07-30] MEDS ORDERED: PRLSR20 PO (09:08)
--- NOTE | 2017-07-30 09:27 | DIAGNOSTIC IMAGING REPORT ---
SINGLE VIEW CHEST CLINICAL HISTORY: Cough and dyspnea. FINDINGS: An AP, portable, upright chest radiograph is compared to study dated 07/09/2017. The examination is degraded by portable technique, large body habitus, and apical lordotic positioning. The cardiomediastinal silhouette is unremarkable. The lungs and pleural spaces are clear. No pneumothorax is seen. The bony thorax is grossly intact. IMPRESSION: No active disease in the chest. Electronically signed by: Rudi Burrell M.D. 07/30/2017 9:26 AM Dictated Date/Time: 07/30/2017 9:26 AM
[2017-07-30 10:00] LABS: BASO % 0.4 %; BASO ABS # 0.02 K/uL (0-0.2); EOS % 3.4 %; EOS ABS # 0.16 K/uL (0-0.5); HEMATOCRIT 43.6 % (37-47); HEMOGLOBIN 14.5 g/dL (12.0-16.0); IG# 0.02 K/uL (0.00-0.02); LYMPH % 23.8 %; LYMPH ABS # 1.11 K/uL (1.2-3.4); MEAN CELL VOLUME 99.1 fL (80-100); MEAN CORPUSCULAR HGB CONC 33.3 g/dl (32-36); MEAN PLATELET VOLUME 11.4 fL (7.4-10.4); MONO % 4.5 %; MONO ABS # 0.21 K/uL (0.11-0.59); NEUT % 67.5 %; NEUT ABS # 3.14 K/uL (1.4-6.5); PLATELET COUNT 125 K/uL (130-400); RED CELL DISTRIBUTION WIDTH CV 12.8 % (11.5-14.5); RED CELL DISTRIBUTION WIDTH SD 46.6 fL (36.4-46.3); WHITE BLOOD COUNT 4.66 K/uL (4.8-10.8)
[2017-07-30 10:05] LABS: INFLUENZA B ANTIGEN Neg for Influ B (NEG)
[2017-07-30 10:14] LABS: ALBUMIN 3.6 gm/dl (3.4-5.0); ALT/SGPT 37 U/L (12-78); AST/SGOT 13 U/L (15-37); BLOOD UREA NITROGEN 5 mg/dl (7-18); CALCIUM 8.9 mg/dl (8.5-10.1); CARBON DIOXIDE 29 mmol/L (21-32); CREATININE 0.77 mg/dl (0.60-1.20); GLUCOSE 93 mg/dl (70-99); POTASSIUM 4.4 mmol/L (3.5-5.1); SODIUM 141 mmol/L (136-145)
[2017-07-30 10:19] LABS: ALKALINE PHOSPHATASE 78 U/L (45-117); TOTAL PROTEIN 7.4 gm/dl (6.4-8.2)
[2017-07-30 10:27] VITALS: PULSE 96; O2SAT 96
[2017-07-30] MEDS ORDERED: ALBUT/IPRATROP 3MG/0.5MG NEB 3 ML VIAL INH ONE (10:30)
[2017-07-30] MEDS ORDERED: PRED50TA PO (12:27)
[2017-07-30] MEDS ORDERED: ALBU1.257 NEB (12:27)
--- NOTE | 2017-07-30 12:28 | EMERGENCY ROOM VISIT NOTE ---
History First contact with patient: 08:35 Chief Complaint: SHORTNESS OF BREATH Stated Complaint: CAN'T BREATHE,SOB Nursing Triage Summary: "A couple of days after [place]" began to have difficulty breathing. She relates that yesterday "I woke up with croup". Using nebulizers at home. History of Present Illness The patient is a 47 year old female who presents to the Emergency Room with complaints of difficulty breathing. The patient reports that she has had cold symptoms for the past one day. She reports that the speaking it very difficult for her to breathe. She has a history of COPD and states that her symptoms typically flareup when she gets a cold. She has been taking TheraFlu and using nebulizers without relief. She does report she had some similar symptoms a few weeks ago, which improved but then worsened yesterday. She has a cough which is productive of white phlegm. She does state this feels like similar exacerbations of her COPD. She rates her overall discomfort 8/10. She denies any chest pain, hemoptysis or fevers. Review of Systems A complete 10 point review of systems was reviewed with the patient with pertinent positives and negatives as per history of present illness. All else were negative. Past Medical/Surgical History Medical Problems: (1) Abdominal pain (2) Acute exacerbation of chronic low back pain (3) Asthma, Unspecified (4) Back pain (5) Back pain (6) Back pain (7) Back strain (8) Back strain (9) Chronic Obstructive Pulmonary Disease, Unspecified (10) Fibromyalgia (11) Fibromyalgia (12) Fracture of metatarsal bone (13) Generalized pain (14) Lumbago (15) Lupus anticoagulant disorder (16) Musculoskeletal chest pain (17) Nodule of chest wall (18) Splenomegaly (19) Swelling of both lower extremities (20) Thoracic back pain (21) Upper abdominal pain Family History Hypertension Stroke Social History Smoking Status: Current Every Day Smoker Alcohol Use: occasionally Marital Status: single, Housing Status: lives with family, other Occupation Status: employed Current/Historical Medications Scheduled Acetaminophen (Tylenol), 1,000 MG PO Q6H Albuterol Sulfate (Albuterol Sulfate), 1 VIAL NEB Q6 Dextromethorphan-Phenylephrine (Theraflu Severe Cold & Co), 1 TAB PO UD Omeprazole (Prilosec), 20 MG PO DAILY Prednisone (Prednisone), 50 MG PO DAILY Scheduled PRN Albuterol Hfa (Ventolin Hfa), 2 PUFFS INH Q4H PRN for Wheezing Ipratropium-Albuterol (Duoneb), 1 TREATMENT INH QID PRN for SOB/Wheezing Physical Exam Vital Signs Date Time Temp Pulse Resp B/P (MAP) Pulse Ox O2 Delivery O2 Flow Rate FiO2 07/30/17 12:56 119 144/84 93 07/30/17 11:31 129/77 07/30/17 11:30 112 17 94 07/30/17 11:00 97 26 158/109 99 07/30/17 10:27 96 18 96 Room Air 07/30/17 09:56 102 12 157/99 97 Room Air 07/30/17 09:35 87 07/30/17 09:23 Room Air 07/30/17 08:31 36.7 96 22 174/104 98 Room Air Physical Exam VITALS: Vitals are noted on the nurse's note and reviewed by myself. Vital signs stable. GENERAL: This is a 47-year-old female, in no acute distress, nondiaphoretic, well-developed well-nourished. SKIN: The skin was without rashes. EARS: External auditory canals clear, tympanic membranes pearly velez without erythema or effusion bilaterally. EYES: Pupils equal round and reactive to light and accommodation. MOUTH: Mucous membranes moist. Tonsils are not enlarged. Pharynx without erythema or exudate. NECK: Supple without nuchal rigidity. No lymphadenopathy. HEART: Regular rate and rhythm without murmurs gallops or rubs. LUNGS: Diffuse expiratory wheezes throughout all lung koch. No retractions or accessory muscle use. NEURO: Patient was alert and oriented to person place and time. Medical Decision & Procedures ER Provider Diagnostic Interpretation: SINGLE VIEW CHEST CLINICAL HISTORY: Cough and dyspnea. FINDINGS: An AP, portable, upright chest radiograph is compared to study dated 07/09/2017. The examination is degraded by portable technique, large body habitus, and apical lordotic positioning. The cardiomediastinal silhouette is unremarkable. The lungs and pleural spaces are clear. No pneumothorax is seen. The bony thorax is grossly intact. IMPRESSION: No active disease in the chest. Laboratory Results 07/30/17 09:45 Red Blood Count 4.40, Mean Corpuscular Volume 99.1, Mean Corpuscular Hemoglobin 33.0, Mean Corpuscular Hemoglobin Concent 33.3, Mean Platelet Volume 11.4, Neutrophils (%) (Auto) 67.5, Lymphocytes (%) (Auto) 23.8, Monocytes (%) (Auto) 4.5, Eosinophils (%) (Auto) 3.4, Basophils (%) (Auto) 0.4, Neutrophils # (Auto) 3.14, Lymphocytes # (Auto) 1.11, Monocytes # (Auto) 0.21, Eosinophils # (Auto) 0.16, Basophils # (Auto) 0.02 07/30/17 09:45 Test 07/30/17 09:30 07/30/17 09:45 Influenza Type A Antigen Neg for Influ A (NEG) Influenza Type B Antigen Neg for Influ B (NEG) White Blood Count 4.66 K/uL (4.8-10.8) Red Blood Count 4.40 M/uL (4.2-5.4) Hemoglobin 14.5 g/dL (12.0-16.0) Hematocrit 43.6 % (37-47) Mean Corpuscular Volume 99.1 fL (80-100) Mean Corpuscular Hemoglobin 33.0 pg (25-34) Mean Corpuscular Hemoglobin Concent 33.3 g/dl (32-36) Platelet Count 125 K/uL (130-400) Mean Platelet Volume 11.4 fL (7.4-10.4) Neutrophils (%) (Auto) 67.5 % Lymphocytes (%) (Auto) 23.8 % Monocytes (%) (Auto) 4.5 % Eosinophils (%) (Auto) 3.4 % Basophils (%) (Auto) 0.4 % Neutrophils # (Auto) 3.14 K/uL (1.4-6.5) Lymphocytes # (Auto) 1.11 K/uL (1.2-3.4) Monocytes # (Auto) 0.21 K/uL (0.11-0.59) Eosinophils # (Auto) 0.16 K/uL (0-0.5) Basophils # (Auto) 0.02 K/uL (0-0.2) RDW Standard Deviation 46.6 fL (36.4-46.3) RDW Coefficient of Variation 12.8 % (11.5-14.5) Immature Granulocyte % (Auto) 0.4 % Immature Granulocyte # (Auto) 0.02 K/uL (0.00-0.02) Anion Gap 3.0 mmol/L (3-11) Est Creatinine Clear Calc Drug Dose 78.4 ml/min Estimated GFR () 105.8 Estimated GFR (Non- 91.3 BUN/Creatinine Ratio 7.0 (10-20) Calcium Level 8.9 mg/dl (8.5-10.1) Total Bilirubin 0.2 mg/dl (0.2-1) Aspartate Amino Transf (AST/SGOT) 13 U/L (15-37) Alanine Aminotransferase (ALT/SGPT) 37 U/L (12-78) Alkaline Phosphatase 78 U/L (45-117) Troponin I < 0.015 ng/ml (0-0.045) Total Protein 7.4 gm/dl (6.4-8.2) Albumin 3.6 gm/dl (3.4-5.0) Globulin 3.8 gm/dl (2.5-4.0) Albumin/Globulin Ratio 0.9 (0.9-2) Medications Administered Medications (Trade) Dose Ordered Sig/Lindsay Route Start Time Stop Time Status Last Admin Dose Admin Albuterol/ Ipratropium (Duoneb) 3 ml NOW STAT INH 07/30/17 08:53 07/30/17 08:55 DC 07/30/17 09:25 3 ML Methylprednisolone Sodium Succinate (Solu-Medrol IV) 125 mg NOW STAT IV 07/30/17 08:53 07/30/17 08:55 DC 07/30/17 09:54 125 MG Albuterol/ Ipratropium (Duoneb) 12 ml ONE ONCE INH 07/30/17 10:30 07/30/17 10:31 DC 07/30/17 10:26 12 ML ED Course The patient was evaluated as above. Labs were drawn and IV access was obtained. Patient was medicated with a DuoNeb treatment and Solu-Medrol. Chest x-ray was performed and read by radiology as above. Patient was reevaluated and was still feeling short of breath. An hour-long DuoNeb was ordered. Patient was reevaluated and was feeling much better. Discharge instructions were reviewed with the patient. The patient verbalized understanding of my assessment and treatment plan and was discharged home in good condition. Medical Decision Differential diagnosis includes COPD exacerbation, pneumonia, influenza, among others. The patient is a 47-year-old female who presents today complaining of respiratory symptoms. Labs revealed no leukocytosis, anemia or concerning electrolyte abnormalities. Rapid influenza testing was negative. Chest x-ray shows no evidence of pneumonia. Patient was treated with DuoNeb treatments and IV steroids with significant improvement. The patient felt well enough to go home. She was very anxious about returning to work and reports she feels like this is worsening her symptoms. I did offer to write the patient excuse for work for the next 2 days and she felt very relieved at hearing this. She will be given a prescription for prednisone and follow-up with her primary care provider. The patient's case was reviewed with Dr. Brumfield, ED attending physician, who agreed with my assessment and treatment plan. Based on the patient's presentation and work up, I feel the patient is stable for outpatient treatment. The patient was educated to return to the emergency department for any worsening of their current condition or new/concerning symptoms. She will follow up with her PCP. Medication Reconcilliation Current Medication List: was personally reviewed by me Blood Pressure Screening Patient's blood pressure: Elevated blood pressure Blood pressure disposition: Referred to PCP Impression Primary Impression: COPD exacerbation Departure Information Dispostion Home / Self-Care Condition GOOD Prescriptions Prednisone (Prednisone) 50 Mg Tab 50 MG PO DAILY for 4 Days, #4 TAB Prov: Carmen Silva PA-C 07/30/17 Albuterol Sulfate (ALBUTEROL SULFATE) 1.25 Mg/3 Ml Neb 1 VIAL NEB Q6 for 15 Days, #150 ML Prov: Carmen Silva PA-C 07/30/17 Referrals No Doctor, Assigned (PCP) Patient Instructions My [facility] Additional Instructions Prednisone as prescribed. Use the breathing treatments as needed for cough/shortness of breath. Follow-up with your primary care provider for a recheck. Return to the emergency department with worsening shortness of breath, high fevers, chest pain or any other new/concerning symptoms.
[2017-07-30 12:56] VITALS: BP 144/84; PULSE 119; O2SAT 93
[2017-12-31] MEDS ORDERED: HYDR200T5 PO (10:02)
[2017-12-31] MEDS ORDERED: DEXL30CA5 PO (10:02)
[2017-12-31] MEDS ORDERED: SPRIN/30 INH (10:45)
== END 2017-07-30 12:57 | disposition home or self-care (01) ==
LOC: C.EDB 08:29
DX: J44.1 Chronic obstructive pulmonary disease with (acute) exacerbation (principal); J45.909 Unspecified asthma, uncomplicated; D68.62 Lupus anticoagulant syndrome; F17.200 Nicotine dependence, unspecified, uncomplicated; Z82.49 Family history of ischemic heart disease and other diseases of the circulatory system; Z82.3 Family history of stroke

== ENCOUNTER 2017-09-03 07:33 | Emergency (ER) | payer SELFPAY ==
[~2017-09-03] VITALS: Ht 147.3 cm; Wt 77.0 kg
[~2017-09-03 07:33] MED LIST changes: +DEXTTAB PO; -IPRA-64 INH; +IPRASOL4 INH; -PRED20TA2 PO; +PRLSR20 PO
[2017-09-03 07:37] VITALS: TEMP 36.9; Ht 147.3 cm; Wt 77.0 kg
[2017-09-03] MEDS ORDERED: METHYLPREDNISOLONE 125 MG VIAL IV STA (07:46)
[2017-09-03] MEDS ORDERED: ALBUT/IPRATROP 3MG/0.5MG NEB 3 ML VIAL INH STA (07:46)
[2017-09-03] MEDS ORDERED: PSEU60TA80 PO (08:14)
[2017-09-03 08:15] LABS: BASO % 0.3 %; BASO ABS # 0.02 K/uL (0-0.2); EOS % 2.7 %; EOS ABS # 0.16 K/uL (0-0.5); HEMATOCRIT 43.1 % (37-47); HEMOGLOBIN 14.5 g/dL (12.0-16.0); LYMPH % 16.1 %; LYMPH ABS # 0.97 K/uL (1.2-3.4); MEAN CELL VOLUME 97.7 fL (80-100); MEAN CORPUSCULAR HEMOGLOBIN 32.9 pg (25-34); MEAN CORPUSCULAR HGB CONC 33.6 g/dl (32-36); MEAN PLATELET VOLUME 11.3 fL (7.4-10.4); NEUT % 75.9 %; NEUT ABS # 4.57 K/uL (1.4-6.5); PLATELET COUNT 153 K/uL (130-400); RED CELL DISTRIBUTION WIDTH CV 12.8 % (11.5-14.5); RED CELL DISTRIBUTION WIDTH SD 45.6 fL (36.4-46.3); WHITE BLOOD COUNT 6.02 K/uL (4.8-10.8)
--- NOTE | 2017-09-03 08:39 | DIAGNOSTIC IMAGING REPORT ---
CHEST 2 VIEWS ROUTINE HISTORY: 47 years-old Female cough/ SOB acute cough and shortness of breath COMPARISON: Chest radiograph 07/30/2017, 07/09/2017 and 04/02/2017 TECHNIQUE: PA and lateral views of the chest FINDINGS: Cardiac silhouette is within normal limits. No pneumothorax or large pleural effusion. There is mild blunting of the left posterior costophrenic angle which may reflect trace effusion or atelectasis. Right infrahilar and lingular airspace opacities are noted. No overt pulmonary edema. Bones of the chest appear grossly intact. IMPRESSION: Right infrahilar and lingular airspace opacities are suspicious for pneumonia in the appropriate clinical setting. The above report was generated using voice recognition software. It may contain grammatical, syntax or spelling errors. Electronically signed by: Nolan Caruso M.D. 09/03/2017 8:38 AM Dictated Date/Time: 09/03/2017 8:35 AM
[2017-09-03 08:41] LABS: CALCIUM 9.2 mg/dl (8.5-10.1); CREATININE 0.85 mg/dl (0.60-1.20); POTASSIUM 4.2 mmol/L (3.5-5.1)
[2017-09-03] MEDS ORDERED: AZIT500T PO (08:49)
--- NOTE | 2017-09-03 08:51 | EMERGENCY ROOM VISIT NOTE ---
History First contact with patient: 07:40 Chief Complaint: SHORTNESS OF BREATH Stated Complaint: COPD, CAN'T BREATHE History of Present Illness The patient is a 47 year old female who presents to the Emergency Room with complaints of chest tightness and shortness of breath. The patient states that she smokes and has COPD. She states that she ran out of her nebulizer a few days ago and since that time she has increased chest tightness. She also states that her inhalers are not working properly. She currently does not have any insurance therefore she cannot get any more medications. The patient denies any headache, fever, ear pain or head congestion. The patient states that she started taking Mucinex yesterday and is coughing up some white sputum. The patient denies any body aches or weakness. Review of Systems 10 system review was performed and was negative unless stated otherwise history of present illness. Past Medical/Surgical History Medical Problems: (1) Abdominal pain (2) Acute exacerbation of chronic low back pain (3) Asthma, Unspecified (4) Back pain (5) Back pain (6) Back pain (7) Back strain (8) Back strain (9) Chronic Obstructive Pulmonary Disease, Unspecified (10) Fibromyalgia (11) Fibromyalgia (12) Fracture of metatarsal bone (13) Generalized pain (14) Lumbago (15) Lupus anticoagulant disorder (16) Musculoskeletal chest pain (17) Nodule of chest wall (18) Splenomegaly (19) Swelling of both lower extremities (20) Thoracic back pain (21) Upper abdominal pain Family History Hypertension Stroke Social History Smoking Status: Current Every Day Smoker Alcohol Use: occasionally Marital Status: single, Housing Status: lives with family, other Occupation Status: employed Current/Historical Medications Scheduled Acetaminophen (Tylenol), 1,000 MG PO Q6H Omeprazole (Prilosec), 20 MG PO DAILY Pseudoephedrine-Guaifenesin (Mucinex D), 1 TAB PO BID Scheduled PRN Albuterol Hfa (Ventolin Hfa), 2 PUFFS INH Q4H PRN for Wheezing Ipratropium-Albuterol (Duoneb), 1 TREATMENT INH QID PRN for SOB/Wheezing Physical Exam Vital Signs Date Time Temp Pulse Resp B/P (MAP) Pulse Ox O2 Delivery O2 Flow Rate FiO2 2/18 07:37 36.9 94 18 148/94 94 Room Air Physical Exam PHYSICAL EXAM: Vital Signs were reviewed: Temperature 36.9, blood pressure 140/ 94, pulse 94, respirations 18 Reviewed Nurse's notes and agree. Oxygen saturation is 94 % on room air which is normal . GENERAL 47-year-old female appears in no acute distress. MENTAL STATUS: Alert, oriented, coherent. EARS: Canals clear. TMs good light reflex, no erythema or fluid level noted. NOSE: Nasal mucosa with moderate erythema engorgement. PHARYNX: No erythema, no edema noted. No exudate noted. Airway is adequate. NECK: Supple, non-tender. No lymphadenopathy noted. LUNGS: Patient has diffuse expiratory wheeze noted bilaterally along koch. No rales or rhonchi noted. Good air exchange noted. CARDIAC: Regular rate and rhythm without murmur. SKIN: No rashes noted. Medical Decision & Procedures ER Provider Diagnostic Interpretation: CHEST 2 VIEWS ROUTINE HISTORY: 47 years-old Female cough/ SOB acute cough and shortness of breath COMPARISON: Chest radiograph 07/30/2017, 07/09/2017 and 04/02/2017 TECHNIQUE: PA and lateral views of the chest FINDINGS: Cardiac silhouette is within normal limits. No pneumothorax or large pleural effusion. There is mild blunting of the left posterior costophrenic angle which may reflect trace effusion or atelectasis. Right infrahilar and lingular airspace opacities are noted. No overt pulmonary edema. Bones of the chest appear grossly intact. IMPRESSION: Right infrahilar and lingular airspace opacities are suspicious for pneumonia in the appropriate clinical setting. The above report was generated using voice recognition software. It may contain grammatical, syntax or spelling errors. Electronically signed by: Nolan Caruso M.D. 09/03/2017 8:38 AM Laboratory Results 09/03/17 08:00 Red Blood Count 4.41, Mean Corpuscular Volume 97.7, Mean Corpuscular Hemoglobin 32.9, Mean Corpuscular Hemoglobin Concent 33.6, Mean Platelet Volume 11.3, Neutrophils (%) (Auto) 75.9, Lymphocytes (%) (Auto) 16.1, Monocytes (%) (Auto) 5.0, Eosinophils (%) (Auto) 2.7, Basophils (%) (Auto) 0.3, Neutrophils # (Auto) 4.57, Lymphocytes # (Auto) 0.97, Monocytes # (Auto) 0.30, Eosinophils # (Auto) 0.16, Basophils # (Auto) 0.02 09/03/17 08:00 Test 09/03/17 08:00 White Blood Count 6.02 K/uL (4.8-10.8) Red Blood Count 4.41 M/uL (4.2-5.4) Hemoglobin 14.5 g/dL (12.0-16.0) Hematocrit 43.1 % (37-47) Mean Corpuscular Volume 97.7 fL (80-100) Mean Corpuscular Hemoglobin 32.9 pg (25-34) Mean Corpuscular Hemoglobin Concent 33.6 g/dl (32-36) Platelet Count 153 K/uL (130-400) Mean Platelet Volume 11.3 fL (7.4-10.4) Neutrophils (%) (Auto) 75.9 % Lymphocytes (%) (Auto) 16.1 % Monocytes (%) (Auto) 5.0 % Eosinophils (%) (Auto) 2.7 % Basophils (%) (Auto) 0.3 % Neutrophils # (Auto) 4.57 K/uL (1.4-6.5) Lymphocytes # (Auto) 0.97 K/uL (1.2-3.4) Monocytes # (Auto) 0.30 K/uL (0.11-0.59) Eosinophils # (Auto) 0.16 K/uL (0-0.5) Basophils # (Auto) 0.02 K/uL (0-0.2) RDW Standard Deviation 45.6 fL (36.4-46.3) RDW Coefficient of Variation 12.8 % (11.5-14.5) Immature Granulocyte % (Auto) 0.0 % Immature Granulocyte # (Auto) 0.00 K/uL (0.00-0.02) Anion Gap 7.0 mmol/L (3-11) Est Creatinine Clear Calc Drug Dose 70.7 ml/min Estimated GFR () 93.9 Estimated GFR (Non- 81.0 BUN/Creatinine Ratio 5.9 (10-20) Calcium Level 9.2 mg/dl (8.5-10.1) Medications Administered Medications (Trade) Dose Ordered Sig/Lindsay Route Start Time Stop Time Status Last Admin Dose Admin Methylprednisolone Sodium Succinate (Solu-Medrol IV) 125 mg NOW STAT IV 09/03/17 07:46 09/03/17 07:48 DC 09/03/17 08:13 125 MG Albuterol/ Ipratropium (Duoneb) 3 ml NOW STAT INH 09/03/17 07:46 09/03/17 07:48 DC 09/03/17 08:13 3 ML ED Course The patient was evaluated. Patient's EMR and medication list were reviewed. IV access was obtained. CBC and differential, renal profile was ordered. The patient was given Solu-Medrol 125 mg IV. The patient was given a DuoNeb. Chest x-ray was ordered interpreted by the radiologist and myself with lingular opacification consistent with pneumonia. Labs are reviewed and were unremarkable. The patient was given Zithromax 500 mg by mouth. The patient was given albuterol inhaler to take with her. The patient was discharged home in stable condition. Medical Decision Pneumonia, COPD exacerbation, bronchitis [place] Drug Monitoring Program Search Results: patient reviewed within database Medication Reconcilliation Current Medication List: was personally reviewed by me Blood Pressure Screening Patient's blood pressure: Elevated blood pressure Blood pressure disposition: Elevated BP felt to be situational Impression Primary Impression: Pneumonia Departure Information Dispostion Home / Self-Care Condition GOOD Prescriptions Azithromycin (ZITHROMAX) 500 Mg Tab 500 MG PO DAILY for 4 Days, #4 TAB Prov: Meredith Lowe, SHIRA 09/03/17 Referrals No Doctor, Assigned (PCP) Forms HOME CARE DOCUMENTATION FORM, IMPORTANT VISIT INFORMATION Patient Instructions ED Pneumonia Adult, My [facility] Additional Instructions Take Zithromax as prescribed. Albuterol inhaler 2 puffs every 4 hours for 5 days then 2 puffs every 4 hours as needed for chest tightness or cough. Follow- up with your family doctor in 2 days for recheck. If symptoms worsen in the interim, return to ER. Problem Qualifiers Primary Impression: Pneumonia Pneumonia type: due to unspecified organism Laterality: right Lung location : unspecified part of lung Qualified Codes: J18.9 - Pneumonia, unspecified organism
[2017-09-03] MEDS ORDERED: ALBUTEROL HFA 8 GM INHALER INH STA (08:54)
[2017-09-03] MEDS ORDERED: AZITHROMYCIN 250 MG TAB PO STA (08:54)
[2017-09-03 09:44] VITALS: BP 138/93; PULSE 90; O2SAT 94
== END 2017-09-03 09:55 | disposition home or self-care (01) ==
LOC: C.EDB 07:35 → C.EDA 09:55
DX: J18.9 Pneumonia, unspecified organism (principal); F17.210 Nicotine dependence, cigarettes, uncomplicated; J44.9 Chronic obstructive pulmonary disease, unspecified; J45.909 Unspecified asthma, uncomplicated; M79.7 Fibromyalgia; D68.62 Lupus anticoagulant syndrome; Z82.49 Family history of ischemic heart disease and other diseases of the circulatory system; Z82.3 Family history of stroke; Z79.899 Other long term (current) drug therapy

== ENCOUNTER 2017-09-07 15:06 | Emergency (ER) | payer SELFPAY ==
[~2017-09-07] VITALS: Ht 147.3 cm; Wt 76.0 kg
[~2017-09-07 15:06] MED LIST changes: +AZIT500T PO; -DEXTTAB PO; +PSEU60TA80 PO
[2017-09-07 15:24] VITALS: TEMP 36.9; Ht 147.3 cm; Wt 76.0 kg
[2017-09-07] MEDS ORDERED: METHYLPREDNISOLONE 125 MG VIAL IV STA (18:04)
[2017-09-07] MEDS ORDERED: ALBUT/IPRATROP 3MG/0.5MG NEB 3 ML VIAL INH ONE (18:15)
[2017-09-07 18:20] VITALS: O2SAT 95
[2017-09-07 18:46] LABS: BASO % 0.2 %; BASO ABS # 0.01 K/uL (0-0.2); EOS % 4.1 %; EOS ABS # 0.23 K/uL (0-0.5); HEMATOCRIT 42.4 % (37-47); HEMOGLOBIN 14.3 g/dL (12.0-16.0); IG# 0.01 K/uL (0.00-0.02); LYMPH % 37.2 %; LYMPH ABS # 2.08 K/uL (1.2-3.4); MEAN CELL VOLUME 96.4 fL (80-100); MEAN CORPUSCULAR HEMOGLOBIN 32.5 pg (25-34); MEAN CORPUSCULAR HGB CONC 33.7 g/dl (32-36); MEAN PLATELET VOLUME 11.7 fL (7.4-10.4); MONO % 6.1 %; MONO ABS # 0.34 K/uL (0.11-0.59); NEUT % 52.2 %; NEUT ABS # 2.92 K/uL (1.4-6.5); PLATELET COUNT 153 K/uL (130-400); RED CELL DISTRIBUTION WIDTH CV 12.9 % (11.5-14.5); RED CELL DISTRIBUTION WIDTH SD 45.1 fL (36.4-46.3); WHITE BLOOD COUNT 5.59 K/uL (4.8-10.8)
[2017-09-07 19:04] LABS: ALBUMIN 3.3 gm/dl (3.4-5.0); CALCIUM 9.2 mg/dl (8.5-10.1); CREATININE 0.81 mg/dl (0.60-1.20)
[2017-09-07 19:06] LABS: TOTAL PROTEIN 7.1 gm/dl (6.4-8.2)
--- NOTE | 2017-09-07 19:10 | DIAGNOSTIC IMAGING REPORT ---
CHEST 2 VIEWS ROUTINE CLINICAL HISTORY: Pneumonia. COPD. SOB dyspnea COMPARISON STUDY: 09/03/2017 FINDINGS: The bibasilar parenchymal infiltrates are slightly improved. Upper lungs remain clear. Diaphragms smooth. No significant cardiac enlargement. IMPRESSION: Bibasilar parenchymal infiltrates slightly improved from the prior study. The above report was generated using voice recognition software. It may contain grammatical, syntax or spelling errors. Electronically signed by: David Lowe M.D. 09/07/2017 7:09 PM Dictated Date/Time: 09/07/2017 7:08 PM
[2017-09-07] MEDS ORDERED: METH4PAK PO (19:56)
[2017-09-07] MEDS ORDERED: LEVO1TAB35 PO (19:56)
[2017-09-07] MEDS ORDERED: LEVOFLOXACIN 750 MG TAB PO ONE (20:00)
[2017-09-07] MEDS ORDERED: LEVOFLOXACIN 250 MG TAB ONE (20:14)
[2017-09-07 20:18] VITALS: BP 125/74; PULSE 89; O2SAT 90
--- NOTE | 2017-09-07 23:55 | EMERGENCY ROOM VISIT NOTE ---
History First contact with patient: 17:57 Chief Complaint: RESPIRATORY PROBLEMS Stated Complaint: PNEUMONIA, SOB, HEADACHE, MUSCLE SPASMS Nursing Triage Summary: c/o pneumonia not getting any better with a cough and ART History of Present Illness The patient is a 47 year old female who presents to the Emergency Room with complaints of persistent coughing and difficulty breathing over the past week. The patient was seen and evaluated 4 days ago in the department with this complaint. She was diagnosed with pneumonia on x-ray and discharged with an inhaler and Zithromax. The patient has been taking the medication as prescribed , but continues with discomfort and persistent symptoms. She was not able to go to work today because of her coughing. The patient has a history of COPD and smokes tobacco on a daily basis. She has not had fever or chills. Her cough is nonproductive, and she does have some posttussive chest pain. No additional pains are noted. She rates her discomfort a 6/10. Review of Systems More than 10 systems were reviewed and otherwise negative with the exception of history of present illness. Past Medical/Surgical History Medical Problems: (1) Abdominal pain (2) Acute exacerbation of chronic low back pain (3) Asthma, Unspecified (4) Back pain (5) Back pain (6) Back pain (7) Back strain (8) Back strain (9) Chronic Obstructive Pulmonary Disease, Unspecified (10) Fibromyalgia (11) Fibromyalgia (12) Fracture of metatarsal bone (13) Generalized pain (14) Lumbago (15) Lupus anticoagulant disorder (16) Musculoskeletal chest pain (17) Nodule of chest wall (18) Splenomegaly (19) Swelling of both lower extremities (20) Thoracic back pain (21) Upper abdominal pain Family History Hypertension Stroke Social History Smoking Status: Current Every Day Smoker Alcohol Use: occasionally Marital Status: single, Housing Status: lives with family, other Occupation Status: employed Current/Historical Medications Scheduled Acetaminophen (Tylenol), 1,000 MG PO Q6H Levofloxacin (Levaquin), 750 MG PO DAILY Methylprednisolone (Medrol Dosepak), 1 PKT PO DIRECTED Omeprazole (Prilosec), 20 MG PO DAILY Scheduled PRN Albuterol Hfa (Ventolin Hfa), 2 PUFFS INH Q4H PRN for Wheezing Ipratropium-Albuterol (Duoneb), 1 TREATMENT INH QID PRN for SOB/Wheezing Physical Exam Vital Signs Date Time Temp Pulse Resp B/P (MAP) Pulse Ox O2 Delivery O2 Flow Rate FiO2 09/07/17 20:18 89 18 125/74 90 09/07/17 18:21 101 17 139/92 94 Room Air 09/07/17 18:20 95 09/07/17 15:24 36.9 94 20 140/102 93 Physical Exam VITALS: Vitals are noted on the nurse's note and reviewed by myself. Vital signs stable. GENERAL: Well-developed, well-nourished, white female who appears ill but nontoxic. NECK: Supple without nuchal rigidity. No lymphadenopathy. No thyromegaly. Cervical spine is nontender. HEART: Regular rate and rhythm without murmurs gallops or rubs. LUNGS: Diffuse wheezing and rhonchi throughout ABDOMEN: Positive normal bowel sounds x 4. Soft, nontender, without masses or organomegaly. No guarding or rebound tenderness. MUSCULOSKELETAL: No muscle atrophy, erythema, or edema noted. Full range of motion without joint tenderness in all extremities. Medical Decision & Procedures ER Provider Diagnostic Interpretation: CHEST 2 VIEWS ROUTINE CLINICAL HISTORY: Pneumonia. COPD. SOB dyspnea COMPARISON STUDY: 09/03/2017 FINDINGS: The bibasilar parenchymal infiltrates are slightly improved. Upper lungs remain clear. Diaphragms smooth. No significant cardiac enlargement. IMPRESSION: Bibasilar parenchymal infiltrates slightly improved from the prior study. Laboratory Results 09/07/17 18:30 Red Blood Count 4.40, Mean Corpuscular Volume 96.4, Mean Corpuscular Hemoglobin 32.5, Mean Corpuscular Hemoglobin Concent 33.7, Mean Platelet Volume 11.7, Neutrophils (%) (Auto) 52.2, Lymphocytes (%) (Auto) 37.2, Monocytes (%) (Auto) 6.1, Eosinophils (%) (Auto) 4.1, Basophils (%) (Auto) 0.2, Neutrophils # (Auto) 2.92, Lymphocytes # (Auto) 2.08, Monocytes # (Auto) 0.34, Eosinophils # (Auto) 0.23, Basophils # (Auto) 0.01 09/07/17 18:30 Test 09/07/17 18:30 09/07/17 18:35 White Blood Count 5.59 K/uL (4.8-10.8) Red Blood Count 4.40 M/uL (4.2-5.4) Hemoglobin 14.3 g/dL (12.0-16.0) Hematocrit 42.4 % (37-47) Mean Corpuscular Volume 96.4 fL (80-100) Mean Corpuscular Hemoglobin 32.5 pg (25-34) Mean Corpuscular Hemoglobin Concent 33.7 g/dl (32-36) Platelet Count 153 K/uL (130-400) Mean Platelet Volume 11.7 fL (7.4-10.4) Neutrophils (%) (Auto) 52.2 % Lymphocytes (%) (Auto) 37.2 % Monocytes (%) (Auto) 6.1 % Eosinophils (%) (Auto) 4.1 % Basophils (%) (Auto) 0.2 % Neutrophils # (Auto) 2.92 K/uL (1.4-6.5) Lymphocytes # (Auto) 2.08 K/uL (1.2-3.4) Monocytes # (Auto) 0.34 K/uL (0.11-0.59) Eosinophils # (Auto) 0.23 K/uL (0-0.5) Basophils # (Auto) 0.01 K/uL (0-0.2) RDW Standard Deviation 45.1 fL (36.4-46.3) RDW Coefficient of Variation 12.9 % (11.5-14.5) Immature Granulocyte % (Auto) 0.2 % Immature Granulocyte # (Auto) 0.01 K/uL (0.00-0.02) Anion Gap 7.0 mmol/L (3-11) Est Creatinine Clear Calc Drug Dose 73.7 ml/min Estimated GFR () 99.5 Estimated GFR (Non- 85.9 BUN/Creatinine Ratio 11.2 (10-20) Calcium Level 9.2 mg/dl (8.5-10.1) Total Bilirubin 0.2 mg/dl (0.2-1) Aspartate Amino Transf (AST/SGOT) 27 U/L (15-37) Alanine Aminotransferase (ALT/SGPT) 43 U/L (12-78) Alkaline Phosphatase 63 U/L (45-117) Total Protein 7.1 gm/dl (6.4-8.2) Albumin 3.3 gm/dl (3.4-5.0) Globulin 3.8 gm/dl (2.5-4.0) Albumin/Globulin Ratio 0.9 (0.9-2) Bedside Lactic Acid Venous 0.87 mmol/L (0.90-1.70) Medications Administered Medications (Trade) Dose Ordered Sig/Lindsay Route Start Time Stop Time Status Last Admin Dose Admin Methylprednisolone Sodium Succinate (Solu-Medrol IV) 125 mg NOW STAT IV 09/07/17 18:04 09/07/17 18:06 DC 09/07/17 18:36 125 MG Albuterol/ Ipratropium (Duoneb) 3 ml NOW ONCE INH 09/07/17 18:15 09/07/17 18:16 DC 09/07/17 18:36 3 ML Levofloxacin (Levaquin Tab) 750 mg STK-MED ONCE .ROUTE 09/07/17 20:14 09/07/17 20:15 DC 09/07/17 20:16 750 MG ED Course Physical exam and history were performed. Nursing notes, EMR, and Medication List were personally reviewed. Patient appears to have diffuse wheezing and rhonchi on examination. She has a recent diagnosis of pneumonia at this facility, and states that she does not feel improved despite Zithromax. IV access was established and labs were obtained. The patient was given a DuoNeb and IV Solu-Medrol here. Chest x-ray was performed. The patient's blood work is as above and was reviewed. She does not have a significantly elevated white blood cell count, gross anemia, bandemia, or significant electrolyte imbalance. Chest x-ray appears slightly improved from x -ray few days ago, which is reassuring. On reevaluation the patient did continue to have wheezing and rhonchi on examination, however this was better with the breathing treatment and the steroids. I discussed options of care with the patient, who overall appears stable for discharge home. I will give her a course of Levaquin and a Medrol Dosepak. We'll also give her a few days off work. She was counseled to quit smoking. The patient really needs to follow with her primary care physician for further management. She was otherwise invited back to the ER with any new, worsening, or concerning symptoms. The chart was completed utilizing [employer] Voice Recognition Software. Grammatical errors, random word insertions, pronoun errors, and incomplete sentences are an occasional consequence of this system due to software limitations, ambient noise, and hardware issues. Any formal questions or concerns about the content, text, or information contained within the body of this dictation should be directly addressed to the provider for clarification. . Medical Decision Differential diagnosis: Etiologies such as infections, reactive airway disease, pneumonia, pneumothorax , COPD, CHF, cardiac ischemia, pulmonary embolism, musculoskeletal, gastrointestinal, as well as others were entertained. Impression Primary Impression: Pneumonia Additional Impression: COPD exacerbation Departure Information Dispostion Home / Self-Care Condition GOOD Prescriptions Methylprednisolone (MEDROL DOSEPAK) 4 Mg [place] 1 PKT PO DIRECTED, #1 PKT Prov: Arnie Murray PA-C 09/07/17 Levofloxacin (Levaquin) 750 Mg Tab 750 MG PO DAILY for 6 Days, #6 TAB Prov: Arnie Murray PA-C 09/07/17 Forms HOME CARE DOCUMENTATION FORM, Work Instructions, Additional Instructions: Patient was seen and evaluated today in the emergency department fo medical care. Return to work on 09/09/2017. Please excuse. IMPORTANT VISIT INFORMATION Patient Instructions My [facility] Additional Instructions You were seen and evaluated today on an emergency basis only. This is not a substitute for, or an effort to provide, complete comprehensive medical care. It is not possible to recognize and treat all injuries or illnesses in a single emergency department visit. For this reason it is recommended that you followup with your primary care physician next week for recheck of your condition. Continue your inhalers at home. Take Levaquin 750 mg daily for the next 6 days. Take a Medrol Dosepak as prescribed Avoid unnecessary physical activity while on your antibiotics and steroids You are welcome to return to the emergency department anytime with new, worsening, or concerning symptoms. Work Instructions Additional Work Instructions: Patient was seen and evaluated today in the emergency department for medical care. Return to work on 09/09/2017. Please excuse. Problem Qualifiers
== END 2017-09-07 20:19 | disposition home or self-care (01) ==
LOC: C.EDB 15:08 → C.EDC 20:19
DX: J18.9 Pneumonia, unspecified organism (principal); J44.1 Chronic obstructive pulmonary disease with (acute) exacerbation; F17.200 Nicotine dependence, unspecified, uncomplicated; Z82.49 Family history of ischemic heart disease and other diseases of the circulatory system; Z82.3 Family history of stroke

== ENCOUNTER 2017-10-19 00:44 | Emergency (ER) | payer SELFPAY ==
[~2017-10-19] VITALS: Ht 144.8 cm; Wt 78.4 kg
[~2017-10-19 00:44] MED LIST changes: -AZIT500T PO; -PSEU60TA80 PO
[2017-10-19 00:55] VITALS: TEMP 36.6; Ht 144.8 cm; Wt 78.4 kg
[2017-10-19] MEDS ORDERED: TROLAMINE SALICYLATE 10% CRM 255 APPLN/85 GM TUBE EXT STA (01:25)
[2017-10-19] MEDS ORDERED: KETOROLAC TROMETHAMINE 60 MG/2 ML VIAL IM STA (01:25)
[2017-10-19] MEDS ORDERED: DEXAMETHASONE **PF** INJ 10 MG/ML VIAL PO ONE (01:30)
[2017-10-19] MEDS ORDERED: METH4PAK PO (01:59)
[2017-10-19] MEDS ORDERED: TRAMADOL HCL 50 MG HOME PACK PO ONE (02:45)
[2017-10-19 02:49] VITALS: BP 165/93; PULSE 76; O2SAT 96
--- NOTE | 2017-10-19 04:39 | EMERGENCY ROOM VISIT NOTE ---
History First contact with patient: 01:06 Chief Complaint: BACK PAIN Stated Complaint: BACK PAIN, SHOOTING DOWN LEGS History of Present Illness The patient is a 47 year old female who presents to the Emergency Room with complaints of low back pain that radiates to her thighs for the past few days described as aching, ranging in severity 6 out of 10 worse with movement and better with rest. Patient has a history of fibromyalgia and symptoms feel similar. Patient's tried Tylenol with minimal improvement of symptoms. She states she has done well with steroids in the past. Patient denies loss of bowel or bladder control, saddle anesthesia, fever, chills, abdominal pain, chest pain, dyspnea, leg weakness, IV drug abuse. Patient is able to ambulate. There was no trauma. She has had this pain before. Review of Systems An 10 system review of systems was completed with positives and pertinent negatives listed in the HPI. Past Medical/Surgical History Medical Problems: (1) Abdominal pain (2) Acute exacerbation of chronic low back pain (3) Asthma, Unspecified (4) Back pain (5) Back pain (6) Back pain (7) Back strain (8) Back strain (9) Chronic Obstructive Pulmonary Disease, Unspecified (10) Fibromyalgia (11) Fibromyalgia (12) Fracture of metatarsal bone (13) Generalized pain (14) Lumbago (15) Lupus anticoagulant disorder (16) Musculoskeletal chest pain (17) Nodule of chest wall (18) Splenomegaly (19) Swelling of both lower extremities (20) Thoracic back pain (21) Upper abdominal pain Family History Hypertension Stroke Social History Smoking Status: Current Every Day Smoker Alcohol Use: occasionally Marital Status: single, Housing Status: lives with family, other Occupation Status: employed Current/Historical Medications Scheduled Acetaminophen (Tylenol), 1,000 MG PO Q6H Methylprednisolone (Medrol Dosepak), 0 PO DAILY Omeprazole (Prilosec), 20 MG PO DAILY Scheduled PRN Albuterol Hfa (Ventolin Hfa), 2 PUFFS INH Q4H PRN for Wheezing Ipratropium-Albuterol (Duoneb), 1 TREATMENT INH QID PRN for SOB/Wheezing Physical Exam Vital Signs Date Time Temp Pulse Resp B/P (MAP) Pulse Ox O2 Delivery O2 Flow Rate FiO2 10/19/17 02:49 76 16 165/93 96 10/19/17 01:59 76 16 166/98 95 Room Air 10/19/17 00:55 36.6 111 18 165/97 94 Room Air Physical Exam VITALS: Vitals are noted on the nurse's note and reviewed by myself. Vital signs hypertensive GENERAL: Pleasant female able to ambulate on her toes and heels without difficulties, in no acute distress, nondiaphoretic, well-developed well- nourished. SKIN: Capillary reflex less than 2 seconds. HEENT: Normocephalic. PERRLA. EOMI. Nares patent. Mucous membranes moist. Neck is supple without nuchal rigidity. HEART: Regular rate and rhythm without murmurs gallops or rubs. LUNGS: Clear to auscultation bilaterally without wheezes, rales or rhonchi. No retractions or accessory muscle use. ABDOMEN: Positive bowel sounds x 4. Normal tympanic percussion. Soft, nontender, without masses or organomegaly. Stanley sign negative. No guarding or rebound tenderness. MUSCULOSKELETAL: No gross musculoskeletal defects. No pedal edema. No calf tenderness. No thoracic or lumbar tenderness on exam. Negative straight leg raise. Patient can walk on toes and heels. NEURO: Patient was alert and oriented to person place and time. Normal sensation to light and sharp touch. Deep tendon reflexes 2+ patella bilaterally. No focal neurological deficits. Medical Decision & Procedures Medications Administered Medications (Trade) Dose Ordered Sig/Lindsay Route Start Time Stop Time Status Last Admin Dose Admin Ketorolac Tromethamine (Toradol Inj) 60 mg NOW STAT IM 10/19/17 01:25 10/19/17 01:29 DC 10/19/17 01:35 60 MG Dexamethasone Sodium Phosphate (Dexamethasone Inj Pf) 10 mg NOW ONCE PO 10/19/17 01:30 10/19/17 01:31 DC 10/19/17 01:35 10 MG Trolamine Salicylate (Myoflex Cream) 1 appln NOW STAT EXT 10/19/17 01:25 10/19/17 01:29 DC 10/19/17 01:43 1 APPLN Tramadol HCl (Ultram Home Pack) 1 homepack UD ONCE PO 10/19/17 02:45 10/19/17 02:46 DC 10/19/17 02:46 1 HOMEPACK ED Course Prior records/ancillary studies reviewed. Triage Nursing notes reviewed. Additional history obtained from family The patient's history was concerning for back pain. Differential diagnosis: Etiologies such as musculoskeletal, disc herniation, fracture, aortic disease, metastatic disease, cord compression, discitis, infection, renal colic, gastrointestinal, acute exacerbation of chronic back pain, sciatica, cauda equina, as well as others were entertained. Physical findings: As above. No focal neurologic findings noted. ER treatment provided: Toradol, Decadron, Myoflex cream On reassessment the patient felt better. Diagnostics interpreted by me: Deferred This appears to be consistent with lumbar strain. Patient has had this problem before. Symptoms are similar. Patient was neurovascularly and neurologically intact. There was no trauma. She has no deficits. She was advised to take medications as directed, stretch the area out and follow-up family can a few days here in the ER sooner for severe back pain, inability to walk, numbness, tingling, worsening signs or symptoms or as needed. The patient's physical examination and detailed history did not reveal any red flags for back pain such as those listed in the differential diagnosis. Therefore advanced diagnostics and consultations were felt to be unwarranted. By the evaluation outlined above emergent etiologies such as fracture, aortic disease, metastatic disease, infection, renal colic, gastrointestinal, cord compression, cauda equina, as well as others were deemed relatively unlikely. The pt informed about the findings as listed above. All questions were answered and pleased with the treatment. Return instructions were outlined and the patient was discharged in stable condition. Outpatient prescription management: Medrol Dosepak Referral: The patient was referred back to primary care physician for follow-up in 2 to 3 days for a recheck of the current condition. The chart was completed utilizing [employer] Speech voice recognition software. Grammatical errors, random word insertions, pronoun errors, and incomplete sentences are an occassional consequence of this system due to software limitations, ambient noise, and hardware issues. Any formal questions or concerns about the content, text, or information contained within the body of this dictation should be directly addressed to the physician rehab care assistant for clarification. Medical Decision As above Medication Reconcilliation Current Medication List: was personally reviewed by me Blood Pressure Screening Patient's blood pressure: Elevated blood pressure Blood pressure disposition: Elevated BP felt to be situational Impression Primary Impression: Lumbar strain Departure Information Dispostion Home / Self-Care Condition GOOD Prescriptions Methylprednisolone (MEDROL DOSEPAK) 4 Mg [place] 0 PO DAILY, #1 PKT Prov: Iraida George .SHIRA 10/19/17 Forms HOME CARE DOCUMENTATION FORM, IMPORTANT VISIT INFORMATION Patient Instructions Back Pain - [facility], My [facility] Additional Instructions DO NOT drive, drink alcohol, operate machinery, or perform dangerous activities today. You were given medications in the ER that can affect your ability to safely function or operate a vehicle. Medrol Dosepak as directed. Ibuprofen(Motrin, Advil) may be used for fever or pain. Use 600mg every six hours as needed. Take with food. Avoid using more than 2400mg in a 24 hour period. Do not use 2400mg per day for more than three consecutive days without physician direction. Prolonged inappropriate use can lead to stomach upset or ulcers. This medication can be taken if you need to drive, work, or perform activities which may be dangerous when taking narcotic pain medication. (AND/OR) Acetaminophen(Tylenol) may be used for fever or pain. Use 1000mg every six hours as needed. Avoid using more than 3000mg in a 24 hour period. This medication can be taken if you need to drive, work, or perform activities which may be dangerous when taking narcotic pain medication. Rest and avoid heavy lifting until your symptoms resolve and then gradually return to full activity. A good rule of thumb is if it hurts your back to perform a certain activity, then it should be avoided until you are healthy again. A heating pad, warm compresses, or a hot shower may help with tight muscles and can be done several times a day as needed. Continue current medications. Return to the ER immediately for any numbness, tingling, severe pain, loss of control of your bowels or bladder, inability to walk, or as needed. Follow up with your primary care physician/orthopedics spine within 3-5 days for a recheck of your current condition. Problem Qualifiers Primary Impression: Lumbar strain Encounter type: initial encounter Qualified Codes: S39.012A - Strain of muscle, fascia and tendon of lower back, initial encounter
== END 2017-10-19 02:49 | disposition home or self-care (01) ==
LOC: C.EDB 00:46
DX: S39.012A Strain of muscle, fascia and tendon of lower back, initial encounter (principal); X58.XXXA Exposure to other specified factors, initial encounter; R03.0 Elevated blood-pressure reading, without diagnosis of hypertension; J44.9 Chronic obstructive pulmonary disease, unspecified; F17.200 Nicotine dependence, unspecified, uncomplicated; Z82.49 Family history of ischemic heart disease and other diseases of the circulatory system; Z82.0 Family history of epilepsy and other diseases of the nervous system

== ENCOUNTER 2023-01-14 08:51 | Inpatient (IN) ==
[2023-01-14] MEDS ORDERED: ceFAZolin 3,000 MG in DEXTROSE 5% 50 ML IV STA (09:04)
[2023-01-14] MEDS ORDERED: ceFAZolin 2000MG 2,000 MG/15 ML SYR IV ONE (09:15)
[2023-01-14] MEDS ORDERED: MoRPHine SULFATE 4 MG/ML 1 ML CARP\\VIAL IV STA (09:18)
[2023-01-14] MEDS ORDERED: ONDANSETRON INJ 2 MG/ML 2 ML VIAL IV STA (09:18)
[2023-01-14] MEDS ORDERED: MoRPHine SULFATE 4 MG/ML 1 ML CARP\\VIAL IV PRN (09:18)
--- NOTE | 2023-01-14 09:22 | Emergency Department Note ---
Impression & Plan Bacteremia, Cellulitis of finger of left hand, Cellulitis of hand, left ED Provider Note NAME: MARY LEACH AGE: 53 SEX: F : 1970 ARRIVES VIA: Walk-In INFORMANT: Patient, ED PROVIDER(S): German Schmidt DO CHIEF COMPLAINT: Hand infection HPI: The patient is a 53-year-old female who has a history of gout who presented to the emergency department for an evaluation of left hand infection. The patient has a history of gout and was diagnosed with an exacerbation of her gout when she started noticing swelling on her left middle finger over the course of the last 3 to 4 days. She was seen in our facility yesterday. This was felt to be more consistent with an infection. She was given a dose of IV antibiotics as well as started on oral antibiotics. She returns today because her blood cultures were positive for MSSA. The patient states she has very severe pain in the left hand. The hand is now swollen with tracking going up the arm. She does have a history of multiple medical conditions which could make her at risk for infection. She does take Plaquenil. The patient states the pain is severe. ROS: See above HPI for pertinent positives & negatives. A total of 10 systems re viewed and were otherwise negative. PAST MEDICAL HISTORY: See Below PAST SURGICAL HISTORY: See Below FAMILY HISTORY: See Below SOCIAL HISTORY: See Below HOME MEDICATIONS: See Below ALLERGIES: See Below VITALS: See Below PHYSICAL EXAMINATION: GENERAL: The patient is awake and alert. The patient is very anxious appearing and appears to be in significant pain. EYES: The conjunctivae are clear. The pupils are round and reactive. EARS, NOSE, MOUTH AND THROAT: The nose is without any evidence of any deformity. NECK: The neck is nontender and supple. RESPIRATORY: Normal respiratory effort is noted there is no evidence of wheezing rhonchi or rales CARDIOVASCULAR: Regular rate and rhythm noted there no murmurs rubs or gallops normal S1 normal S2. GASTROINTESTINAL: The abdomen is soft. Abdomen is nontender. MUSCULOSKELETAL/EXTREMITIES: There is no evidence of gross deformity full range of motion is noted in the hips and shoulders. SKIN: There is no obvious evidence of any rash. There are no petechiae, pallor or cyanosis noted. There was symmetrical swelling noted on the left third digit. There was a pustule noted on the dorsal aspect. The hand was also swollen. There is streaking going up the left forearm. NEUROLOGIC: Patient is awake alert and oriented x3 MEDICAL DECISION MAKING: The patient is a 53-year-old female who presented to the emergency department for an evaluation of left hand pain. The patient was seen in our facility yesterday. She was diagnosed with a significant left finger infection. She was started on antibiotics. She was called to come back to the emergency department because she had positive blood cultures. Because of the bacteremia as well as worsening symptoms the patient was treated with IV antibiotics. She was also treated with IV pain medication. A blood culture was sent today as well as a wound culture. The patient was reevaluated multiple times. I discussed her condition with the on-call [place] orthopedic surgeon. [facility] have agreed to evaluate the patient in the emergency department for further management and disposition. Lynne jasmine's repeat laboratory studies were very reassuring. Triage Nursing notes reviewed. Prior medical records reviewed Vital Signs: reviewed and remarkable for no significant abnormalities Differential diagnosis: Cellulitis, abscess, MRSA infection, DVT, necrotizing fasciitis, dermatitis, drug eruption, allergic reaction, as well as other pathologies. ER treatment provided: See below Diagnostics interpreted by me: ECG: EKG was obtained in the emergency department. My interpretation is sinus rhythm at 86 bpm. PVCs were noted. There is no acute ST segment abnormalities noted. Cardiac Monitoring: An order was placed for continuous cardiac monitoring. The monitor shows a rate of 77 bpm with sinus rhythm. Laboratory studies: As stated above and show below. Imaging studies: See below. Radiographic imaging was reviewed by myself Consultation(s): I discussed this case with Dr. Palacios who is on-call for orthopedics. He does recommend an MRI of the hand when this test will be available. Otherwise he will follow along in consultation. I discussed this case with Lillie who [facility]. Past Med/Surg History Medical History Abdominal pain Acute exacerbation of chronic low back pain Back pain Back strain COPD exacerbation Enteritis Fibromyalgia Fracture of metatarsal bone Generalized pain Headache Lumbar strain Musculoskeletal chest pain Nodule of chest wall Pneumonia Splenomegaly Swelling of both lower extremities Thoracic back pain Upper abdominal pain Surgical History H/O foot surgery clubbed foot repair as infant Social History Smoking Status: Current every day smoker Tobacco Type: Cigarettes Preferred Language: Andorran current occupational status: employed Feels Safe at Home: Yes Allergies Allergies Allergy/AdvReac Type Severity Reaction Status Date / Time diphenhydramine Allergy Unknown JITTERY Verified 01/14/23 10:28 milnacipran Allergy Unknown VOMITS Verified 01/14/23 10:28 Home Meds Home Medications Medication Instructions Recorded Confirmed hydroxychloroquine 200 mg tablet 200 mg PO HS 06/06/18 01/14/23 (Plaquenil) trazodone 50 mg tablet 100 mg PO HS 06/06/18 01/14/23 lansoprazole 30 mg capsule,delayed 30 mg PO QAM 12/29/20 01/14/23 release celecoxib 200 mg capsule 20 mg PO QAM 07/29/21 01/14/23 cyclobenzaprine 10 mg tablet 10 mg PO HS PRN Muscle Spasm 07/29/21 01/14/23 albuterol sulfate 90 mcg/actuation 2 puff inhalation Q4 PRN Wheezing 10/19/21 01/14/23 aerosol inhaler bupropion HCl 150 mg 24 hr tablet, 150 mg PO QAM 01/14/23 01/14/23 extended release fluticasone fur. 100 mcg-umeclid 1 inh inhalation QAM 01/14/23 01/14/23 62.5 mcg-vilant 25 mcg inhalat.powder (Trelegy Ellipta) methylprednisolone 4 mg tablets in 4 mg PO DIRECTED 01/14/23 01/14/23 a dose pack venlafaxine 37.5 mg 37.5 mg PO HS 01/14/23 01/14/23 capsule,extended release 24 hr Previous Rx's Medication Instructions Recorded oxycodone 5 mg capsule 5 mg PO Q6H PRN pain #14 caps 01/13/23 Results & Data (ED) Vital Signs Vital Signs - 24 hr 01/14/23 08:54 01/14/23 10:10 01/14/23 10:08 Temperature 36.2 C L Temperature Source Oral Pulse Rate 100 H 89 90 Pulse Rate from SpO2 Sensor 87 Pulse Rhythm Regular Pulse Strength Normal Respiratory Rate 22 22 Respiratory Effort / Characteristics Non-Labored Spontaneous Respiratory Depth Normal Respiratory Pattern Regular Blood Pressure 184/94 H Blood Pressure Mean 124 Blood Pressure Position Sitting Pulse Oximetry 93 93 Oxygen Delivery Method Room Air Room Air Sepsis Recent Fever Within 48 Hours No Sepsis New/Unexplained Change in Mental Status No Sepsis Action Taken by Nursing No Action Required 01/14/23 10:30 01/14/23 11:00 01/14/23 11:13 Temperature Temperature Source Pulse Rate 83 87 77 Pulse Rate from SpO2 Sensor 82 82 77 Pulse Rhythm Pulse Strength Respiratory Rate 21 17 17 Respiratory Effort / Characteristics Respiratory Depth Respiratory Pattern Blood Pressure 139/90 Blood Pressure Mean 106 Blood Pressure Position Pulse Oximetry 95 94 96 Oxygen Delivery Method Room Air Room Air Room Air Sepsis Recent Fever Within 48 Hours Sepsis New/Unexplained Change in Mental Status Sepsis Action Taken by Usp Medications Current Medication List: was personally reviewed by me Laboratory Data Attestation: I reviewed the patient's lab results. 01/14/23 09:56 01/14/23 09:56 Lab Results 01/14/23 01/14/23 01/14/23 Range/Units 09:26 09:56 09:56 WBC 10.35 (4.8-10.8) K/ul RBC 4.07 L (4.20-5.40) M/uL Hgb 12.6 (12.0-16.0) g/dl Hct 38.6 (37.0-47.0) % MCV 94.8 (80.0-100.0) fL MCH 31.0 (25.0-34.0) pg MCHC 32.6 (32.0-36.0) g/dL RDW Std Deviation 45.1 (36.4-46.3) fL RDW Coeff of Brisa 13.1 (11.5-14.5) % Plt Count 177 (130-400) K/uL MPV 10.9 (9.4-12.4) fL Immature Gran % (Auto) 0.4 % Neut % (Auto) 86.1 % Lymph % (Auto) 7.3 % Hardee % (Auto) 6.1 % Eos % (Auto) 0.0 % Baso % (Auto) 0.1 % Neut # (Auto) 8.91 H (1.40-6.50) K/uL Lymph # (Auto) 0.76 L (1.2-3.4) K/uL Hardee # (Auto) 0.63 H (0.11-0.59) K/uL Eos # (Auto) 0.00 (0-0.50) K/uL Baso # (Auto) 0.01 (0-0.2) K/uL Immature Gran # (Auto) 0.04 (0.01-0.20) K/uL PT (9.0-12.0) Seconds INR (0.9-1.1) APTT (21.0-31.0) Seconds PTT Ratio Sodium 137 (136-145) mmol/L Potassium 4.6 (3.5-5.1) mmol/L Chloride 104 (98-107) mmol/L Carbon Dioxide 27 (21-32) mmol/L Anion Gap 6 (3-11) BUN 14 (6-23) mg/dl Creatinine 0.75 (0.6-1.2) mg/dl Est Cr Clr Drug Dosing 78.7 ml/min Est GFR ( Amer) 104.7 ml/min Est GFR (Non-Af Amer) 90.4 ml/min BUN/Creatinine Ratio 18.7 (10-20) Glucose 121 H (70-99(Fasting)) mg/dl Lactate (0.4-2.0) mmol/L Calcium 9.5 (8.6-10.3) mg/dl Magnesium 2.0 (1.7-2.4) mg/dl Total Bilirubin 0.3 (0.2-1.0) mg/dl Direct Bilirubin 0.0 (0-0.2) mg/dl AST 16 (13-39) U/L ALT 33 (7-52) U/L Alkaline Phosphatase 72 (34-104) U/L Troponin I High Sens 3.8 (0-14) pg/ml C-Reactive Protein 6.56 H (0-0.5) mg/dl Total Protein 7.6 (6.0-8.3) gm/dl Albumin 4.3 (3.4-5.0) gm/dl Procalcitonin (0-0.5) ng/ml SARS-CoV-2, RNA, NAAT NEGATIVE (NEGATIVE) 01/14/23 01/14/23 01/14/23 Range/Units 09:56 09:56 09:56 WBC (4.8-10.8) K/ul RBC (4.20-5.40) M/uL Hgb (12.0-16.0) g/dl Hct (37.0-47.0) % MCV (80.0-100.0) fL MCH (25.0-34.0) pg MCHC (32.0-36.0) g/dL RDW Std Deviation (36.4-46.3) fL RDW Coeff of Brisa (11.5-14.5) % Plt Count (130-400) K/uL MPV (9.4-12.4) fL Immature Gran % (Auto) % Neut % (Auto) % Lymph % (Auto) % Hardee % (Auto) % Eos % (Auto) % Baso % (Auto) % Neut # (Auto) (1.40-6.50) K/uL Lymph # (Auto) (1.2-3.4) K/uL Hardee # (Auto) (0.11-0.59) K/uL Eos # (Auto) (0-0.50) K/uL Baso # (Auto) (0-0.2) K/uL Immature Gran # (Auto) (0.01-0.20) K/uL PT 11.1 (9.0-12.0) Seconds INR 1.0 (0.9-1.1) APTT 28.2 (21.0-31.0) Seconds PTT Ratio 1.0 Sodium (136-145) mmol/L Potassium (3.5-5.1) mmol/L Chloride (98-107) mmol/L Carbon Dioxide (21-32) mmol/L Anion Gap (3-11) BUN (6-23) mg/dl Creatinine (0.6-1.2) mg/dl Est Cr Clr Drug Dosing ml/min Est GFR ( Amer) ml/min Est GFR (Non-Af Amer) ml/min BUN/Creatinine Ratio (10-20) Glucose (70-99(Fasting)) mg/dl Lactate 1.3 (0.4-2.0) mmol/L Calcium (8.6-10.3) mg/dl Magnesium (1.7-2.4) mg/dl Total Bilirubin (0.2-1.0) mg/dl Direct Bilirubin (0-0.2) mg/dl AST (13-39) U/L ALT (7-52) U/L Alkaline Phosphatase (34-104) U/L Troponin I High Sens (0-14) pg/ml C-Reactive Protein (0-0.5) mg/dl Total Protein (6.0-8.3) gm/dl Albumin (3.4-5.0) gm/dl Procalcitonin < 0.05 (0-0.5) ng/ml SARS-CoV-2, RNA, NAAT (NEGATIVE) Administered Medications Morphine Sulfate (Morphine Sulfate 4 Mg/Ml 1 Ml Carp\Vial) 4 mg IV Q30M PRN PRN Reason: Pain Stop: 01/28/23 09:17 Last Admin: 01/14/23 11:23 Dose: 4 mg Documented By: APOLLO Discontinued Medications Cefazolin Sodium (Ancef 2000mg) 2,000 mg in 15 mls @ 3.75 mls/min IV NOW ONE Stop: 01/14/23 09:18 Last Admin: 01/14/23 11:16 Dose: 3.75 mls/min Documented By: ELLEN Morphine Sulfate (Morphine Sulfate 4 Mg/Ml 1 Ml Carp\Vial) 4 mg IV NOW STA Stop: 01/14/23 09:19 Last Admin: 01/14/23 10:08 Dose: 4 mg Documented By: APOLLO Ondansetron HCl (Ondansetron Inj 2 Mg/Ml 2 Ml Vial) 4 mg IV NOW STA Stop: 01/14/23 09:19 Last Admin: 01/14/23 10:06 Dose: 4 mg Documented By: APOLLO Imaging Data Attestation: I personally reviewed and interpreted this imaging study as follows: My Impression: 1 view chest x-ray was obtained in the emergency department. My interpretation is no free air or definite infiltrate, final report below. Radiologist's Impression: Chest X-Ray 01/14/23 09:05 SINGLE VIEW CHEST CLINICAL HISTORY: Sepsis. FINDINGS: An AP, portable, upright chest radiograph is compared to study dated 10/19/2021. Correlation is made with chest CT dated 08/24/2016. The cardiomediastinal silhouette is unremarkable. There is mild bibasilar atelectasis. No airspace consolidation or large pleural effusion is identified. No pneumothorax is seen. The bony thorax is grossly intact. IMPRESSION: No acute cardiopulmonary abnormality. ACT 112: Negative or not required by law. Electronically signed by: Rudi Burrell M.D. 01/14/2023 9:34 AM Discharge Plan Visit Data Chief Complaint: Finger Pain Stated Complaint: INFECTED FINGER ED Provider: German Schmidt Discharge Problem: Bacteremia, Cellulitis of finger of left hand, Cellulitis of hand, left Patient Disposition: Being Evaluated by Hospitalist Discharge Instructions Interventions: ED Discharge Assessment Last Done: 01/14/23 11:51 Forms Stand Alone Forms: My [facility] [employer] Prescriptions Prescriptions: No Action trazodone 50 mg Tablet 100 mg PO HS hydroxychloroquine [Plaquenil] 200 mg Tablet 200 mg PO HS celecoxib 200 mg capsule 20 mg PO QAM cyclobenzaprine 10 mg tablet 10 mg PO HS PRN (Reason: Muscle Spasm) venlafaxine 37.5 mg capsule,extended release 24hr 37.5 mg PO HS methylprednisolone 4 mg tablets,dose pack 4 mg PO DIRECTED Rx Instructions: Start Date 01/12/23 - End Date 01/17/23 bupropion HCl 150 mg tablet extended release 24 hr 150 mg PO QAM Trelegy Ellipta 100-62.5-25 mcg blister with device 1 inh INHALATION QAM lansoprazole 30 mg capsule,delayed release(DR/EC) 30 mg PO QAM albuterol sulfate 90 mcg/actuation HFA aerosol inhaler 2 puff INHALATION Q4 PRN (Reason: Wheezing) oxycodone 5 mg capsule 5 mg PO Q6H PRN (Reason: pain) Qty: 14 0RF Referrals Referrals: Alva Burns DO [Primary Care Provider] -
--- NOTE | 2023-01-14 09:36 | XRay Report ---
SINGLE VIEW CHEST CLINICAL HISTORY: Sepsis. FINDINGS: An AP, portable, upright chest radiograph is compared to study dated 10/19/2021. Correlation is made with chest CT dated 08/24/2016. The cardiomediastinal silhouette is unremarkable. There is mi ld bibasilar atelectasis. No airspace consolidation or large pleural effusion is identified. No pneum othorax is seen. The bony thorax is grossly intact. IMPRESSION: No acute cardiopulmonary abnormality. ACT 112: Negative or not required by law. Electronically signed by: Rudi Burrell M.D. 01/14/2023 9:34 AM
[2023-01-14 10:17] LABS: Basophils # (auto) 0.01 K/uL (0-0.2); Basophils % (auto) 0.1 %; Hematocrit (blood only) 38.6 % (37.0-47.0); Hemoglobin 12.6 g/dl (12.0-16.0); Immature Granulocytes # (auto) 0.04 K/uL (0.01-0.20); Immature Granulocytes % (auto) 0.4 %; Lymphocytes # (auto) 0.76 K/uL (1.2-3.4); Lymphocytes % (auto) 7.3 %; Mean Corpuscular Hgb Conc 32.6 g/dL (32.0-36.0); Mean Corpuscular Volume 94.8 fL (80.0-100.0); Mean Platelet Volume 10.9 fL (9.4-12.4); Monocytes # (auto) 0.63 K/uL (0.11-0.59); Monocytes % (auto) 6.1 %; Neutrophils # (auto) 8.91 K/uL (1.40-6.50); Neutrophils % (auto) 86.1 %; Platelet Count 177 K/uL (130-400); RDW Coefficient of Variation 13.1 % (11.5-14.5); RDW Standard Deviation 45.1 fL (36.4-46.3); Red Blood Count 4.07 M/uL (4.20-5.40); White Blood Count 10.35 K/ul (4.8-10.8)
[2023-01-14 10:29] LABS: Albumin Level 4.3 gm/dl (3.4-5.0); BUN Creatinine Ratio 18.7 (10-20); Bilirubin,Total 0.3 mg/dl (0.2-1.0); C Reactive Protein 6.56 mg/dl (0-0.5); Calcium 9.5 mg/dl (8.6-10.3); Creatinine Clr Calc Pharmacy 78.7 ml/min; Est GFR (African American) 104.7 ml/min; Est GFR (Non-African American) 90.4 ml/min; Potassium 4.6 mmol/L (3.5-5.1); Total Protein 7.6 gm/dl (6.0-8.3)
[2023-01-14 10:34] LABS: Troponin I High Sensitivity 3.8 pg/ml (0-14)
[2023-01-14 10:38] LABS: Partial Thromboplastin Time 28.2 Seconds (21.0-31.0); Prothrombin Time 11.1 Seconds (9.0-12.0)
[2023-01-14] MEDS ORDERED: VANCOMYCIN CONSULT ACTIVE PRN (11:24)
[2023-01-14] MEDS ORDERED: PIPERACILLIN/TAZOBACTAM 4.5 GM in DEXTROSE 5% 100 ML IV SCH (11:30)
[2023-01-14] MEDS ORDERED: GADOBUTROL 7.5ML VIAL IV ONE (12:24)
[2023-01-14] MEDS ORDERED: ceFAZolin 2000MG 2,000 MG/15 ML SYR IV SCH (12:30)
[2023-01-14] MEDS ORDERED: CYCLOBENZAPRINE HCL 10 MG TAB PO PRN (12:42)
[2023-01-14] MEDS ORDERED: AMPICILLIN/SULBACTAM SOD 3,000 MG in 0.9 % SODIUM CHLORIDE 100 ML IV SCH (13:00)
[2023-01-14] MEDS: MoRPHine SULFATE 4 MG/ML 1 ML CARP\\VIAL IV PRN (13:02)
[2023-01-14 13:20] LABS: Appearance Urine Clear (Clear); Bilirubin Urine Negative (Negative); Blood Urine Negative (Negative); Color Urine Yellow; Glucose Urine UA Negative (Negative); Ketones Urine Negative (Negative); Leukocyte Esterase Urine Negative (Negative); Nitrite Urine Negative (Negative); Protein Urine Negative (Negative); Specific Gravity Urine 1.009 (1.000-1.030); Urobilinogen Urine Negative (Negative)
--- NOTE | 2023-01-14 13:33 | History & Physical Report ---
Date of Service January 14, 2023 Assessment & Plan (1) Cellulitis of finger of left hand: (2) MSSA bacteremia: Plan: Admit to [facility] Patient presenting from home after 3/4 blood cultures drawn in ED yesterday returned positive for MSSA. Left third finger cellulitis/wound present --possible cat bite per patient Left hand MRI S/p IV cefazolin in the ED, given significance of infection and history of cat bite, will start on IV Zosyn Echocardiogram Ortho consult ID consult (3) COPD (chronic obstructive pulmonary disease): Plan: Appears stable, no signs of acute exacerbation Continue home inhalers (4) Lupus anticoagulant disorder: Plan: On Plaquenil (5) PTSD (post-traumatic stress disorder): (6) Depression: (7) Anxiety: (8) Fibromyalgia: Plan: Stable, continue home meds DVT PROPHYLAXIS SCDs due to possible need for surgical procedure Patient seen in collaboration with Dr. Thurston. I spent a total of 75 minutes coordinating, documenting, and providing care for this patient excluding time spent in the performance of separately billed services. This included personally reviewing all current laboratories and imaging studies, medication reconciliation, outpatient chart review, and discussion with specialists. Admission and Anticipated Discharge Date Admission Date: January 14, 2023 History of Present Illness Chief Complaint: Called back to ED for positive blood cultures Primary Care Provider: Alva Burns DO 53-year-old female with PMH COPD, GERD, endometrial cancer s/p hysterectomy, fibromyalgia, osteoarthritis, lupus anticoagulant on Plaquenil, anxiety, depres priyank, PTSD, and other problems listed below who presents to the ED after blood cultures obtained yesterday returned positive. History obtained from the patient and review outpatient PCP records. Patient reports that 4 days ago, she developed a blister on her left third finger. She is somewhat a poor historian. She thinks she may have been bitten by her cat and she was also working in her garden and thinks she may have been bitten by a spider. Patient was seen at [facility] on 01/12 and diagnosed with possible gout. Patient was given a Medrol Dosepak. Patient was then seen in the ED on 01/13 for worsening pain and swelling. She was given IV Rocephin and discharged on Augmentin. Blood cultures were obtained and 3/4 returned positive for MSSA. Patient was called to return back to the ED today. Patient reports ongoing pain, swelling, redness in the left third finger. Redness is starting to streak up the dorsal aspect of the left hand. Patient denies fevers and chills. No chest pain or shortness of breath. Denies lightheadedness, dizziness, diaphoresis, syncopal events. No abdominal pain, nausea, vomiting, diarrhea. Denies urinary symptoms. In the ED, patient is hemodynamically stable, labs are unremarkable. Bedside I&D was performed and wound culture was sent. Patient was given IV cefazolin. Allergies Allergy/AdvReac Type Severity Reaction Status Date / Time diphenhydramine Allergy Unknown JITTERY Verified 01/14/23 10:28 milnacipran Allergy Unknown VOMITS Verified 01/14/23 10:28 Home Medications Medication Instructions Recorded Confirmed Type hydroxychloroquine 200 mg tablet 200 mg PO HS 06/06/18 01/14/23 History (Plaquenil) trazodone 50 mg tablet 100 mg PO HS 06/06/18 01/14/23 History lansoprazole 30 mg capsule,delayed 30 mg PO QAM 12/29/20 01/14/23 History release celecoxib 200 mg capsule 20 mg PO QAM 07/29/21 01/14/23 History cyclobenzaprine 10 mg tablet 10 mg PO HS PRN Muscle Spasm 07/29/21 01/14/23 History albuterol sulfate 90 mcg/actuation 2 puff inhalation Q4 PRN Wheezing 10/19/21 01/14/23 History aerosol inhaler oxycodone 5 mg capsule 5 mg PO Q6H PRN pain #14 caps 01/13/23 01/14/23 Rx bupropion HCl 150 mg 24 hr tablet, 150 mg PO QAM 01/14/23 01/14/23 History extended release fluticasone fur. 100 mcg-umeclid 1 inh inhalation QAM 01/14/23 01/14/23 History 62.5 mcg-vilant 25 mcg inhalat.powder (Trelegy Ellipta) methylprednisolone 4 mg tablets in 4 mg PO DIRECTED 01/14/23 01/14/23 History a dose pack venlafaxine 37.5 mg 37.5 mg PO HS 01/14/23 01/14/23 History capsule,extended release 24 hr Past Med/Surg History Medical History Anxiety COPD (chronic obstructive pulmonary disease) Depression Endometrial cancer Fibromyalgia GERD (gastroesophageal reflux disease) Lupus anticoagulant disorder PTSD (post-traumatic stress disorder) Surgical History H/O foot surgery clubbed foot repair as History of ventral hernia repair S/P abdominal hysterectomy Social History Smoking Status: Current every day smoker Tobacco Type: Cigarettes Do You Dip or Chew Tobacco: No; Hx Alcohol Use: Yes Alcohol type: hard liquor Hx Substance Use: Yes Last Used Substance Other:: 27 years ago Preferred Language: Yoruba Communication Ability: Effective Environmental Protection Specialist Required: No Beliefs That Will Affect Care: None Current Living Situation: Parent current occupational status: employed Other Information That Helps Us Care for You: No Feels Safe at Home: Yes Safety Concerns: Feels Safe At This Time Assistive Devices: Cane Physical Exam Constitutional: WD/WN, vitals as above Eyes: PERRL, conjunctivae normal, anicteric sclerae ENMT: external ear and nose normal, oropharynx normal Respiratory: normal respiratory effort, lungs clear to auscultation Cardiovascular: Rate/Rhythm: regular rate and regular rhythm Vessels: normal peripheral pulses Extremities: no edema Gastrointestinal (Abdomen): normal bowel sounds, soft, nontender, no hepatosplenomegaly Musculoskeletal: no cyanosis or clubbing, extremities motor strength 5/5 Left third finger with significant edema and erythema streaking up the dorsal aspect of the left hand, small open wound noted to the distal aspect of the left third finger with some purulent drainage present, CSM checks intact Skin: no rashes, warm and dry Neurologic: PERRL, EOMI, accommodation nl, no face palsy, no dysarthria Psychiatric: A+Ox3, euthymic affect Results & Data Results & Data Vital Signs (Past 12 Hours) Vital Signs Temp Pulse Pulse Resp BP BP Pulse Ox 01/14/23 12:46 36.8 C 78 18 163/96 H 93 01/14/23 11:13 77 17 139/90 96 01/14/23 11:00 87 17 94 01/14/23 10:30 83 21 95 01/14/23 10:08 90 22 93 01/14/23 10:10 89 01/14/23 08:54 36.2 C L 100 H 22 184/94 H 93 O2 Del Method 01/14/23 12:46 Room Air 01/14/23 11:13 Room Air 01/14/23 11:00 Room Air 01/14/23 10:30 Room Air 01/14/23 10:08 Room Air 01/14/23 10:10 01/14/23 08:54 Room Air Laboratory Results Short CBC 01/14/23 Range/Units 09:56 WBC 10.35 (4.8-10.8) K/ul Hgb 12.6 (12.0-16.0) g/dl Hct 38.6 (37.0-47.0) % Plt Count 177 (130-400) K/uL BMP 01/14/23 09:56 Sodium 137 Potassium 4.6 Chloride 104 Carbon Dioxide 27 BUN 14 Creatinine 0.75 Glucose 121 H Calcium 9.5 Liver Function 01/14/23 Range/Units 09:56 Total Bilirubin 0.3 (0.2-1.0) mg/dl Direct Bilirubin 0.0 (0-0.2) mg/dl AST 16 (13-39) U/L ALT 33 (7-52) U/L Alkaline Phosphatase 72 (34-104) U/L Albumin 4.3 (3.4-5.0) gm/dl Urine 01/14/23 Range/Units 12:55 Urine Color Yellow Urine Appearance Clear (Clear) Urine pH 6.0 (4.5-7.5) Ur Specific [place] 1.009 (1.000-1.030) Urine Protein Negative (Negative) Urine Glucose (UA) Negative (Negative) Diagnostic Findings Chest X-Ray 01/14/23 09:05 SINGLE VIEW CHEST CLINICAL HISTORY: Sepsis. FINDINGS: An AP, portable, upright chest radiograph is compared to study dated 10/19/2021. Correlation is made with chest CT dated 08/24/2016. The cardiomediastinal silhouette is unremarkable. There is mild bibasilar atelectasis. No airspace consolidation or large pleural effusion is identified. No pneumothorax is seen. The bony thorax is grossly intact. IMPRESSION: No acute cardiopulmonary abnormality. ACT 112: Negative or not required by law. Electronically signed by: Rudi Burrell M.D. 01/14/2023 9:34 AM Code Status & VTE Plan VTE Prophylaxis Plan VTE Prophylaxis will be ordered: Yes Supervising Physician Co-Signing Physician Notes Pt seen and examined by myself, Dana Thurston MD on the day of service. Care was coordinated with AMITA Ohara. Please refer to her note for additional information. 53yoF presenting for admission after having positive blood cultures associated with a hand infection. States that she is unsure of the cause, possibly related to a spider vs. cat bite, used a needle at home to "pop" the lesions last week. Denies injecting any illicit medications into hand, notes the possibility of a heart murmur, denies joint replacements anywhere. States she has a Hx of hidradenitis, unsure of her chcf treatment for it. Pt alert and oriented. L hand with redness, finder swollen with pus-like material visible. Decreased strength. Blood cultures growing gram positive cocci, wound culture currently pending. Noted [employer] results of MSSA. Echo pending, ID consult. Given pt's uncertain Hx, will treat broadly with Zosyn and narrow based on specificity of blood and wound cultures. Otherwise as above.
[2023-01-14] MEDS: oxyCODONE HCL IR 5 MG TAB (IMMEDIATE RELEASE) PO PRN ×2 (14:46→22:49)
[2023-01-14] MEDS: ACETAMINOPHEN 325 MG TAB PO PRN ×2 (15:11→20:12)
--- NOTE | 2023-01-14 15:29 | Magnetic Resonance Report ---
MRI OF THE LEFT HAND COMBO CLINICAL HISTORY: Infection. COMPARISON STUDY: Radiographs of the left hand dated 01/13/2023. TECHNIQUE: MRI of the left hand is performed utilizing various T1 and T2-weighted sequences in the ax ial, sagittal, and coronal planes. Contrast-enhanced sequences were acquired following the IV adminis tration of 6.5 cc of Gadavist. The examination is severely compromised by motion artifact. FINDINGS: There is no MRI evidence of fracture or osteomyelitis. Mild degenerative change advanced ty pically degenerative marrow edema is seen throughout the wrist and hand. Findings of erosive osteoart hritis in the third through fifth distal interphalangeal joints was better assessed on yesterday's x- rays. There is soft tissue edema identified in the fingers, greatest in the third digit where there i s subcutaneous fluid. No organized/drainable fluid collection is seen. The visualized flexor and exte nsor tendons are grossly intact. Significant dorsal soft tissue edema is noted. IMPRESSION: 1. Severely motion compromised examination. 2. No acute bony abnormality is identified. 3. Soft tissue edema is present in the fingers, greatest in third digit where there is subcutaneous f luid. Correlate clinically. 4. No organized/drainable fluid collection is identified. 5. Arthritic change as above. Findings of erosive arthritis were better characterized on yesterday's x-rays. Electronically signed by: Rudi Burrell M.D. 01/14/2023 3:28 PM
[2023-01-14] MEDS ORDERED: PIPERACILLIN/TAZOBACTAM 4.5 GM (over 30 mins) IV ONE (16:00)
[2023-01-14] MEDS ORDERED: KETOROLAC TROMETHAMINE 15 MG/ML VIAL IV ONE (16:03)
[2023-01-14] MEDS: NICOTINE 14 MG/24 HR PATCH TD SCH (16:26)
--- NOTE | 2023-01-14 17:08 | Orthopedic Consultation ---
Date of Consultation January 14, 2023 Assessment & Plan (1) Cellulitis of finger of left hand: Left third finger infection. I will discuss case with Dr. Palacios who is on-call. Continue IV antibiotics at this time. Keep the left hand elevated above heart level as best as possible. Keep wound covered for drainage reasons. Follow blood cultures for now. We will see how she responds to her antibiotics. I discussed with the patient that if she has limited or no response, that the possibility of an irr igation and debridement might be possible. We will continue to follow. History of Present Illness Reason for Consultation: Left third finger infection Attending Physician: Dana Thurston MD History of Present Illness 53-year-old female admitted with with an infection of her left third finger. Past medical history of COPD, GERD, endometrial cancer s/p hysterectomy, fibromyalgia, osteoarthritis, lupus anticoagulant on Plaquenil, anxiety, depression, PTSD. Patient states that it started out which she feels is a spider bite or possibly a bite from her cat but is unsure and then gradually worsened. She was seen in an outpatient [facility] facility. She was given a Medrol Dosepak thinking it was possibly gout with previous history of gout. This was on the of this month. Patient states that her finger continued to worsen. She came to the emergency room yesterday. She was given 1 dose of Rocephin feeling that it was more like infection and also sent home with Augmentin. In the meantime blood cultures were taken. Her blood cultures were positive and she was called back to the hospital to be admitted. Currently the patient states that she has been getting some relief with the antibiotics as well as the pain medications. She has no new complaints at this time Allergies Allergy/AdvReac Type Severity Reaction Status Date / Time diphenhydramine Allergy Unknown JITTERY Verified 01/14/23 10:28 milnacipran Allergy Unknown VOMITS Verified 01/14/23 10:28 Home Medications Medication Instructions Recorded Confirmed Type hydroxychloroquine 200 mg tablet 200 mg PO HS 06/06/18 01/14/23 History (Plaquenil) trazodone 50 mg tablet 100 mg PO HS 06/06/18 01/14/23 History lansoprazole 30 mg capsule,delayed 30 mg PO QAM 12/29/20 01/14/23 History release celecoxib 200 mg capsule 20 mg PO QAM 07/29/21 01/14/23 History cyclobenzaprine 10 mg tablet 10 mg PO HS PRN Muscle Spasm 07/29/21 01/14/23 History albuterol sulfate 90 mcg/actuation 2 puff inhalation Q4 PRN Wheezing 10/19/21 01/14/23 History aerosol inhaler oxycodone 5 mg capsule 5 mg PO Q6H PRN pain #14 caps 01/13/23 01/14/23 Rx bupropion HCl 150 mg 24 hr tablet, 150 mg PO QAM 01/14/23 01/14/23 History extended release fluticasone fur. 100 mcg-umeclid 1 inh inhalation QAM 01/14/23 01/14/23 History 62.5 mcg-vilant 25 mcg inhalat.powder (Trelegy Ellipta) methylprednisolone 4 mg tablets in 4 mg PO DIRECTED 01/14/23 01/14/23 History a dose pack venlafaxine 37.5 mg 37.5 mg PO HS 01/14/23 01/14/23 History capsule,extended release 24 hr Patient History Medical History Anxiety COPD (chronic obstructive pulmonary disease) Depression Endometrial cancer Fibromyalgia GERD (gastroesophageal reflux disease) Lupus anticoagulant disorder PTSD (post-traumatic stress disorder) Surgical History H/O foot surgery clubbed foot repair as History of ventral hernia repair S/P abdominal hysterectomy Social History Smoking Status: Current every day smoker Tobacco Type: Cigarettes Do You Dip or Chew Tobacco: No; Hx Alcohol Use: Yes Alcohol type: hard liquor Hx Substance Use: Yes Last Used Substance Other:: 27 years ago Preferred Language: German Communication Ability: Effective Finance Administrator Required: No Beliefs That Will Affect Care: None Current Living Situation: Parent current occupational status: employed Other Information That Helps Us Care for You: No Feels Safe at Home: Yes Safety Concerns: Feels Safe At This Time Assistive Devices: Cane Physical Exam Physical Exam: Patient is a 53-year-old white female who appears older than her stated age. She is alert and oriented x3. No acute distress. Pleasant and cooperative. On examination of her left third finger she has noted swelling over the DIP joint with moderate erythema and also a small puncture wound over the lateral aspect with a small amount of white debris around it. She has no active drainage at this time. She has moderate pain on palpation and I am unable to express any fluid at this time. She is unable to bend the finger at the DIP joint but is able to bend at the PIP joint as well as the MP joint. Capillary refill is less than 2 seconds. The erythema travels around the finger circumferentially. She has no pain on palpation of the dorsum of the MP joint. No pain over the dorsum of the hand. She has good range of motion of her left wrist at this time without pain. I cannot appreciate any striations going up the forearm. She does have erythema over the dorsum of the hand. She has pain with mostly with flexion of the finger at this time and not so much extension. Extension pain is mainly at the DIP joint. With passive extension of the finger, she does not have increased pain radiating up into the hand. She has mild pain on palpation over the flexor tendon surface of the finger to the MP joint. The other fingers do not seem to be involved at this time. Results & Data Vital Signs (Past 12 Hours) Vital Signs Temp Pulse Pulse Resp BP BP Pulse Ox 01/14/23 15:06 36.7 C 87 18 172/100 H 98 01/14/23 12:35 01/14/23 12:46 36.8 C 78 18 163/96 H 93 01/14/23 11:13 77 17 139/90 96 01/14/23 11:00 87 17 94 01/14/23 10:30 83 21 95 01/14/23 10:08 90 22 93 01/14/23 10:10 89 01/14/23 08:54 36.2 C L 100 H 22 184/94 H 93 O2 Del Method 01/14/23 15:06 Room Air 01/14/23 12:35 Room Air 01/14/23 12:46 Room Air 01/14/23 11:13 Room Air 01/14/23 11:00 Room Air 01/14/23 10:30 Room Air 01/14/23 10:08 Room Air 01/14/23 10:10 01/14/23 08:54 Room Air Laboratory Results Laboratory Results WBC 10.35 K/ul (4.8-10.8) 01/14/23 09:56 RBC 4.07 M/uL (4.20-5.40) L 01/14/23 09:56 Hgb 12.6 g/dl (12.0-16.0) 01/14/23 09:56 Hct 38.6 % (37.0-47.0) 01/14/23 09:56 MCV 94.8 fL (80.0-100.0) 01/14/23 09:56 MCH 31.0 pg (25.0-34.0) 01/14/23 09:56 MCHC 32.6 g/dL (32.0-36.0) 01/14/23 09:56 RDW Std Deviation 45.1 fL (36.4-46.3) 01/14/23 09:56 RDW Coeff of Brisa 13.1 % (11.5-14.5) 01/14/23 09:56 Plt Count 177 K/uL (130-400) 01/14/23 09:56 MPV 10.9 fL (9.4-12.4) 01/14/23 09:56 Immature Gran % (Auto) 0.4 % 01/14/23 09:56 Neut % (Auto) 86.1 % 01/14/23 09:56 Lymph % (Auto) 7.3 % 01/14/23 09:56 [place] % (Auto) 6.1 % 01/14/23 09:56 Eos % (Auto) 0.0 % 01/14/23 09:56 Baso % (Auto) 0.1 % 01/14/23 09:56 Neut # (Auto) 8.91 K/uL (1.40-6.50) H 01/14/23 09:56 Lymph # (Auto) 0.76 K/uL (1.2-3.4) L 01/14/23 09:56 [place] # (Auto) 0.63 K/uL (0.11-0.59) H 01/14/23 09:56 Eos # (Auto) 0.00 K/uL (0-0.50) 01/14/23 09:56 Baso # (Auto) 0.01 K/uL (0-0.2) 01/14/23 09:56 Immature Gran # (Auto) 0.04 K/uL (0.01-0.20) 01/14/23 09:56 PT 11.1 Seconds (9.0-12.0) 01/14/23 09:56 INR 1.0 (0.9-1.1) 01/14/23 09:56 APTT 28.2 Seconds (21.0-31.0) 01/14/23 09:56 PTT Ratio 1.0 01/14/23 09:56 Sodium 137 mmol/L (136-145) 01/14/23 09:56 Potassium 4.6 mmol/L (3.5-5.1) 01/14/23 09:56 Chloride 104 mmol/L (98-107) 01/14/23 09:56 Carbon Dioxide 27 mmol/L (21-32) 01/14/23 09:56 Anion Gap 6 (3-11) 01/14/23 09:56 BUN 14 mg/dl (6-23) 01/14/23 09:56 Creatinine 0.75 mg/dl (0.6-1.2) 01/14/23 09:56 Est Cr Clr Drug Dosing 78.7 ml/min 01/14/23 09:56 Est GFR ( Amer) 104.7 ml/min 01/14/23 09:56 Est GFR (Non-Af Amer) 90.4 ml/min 01/14/23 09:56 BUN/Creatinine Ratio 18.7 (10-20) 01/14/23 09:56 Glucose 121 mg/dl (70-99(Fasting)) H 01/14/23 09:56 Lactate 1.3 mmol/L (0.4-2.0) 01/14/23 09:56 Calcium 9.5 mg/dl (8.6-10.3) 01/14/23 09:56 Magnesium 2.0 mg/dl (1.7-2.4) 01/14/23 09:56 Total Bilirubin 0.3 mg/dl (0.2-1.0) 01/14/23 09:56 Direct Bilirubin 0.0 mg/dl (0-0.2) 01/14/23 09:56 AST 16 U/L (13-39) 01/14/23 09:56 ALT 33 U/L (7-52) 01/14/23 09:56 Alkaline Phosphatase 72 U/L (34-104) 01/14/23 09:56 Troponin I High Sens 3.8 pg/ml (0-14) 01/14/23 09:56 C-Reactive Protein 6.56 mg/dl (0-0.5) H 01/14/23 09:56 Total Protein 7.6 gm/dl (6.0-8.3) 01/14/23 09:56 Albumin 4.3 gm/dl (3.4-5.0) 01/14/23 09:56 Procalcitonin < 0.05 ng/ml (0-0.5) 01/14/23 09:56 Urine Color Yellow 01/14/23 12:55 Urine Appearance Clear (Clear) 01/14/23 12:55 Urine pH 6.0 (4.5-7.5) 01/14/23 12:55 Ur Specific [place] 1.009 (1.000-1.030) 01/14/23 12:55 Urine Protein Negative (Negative) 01/14/23 12:55 Urine Glucose (UA) Negative (Negative) 01/14/23 12:55 Urine Ketones Negative (Negative) 01/14/23 12:55 Urine Blood Negative (Negative) 01/14/23 12:55 Urine Nitrite Negative (Negative) 01/14/23 12:55 Urine Bilirubin Negative (Negative) 01/14/23 12:55 Urine Urobilinogen Negative (Negative) 01/14/23 12:55 Ur Leukocyte Esterase Negative (Negative) 01/14/23 12:55 SARS-CoV-2, RNA, NAAT NEGATIVE (NEGATIVE) 01/14/23 09:26 Impressions Chest X-Ray 01/14/23 09:05 SINGLE VIEW CHEST CLINICAL HISTORY: Sepsis. FINDINGS: An AP, portable, upright chest radiograph is compared to study dated 10/19/2021. Correlation is made with chest CT dated 08/24/2016. The cardiomediastinal silhouette is unremarkable. There is mild bibasilar atelectasis. No airspace consolidation or large pleural effusion is identified. No pneumothorax is seen. The bony thorax is grossly intact. IMPRESSION: No acute cardiopulmonary abnormality. ACT 112: Negative or not required by law. Electronically signed by: Rudi Burrell M.D. 01/14/2023 9:34 AM Hand MRI 01/14/23 10:32 MRI OF THE LEFT HAND COMBO CLINICAL HISTORY: Infection. COMPARISON STUDY: Radiographs of the left hand dated 01/13/2023. TECHNIQUE: MRI of the left hand is performed utilizing various T1 and T2- weighted sequences in the axial, sagittal, and coronal planes. Contrast-enhanced sequences were acquired following the IV administration of 6.5 cc of Gadavist. The examination is severely compromised by motion artifact. FINDINGS: There is no MRI evidence of fracture or osteomyelitis. Mild degenerative change advanced typically degenerative marrow edema is seen throughout the wrist and hand. Findings of erosive osteoarthritis in the third through fifth distal interphalangeal joints was better assessed on yesterday's x-rays. There is soft tissue edema identified in the fingers, greatest in the third digit where there is subcutaneous fluid. No organized/drainable fluid collection is seen. The visualized flexor and extensor tendons are grossly intact. Significant dorsal soft tissue edema is noted. IMPRESSION: 1. Severely motion compromised examination. 2. No acute bony abnormality is identified. 3. Soft tissue edema is present in the fingers, greatest in third digit where there is subcutaneous fluid. Correlate clinically. 4. No organized/drainable fluid collection is identified. 5. Arthritic change as above. Findings of erosive arthritis were better characterized on yesterday's x-rays. Electronically signed by: Rudi Burrell M.D. 01/14/2023 3:28 PM LEFT HAND 3 VIEWS CLINICAL HISTORY: Middle finger pain and swelling. FINDINGS: 3 views of the left hand are obtained. No prior studies are available for comparison at the time of dictation. The skeletal structures are osteopenic. No fracture is seen. There is moderate osteoarthritic change at the first carpometacarpal articulation. Osteoarthritic change is seen throughout the interphalangeal joints, distal greater than proximal. There is erosive osteoarthritis of the third through fifth interphalangeal joints. Soft tissue swelling is present in the fingers, greatest in the third digit. IMPRESSION: 1. No acute bony abnormality is identified. 2. Osteopenia and arthritic changes above. 3. Soft tissue swelling is noted in the fingers. Electronically signed by: Rudi Burrell M.D. 01/13/2023 2:09 PM Dictated:01/13/23 1407 Diagnostic Findings [address] [place] [address] / Director: Vidal Stanton M.D. Clinical Laboratory Report Name: MARY LEACH Acct: [id number] Status: [facility] [place] 1970 [facility] [place]: 01/13/23 Age: 53 Sex: F Dis Date: Loc: Emergency Department Spec: [id number] Collected: 01/13/23-125 Received: 01/13/23-[address]: Stuart Shen M.D. Source: Blood OV Order: Ordered: Blood Culture Comments: Comment Default is separate sites, same time Procedure Result Verified Site Blood Culture Aerobic Preliminary 01/14/23-620 Organism 1 Gram positive cocci clusters Sens Sensitivities Dependent on Further Identification GRAM STAIN RESULTS sent via [employer] to WENDY SHEN On 01/14/23 at 0616 by Sharon Washington. Confirmed message was read by recipient. Blood Culture Anaerobic Preliminary 01/14/23-620 Organism 1 Gram positive cocci clusters Sens Sensitivities Dependent on Further Identification Blood Culture PCR Panel If viewing in EMR, results available under LAB Serology tab. GRAM STAIN RESULTS sent via [employer] to WENDY SHEN On 01/14/23 at 0616 by Sharon Washington. Confirmed message was read by recipient.
[2023-01-14] MEDS: HYDROXYCHLOROQUINE SULFATE 200 MG TAB PO SCH (20:12)
[2023-01-14] MEDS: traZODone HCL 100 MG TAB PO SCH (20:13)
[2023-01-14] MEDS: VENLAFAXINE HCL XR 37.5 MG CAPXR PO SCH (20:13)
[2023-01-14] MEDS: PIPERACILLIN/TAZOBACTAM 4.5 GM in DEXTROSE 5% 100 ML IV SCH (20:13)
[2023-01-15] MEDS: MoRPHine SULFATE 4 MG/ML 1 ML CARP\\VIAL IV PRN ×2 (01:08→09:45)
[2023-01-15] MEDS ORDERED: KETOROLAC TROMETHAMINE 15 MG/ML VIAL IV ONE (02:33)
[2023-01-15] MEDS ORDERED: oxyCODONE HCL IR 5 MG TAB (IMMEDIATE RELEASE) PO PRN (02:34)
[2023-01-15] MEDS: ACETAMINOPHEN 325 MG TAB PO PRN ×3 (03:03→17:17)
[2023-01-15] MEDS: PIPERACILLIN/TAZOBACTAM 4.5 GM in DEXTROSE 5% 100 ML IV SCH ×2 (06:06→12:21)
--- NOTE | 2023-01-15 06:27 | Orthopedic Progress Note ---
Date of Service January 15, 2023 Assessment & Plan (1) Cellulitis of finger of left hand: Plan: Hospital day 1 Interval improvement of the finger infection. She is not quite 24 hours from the start of her antibiotics. We will continue to watch her for now. I discu ssed with the patient that she would possibly still need a debridement of the finger in the operating room. Patient understands. We will continue to reassess and possibly make her n.p.o. after midnight versus n.p.o. starting tomorrow morning if a debridement will be needed. Admission and Anticipated Discharge Date Admission Date: January 14, 2023 Subjective Hospital day 1 Patient sleeping upon arrival but easily awoken. States that her finger has been painful overnight which we discussed was secondary to her infection. No other complaints. Physical Exam Physical Exam: She has a bit of improvement of her finger infection. There is some decreased erythema as well as some decreased swelling. She continues to have a small pustule on the lateral side of the middle finger. Small amount of translucent fluid just underneath the skin at this time. Tender on palpation. Cap refill less than 2 seconds. Results & Data Vital Signs (Past 12 Hours) Vital Signs Temp Pulse Resp BP Pulse Ox O2 Del Method 01/14/23 21:21 36.8 C 81 16 127/73 93 Room Air 01/14/23 20:15 Room Air
[2023-01-15 06:39] LABS: Basophils # (auto) 0.03 K/uL (0-0.2); Basophils % (auto) 0.4 %; Eosinophils # (auto) 0.06 K/uL (0-0.50); Eosinophils % (auto) 0.9 %; Hematocrit (blood only) 36.9 % (37.0-47.0); Hemoglobin 12.2 g/dl (12.0-16.0); Immature Granulocytes # (auto) 0.03 K/uL (0.01-0.20); Immature Granulocytes % (auto) 0.4 %; Lymphocytes # (auto) 1.39 K/uL (1.2-3.4); Lymphocytes % (auto) 19.9 %; Mean Corpuscular Hemoglobin 31.1 pg (25.0-34.0); Mean Corpuscular Hgb Conc 33.1 g/dL (32.0-36.0); Mean Corpuscular Volume 94.1 fL (80.0-100.0); Mean Platelet Volume 10.9 fL (9.4-12.4); Monocytes # (auto) 0.51 K/uL (0.11-0.59); Monocytes % (auto) 7.3 %; Neutrophils # (auto) 4.95 K/uL (1.40-6.50); Neutrophils % (auto) 71.1 %; Platelet Count 143 K/uL (130-400); RDW Coefficient of Variation 13.1 % (11.5-14.5); RDW Standard Deviation 44.6 fL (36.4-46.3); Red Blood Count 3.92 M/uL (4.20-5.40); White Blood Count 6.97 K/ul (4.8-10.8)
[2023-01-15 06:58] LABS: BUN Creatinine Ratio 17.2 (10-20); Calcium 9.1 mg/dl (8.6-10.3); Creatinine Clr Calc Pharmacy 59.8 ml/min; Est GFR (African American) 87.5 ml/min; Est GFR (Non-African American) 75.5 ml/min; Potassium 4.1 mmol/L (3.5-5.1)
[2023-01-15] MEDS: FLUTICASONE FUROATE 100MCG 14 PUFFS/INHALER INH SCH (07:49)
[2023-01-15] MEDS: UMECLIDINIUM/VILANTEROL 62.5/25MCG 7 PUFFS/INHALER INH SCH (07:49)
[2023-01-15] MEDS: buPROPion XL 150 MG TABCR PO SCH (07:50)
[2023-01-15] MEDS: PANTOprazole 40 MG TAB PO SCH (07:50)
[2023-01-15] MEDS ORDERED: NON-FORMULARY MEDICATION (Fluticasone-Umeclidin-Vilanter [Trelegy Ellipta] 100-62.5-25 mcg INH SCH (09:00)
[2023-01-15] MEDS: NICOTINE 14 MG/24 HR PATCH TD SCH (09:59)
[2023-01-15] MEDS: HYDROmorphone INJ 0.5 MG/0.5 ML SYR IV PRN ×3 (11:52→20:52)
--- NOTE | 2023-01-15 12:57 | Electrocardiogram Report ---
Test Reason : Blood Pressure : / mmHG Vent. Rate : 086 BPM Atrial Rate : 086 BPM P-R Int : 162 ms QRS Dur : 068 ms QT Int : 358 ms P-R-T Axes : 034 041 048 degrees QTc Int : 428 ms Sinus rhythm with occasional Premature ventricular complexes Septal infarct , age undetermined Abnormal ECG When compared with ECG of 19-OCT-2021 12:01, Septal infarct is now Present Confirmed by German Witt ([id number]) on 01/15/2023 12:57:18 PM Referred By: REFERRED SELF Confirmed By:German Witt
[2023-01-15] MEDS: oxyCODONE HCL IR 5 MG TAB (IMMEDIATE RELEASE) PO PRN ×3 (15:24→23:35)
--- NOTE | 2023-01-15 16:20 | Hospitalist Progress Note ---
Date of Service January 15, 2023 Assessment & Plan (1) Cellulitis of finger of left hand: (2) MSSA bacteremia: Plan: Cellulitis of finger of left hand ? Secondary to insect/cat bite MSSA bacteremia secondary to above --Hand MRI:Severely motion compromised examination. No acute bony abnormality is identified. Soft tissue edema is present in the fingers, greatest in third digit where there is subcutaneous fluid. Correlate clinically. No organized/drainable fluid collection is identified. Arthritic change as above. Findings of erosive arthritis were better characterized on yesterday's x-rays. --ECHO: No evidence of mass or vegetation. EF 60 to 65%. Aortic valve is mildly calcified. Aortic valve sclerosis moderate, without significant aortic valvular stenosis. Mild aortic regurgitation. Mild tricuspid regurgitation. Doppler findings do not suggest pulmonary hypertension. -- Wound, blood cultures growing MSSA --Repeat blood cultures negative to date --IV Zosyn transition to Unasyn --Need to repeat blood cultures every 48 hours until clearance Appreciate orthopedics, ID input -ID strongly recommends I&D to avoid complicated deep-seated infection or bone infection. Pain control NPO after midnight for possible debridement (3) COPD (chronic obstructive pulmonary disease): Plan: Appears stable, no signs of acute exacerbation Continue home inhalers (4) Lupus anticoagulant disorder: Plan: On Plaquenil (5) PTSD (post-traumatic stress disorder): (6) Depression: (7) Anxiety: (8) Fibromyalgia: Plan: Stable, continue home meds DVT Px SCDs for now:Re:possible need for surgical procedure Admission and Anticipated Discharge Date Admission Date: January 14, 2023 Subjective Patient is seen and examined at bedside States having significant left third finger pain associated with swelling Offers no other complaints Discussed with ID today Denies any chest pain, dyspnea, dizziness, nausea, vomiting, abdominal pain No other complaints Review of Systems Review of Systems: All systems reviewed & are unremarkable except as noted in Subjective Physical Exam Physical Exam: Physical Exam: Vitals signs as noted above General Appearance:Moderately built and nourished, no apparent distress Head: normocephalic, Atraumatic Eyes: normal inspection, EOMI Neck: supple, Trachea midline Respiratory/Chest: Normal breath sounds, CTA, No accessory muscle use Cardiovascular: S1, S2, No murmur Abdomen/GI:Soft, Non tender, Bowel sounds present Extremities/Musculoskeletal:normal inspection, no edema, +L 3rd finger swollen, tender, wound Neurologic/Psych:AAOX3, grossly no focal neurological deficits Skin: normal color, warm Results & Data Results & Data Vital Signs (Past 12 Hours) Vital Signs Temp Pulse Resp BP Pulse Ox O2 Del Method 01/15/23 15:33 37.0 C 84 16 164/98 H 95 Room Air 01/15/23 07:18 37.0 C 87 14 145/83 H 94 Room Air 01/15/23 07:10 Room Air Laboratory Results Short CBC 01/15/23 Range/Units 06:12 WBC 6.97 (4.8-10.8) K/ul Hgb 12.2 (12.0-16.0) g/dl Hct 36.9 L (37.0-47.0) % Plt Count 143 (130-400) K/uL BMP 01/15/23 06:12 Sodium 141 Potassium 4.1 Chloride 105 Carbon Dioxide 32 BUN 15 Creatinine 0.87 Glucose 94 Calcium 9.1
[2023-01-15] MEDS: AMPICILLIN/SULBACTAM SOD 3,000 MG in 0.9 % SODIUM CHLORIDE 100 ML IV SCH (20:52)
[2023-01-15] MEDS: HYDROXYCHLOROQUINE SULFATE 200 MG TAB PO SCH (20:53)
[2023-01-15] MEDS: traZODone HCL 100 MG TAB PO SCH (20:53)
[2023-01-15] MEDS: VENLAFAXINE HCL XR 37.5 MG CAPXR PO SCH (22:14)
[2023-01-16] MEDS: AMPICILLIN/SULBACTAM SOD 3,000 MG in 0.9 % SODIUM CHLORIDE 100 ML IV SCH ×4 (02:20→20:25)
[2023-01-16] MEDS: HYDROmorphone INJ 0.5 MG/0.5 ML SYR IV PRN ×5 (02:24→20:24)
[2023-01-16] MEDS: oxyCODONE HCL IR 5 MG TAB (IMMEDIATE RELEASE) PO PRN ×3 (06:07→20:49)
[2023-01-16 06:43] LABS: Basophils # (auto) 0.03 K/uL (0-0.2); Basophils % (auto) 0.3 %; Eosinophils # (auto) 0.07 K/uL (0-0.50); Eosinophils % (auto) 0.8 %; Hemoglobin 13.1 g/dl (12.0-16.0); Immature Granulocytes # (auto) 0.04 K/uL (0.01-0.20); Immature Granulocytes % (auto) 0.5 %; Lymphocytes # (auto) 1.33 K/uL (1.2-3.4); Lymphocytes % (auto) 15.4 %; Mean Corpuscular Hemoglobin 30.9 pg (25.0-34.0); Mean Corpuscular Hgb Conc 32.8 g/dL (32.0-36.0); Mean Corpuscular Volume 94.3 fL (80.0-100.0); Mean Platelet Volume 10.7 fL (9.4-12.4); Monocytes # (auto) 0.53 K/uL (0.11-0.59); Monocytes % (auto) 6.1 %; Neutrophils # (auto) 6.64 K/uL (1.40-6.50); Neutrophils % (auto) 76.9 %; Platelet Count 179 K/uL (130-400); RDW Coefficient of Variation 12.9 % (11.5-14.5); RDW Standard Deviation 43.9 fL (36.4-46.3); Red Blood Count 4.24 M/uL (4.20-5.40); White Blood Count 8.64 K/ul (4.8-10.8)
[2023-01-16 06:58] LABS: BUN Creatinine Ratio 15.5 (10-20); Calcium 9.3 mg/dl (8.6-10.3); Creatinine Clr Calc Pharmacy 73.3 ml/min; Est GFR (African American) 111.9 ml/min; Est GFR (Non-African American) 96.6 ml/min; Potassium 4.3 mmol/L (3.5-5.1)
[2023-01-16] MEDS: PANTOprazole 40 MG TAB PO SCH (07:37)
[2023-01-16] MEDS: buPROPion XL 150 MG TABCR PO SCH (07:37)
[2023-01-16] MEDS: UMECLIDINIUM/VILANTEROL 62.5/25MCG 7 PUFFS/INHALER INH SCH (07:37)
[2023-01-16] MEDS: FLUTICASONE FUROATE 100MCG 14 PUFFS/INHALER INH SCH (07:37)
[2023-01-16] MEDS: NICOTINE 14 MG/24 HR PATCH TD SCH (11:15)
[2023-01-16] MEDS ORDERED: BUPIVACAINE 0.5 % 5 MG/1 ML MPF 30ML VIAL ONE (15:38)
[2023-01-16] MEDS ORDERED: LIDOCAINE 1% LOCAL 20 ML VIAL ONE (15:38)
--- NOTE | 2023-01-16 15:38 | Anesthesiology Consultation ---
Date of Service January 16, 2023 Assessment & Plan (1) Encounter for pre-operative examination: Chart Review Chart Review: Acceptable Risk for Surgery History Surgery Operation Date: 01/16/23 09:00 Proposed Procedures p Left Third Finger Incision and Drainage - Joce Prince M.D. Height/Weight Height: 4 ft 10 in Weight: 66.8 kg Allergies Allergy/AdvReac Type Severity Reaction Status Date / Time diphenhydramine Allergy Unknown JITTERY Verified 01/14/23 10:28 milnacipran Allergy Unknown VOMITS Verified 01/14/23 10:28 Medications Home Medications Medication Instructions Recorded Confirmed Last Taken hydroxychloroquine 200 mg tablet 200 mg PO HS 06/06/18 01/14/23 01/14/23 (Plaquenil) trazodone 50 mg tablet 100 mg PO HS 06/06/18 01/14/23 01/13/23 lansoprazole 30 mg capsule,delayed 30 mg PO QAM 12/29/20 01/14/23 01/14/23 release celecoxib 200 mg capsule 20 mg PO QAM 07/29/21 01/14/23 01/14/23 cyclobenzaprine 10 mg tablet 10 mg PO HS PRN Muscle Spasm 07/29/21 01/14/23 01/13/23 albuterol sulfate 90 mcg/actuation 2 puff inhalation Q4 PRN Wheezing 10/19/21 01/14/23 01/13/23 aerosol inhaler oxycodone 5 mg capsule 5 mg PO Q6H PRN pain #14 caps 01/13/23 01/14/23 01/13/23 bupropion HCl 150 mg 24 hr tablet, 150 mg PO QAM 01/14/23 01/14/23 01/14/23 extended release fluticasone fur. 100 mcg-umeclid 1 inh inhalation QAM 01/14/23 01/14/23 01/13/23 62.5 mcg-vilant 25 mcg inhalat.powder (Trelegy Ellipta) methylprednisolone 4 mg tablets in 4 mg PO DIRECTED 01/14/23 01/14/23 01/13/23 a dose pack venlafaxine 37.5 mg 37.5 mg PO HS 01/14/23 01/14/23 01/13/23 capsule,extended release 24 hr Active Medications Generic Name Dose Route Start Last Admin Trade Name Freq PRN Reason Stop Dose Admin Acetaminophen 650 mg 01/14/23 12:42 01/15/23 17:17 Acetaminophen 325 Mg Tab PO 02/13/23 12:41 650 mg Q4H PRN Administration pain/fever Bupropion HCl 150 mg 01/15/23 09:00 01/16/23 07:37 Bupropion Xl 150 Mg Tabcr PO 02/14/23 08:59 150 mg QAM AMRIK Administration Fluticasone Furoate 1 puffs 01/15/23 09:00 01/16/23 07:37 Fluticasone Furoate 100mcg 14 Puffs/Inhaler INH 02/14/23 08:59 1 puffs DAILY AMRIK Administration Hydromorphone HCl 1 mg 01/15/23 11:30 01/16/23 15:13 Hydromorphone Inj 0.5 Mg/0.5 Ml Syr IV 01/29/23 11:29 1 mg Q3H PRN Administration Pain Hydroxychloroquine Sulfate 200 mg 01/14/23 21:00 01/15/23 20:53 Hydroxychloroquine Sulfate 200 Mg Tab PO 02/13/23 20:59 200 mg HS AMRIK Administration Ampicillin Sodium/Sulbactam 108 mls @ 216 mls/hr 01/15/23 20:00 01/16/23 14:22 Sodium 3,000 mg/ Sodium IV 01/29/23 19:59 Infused Chloride Q6H AMRIK Infusion Miscellaneous 1 each 01/15/23 08:59 01/16/23 11:15 Remove Nicoderm Patch N/A 02/14/23 08:58 1 each DAILY@0859 AMRIK Administration Nicotine 14 mg 01/14/23 16:00 01/16/23 11:15 Nicotine 14 Mg/24 Hr Patch TD 02/13/23 15:59 14 mg QAM AMRIK Administration Oxycodone HCl 5 - 10 mg 01/15/23 11:31 01/16/23 14:08 Oxycodone Hcl Ir 5 Mg Tab (Immediate Release) PO 01/29/23 02:33 10 mg Q6H PRN Administration Pain Pantoprazole Sodium 40 mg 01/15/23 09:00 01/16/23 07:37 Pantoprazole 40 Mg Tab PO 02/14/23 08:59 40 mg QAM AMRIK Administration Trazodone HCl 100 mg 01/14/23 21:00 01/15/23 20:53 Trazodone Hcl 100 Mg Tab PO 02/13/23 20:59 100 mg HS AMRIK Administration Umeclidinium/Vilanterol 1 puffs 01/15/23 09:00 01/16/23 07:37 Umeclidinium/Vilanterol 62.5/25mcg 7 Puffs/Inhaler INH 02/14/23 08:59 1 puffs DAILY AMRIK Administration Venlafaxine HCl 37.5 mg 01/14/23 21:00 01/15/23 22:14 Venlafaxine Hcl Xr 37.5 Mg Capxr PO 02/13/23 20:59 37.5 mg HS AMRIK Administration Past Medical History Medical History Anxiety COPD (chronic obstructive pulmonary disease) Depression Endometrial cancer Fibromyalgia GERD (gastroesophageal reflux disease) Lupus anticoagulant disorder PTSD (post-traumatic stress disorder) Past Surgical History Surgical History H/O foot surgery clubbed foot repair as infant History of ventral hernia repair S/P abdominal hysterectomy Social History Smoking Status: Current every day smoker tobacco type: cigarettes Do You Dip or Chew Tobacco: No Hx Alcohol Use: Yes Alcohol type: hard liquor alcohol intake frequency: holidays/special occasions only Hx Substance Use: Yes substance use type: crack/cocaine Last Used Substance Other:: 27 years ago Physical Exam Vital Signs Last Vital Signs Temp 37.0 C 01/16/23 14:46 Pulse 105 H 01/16/23 14:46 Resp 18 01/16/23 14:46 BP 131/88 01/16/23 14:46 Pulse Ox 90 01/16/23 14:46 O2 Del Method Room Air 01/16/23 14:46 Testing Laboratory Results 01/16/23 06:13 01/16/23 06:13 PT 11.1 Seconds (9.0-12.0) 01/14/23 09:56 INR 1.0 (0.9-1.1) 01/14/23 09:56 APTT 28.2 Seconds (21.0-31.0) 01/14/23 09:56 Urine Color Yellow 01/14/23 12:55 Urine Appearance Clear (Clear) 01/14/23 12:55 Urine pH 6.0 (4.5-7.5) 01/14/23 12:55 Ur Specific Dorothy 1.009 (1.000-1.030) 01/14/23 12:55 Urine Protein Negative (Negative) 01/14/23 12:55 Urine Glucose (UA) Negative (Negative) 01/14/23 12:55 Urine Ketones Negative (Negative) 01/14/23 12:55 Urine Nitrite Negative (Negative) 01/14/23 12:55 Ur Leukocyte Esterase Negative (Negative) 01/14/23 12:55 01/14/23 09:56 Aerobic Blood Culture - Preliminary Blood No growth in Aerobic bottle after 48 hours. Anaerobic Blood Culture - Preliminary No growth in Anaerobic bottle after 48 hours. 01/14/23 10:21 Aerobic Blood Culture - Preliminary Blood No growth in Aerobic bottle after 48 hours. Anaerobic Blood Culture - Preliminary No growth in Anaerobic bottle after 48 hours. 01/14/23 09:15 Gram Stain - Final Finger,Left Middle Wound Culture - Final Staphylococcus aureus Electrocardiogram Date: 01/14/23 Findings: + NSR @ (86) and + poor R wave progression Echocardiogram Date: 01/15/23 EF: 60-65% LV Function: normal Valvular Disease: + MR (mild MR) aortic sclerosis without stenosis
[2023-01-16] MEDS ORDERED: MIDAZOLAM HCL 1 MG/ML 2ML VIAL ONE (15:43)
[2023-01-16] MEDS ORDERED: PROPOFOL IV EMULSION 10 MG/ML 20 ML VIAL IV ONE (15:43)
[2023-01-16] MEDS ORDERED: fentaNYL citrate PF 100 MCG/2 ML VIAL ONE (15:43)
[2023-01-16] MEDS ORDERED: LIDOCAINE 2% 2 ML VIAL/AMP(20MG/ML) INFIL ONE (15:43)
[2023-01-16] MEDS ORDERED: HYDROmorphone INJ 1 MG/ML SYRINGE IV PRN (16:14)
[2023-01-16] MEDS ORDERED: ONDANSETRON INJ 2 MG/ML 2 ML VIAL IV PRN (16:14)
[2023-01-16] MEDS ORDERED: ATROPINE SULFATE 0.1 MG/ML 10ML SYR IV PRN (16:14)
--- NOTE | 2023-01-16 17:17 | History & Physical Bridge Note ---
Date of Service January 16, 2023 History & Physical Bridge Note I have examined the patient, reviewed the History & Physical and in the interval since the performance of the History & Physical I have noted the following changes of clinical significance: Patient with progressively worsening infection on the distaldorsal aspect of her left middle finger for several weeks. States she previously had a blister in the area which she poked with a needle. She denies history of diabetes, but smokes about 1 pack of cigarettes per day. X-rays and MRIs show erosive arthritis in multiple digits, but no obvious evidence of osteomyelitis in the middle finger. I would recommend irrigation and debridement in an attempt to clear this infection. I strongly encouraged her to quit smoking to increase her chance of healing. Risks, benefits, and alternatives of surgery were explained in detail. The surgical procedure, as well as postoperative recovery and rehabilitation, was also explained in detail. Risks include bleeding; persistent infection; damage to surrounding structures such as nerves, blood vessels, and tendons that run in the area; persistent pain, weakness, or stiffness; or need for further surgery. The patient understands all of this and wishes to proceed with surgery. Informed consent was obtained.
--- NOTE | 2023-01-16 17:30 | Hospitalist Progress Note ---
Date of Service January 16, 2023 Assessment & Plan (1) Cellulitis of finger of left hand: (2) MSSA bacteremia: Plan: Cellulitis of finger of left hand ? Secondary to insect/cat bite MSSA bacteremia secondary to above --Hand MRI:Severely motion compromised examination. No acute bony abnormality is identified. Soft tissue edema is present in the fingers, greatest in third digit where there is subcutaneous fluid. Correlate clinically. No organized/drainable fluid collection is identified. Arthritic change as above. Findings of erosive arthritis were better characterized on yesterday's x-rays. --ECHO: No evidence of mass or vegetation. EF 60 to 65%. Aortic valve is mildly calcified. Aortic valve sclerosis moderate, without significant aortic valvular stenosis. Mild aortic regurgitation. Mild tricuspid regurgitation. Doppler findings do not suggest pulmonary hypertension. -- Wound, blood cultures growing MSSA --Repeat blood cultures negative to date --IV Zosyn transition to Unasyn --Need to repeat blood cultures every 48 hours until clearance Appreciate orthopedics, ID input -ID strongly recommends I&D to avoid complicated deep-seated infection or bone infection. Pain control Plan for I&D today (3) COPD (chronic obstructive pulmonary disease): Plan: Appears stable, no signs of acute exacerbation Continue home inhalers (4) Lupus anticoagulant disorder: Plan: On Plaquenil (5) PTSD (post-traumatic stress disorder): (6) Depression: (7) Anxiety: (8) Fibromyalgia: Plan: Stable, continue home meds DVT Px SCDs for now:Re:possible need for surgical procedure Admission and Anticipated Discharge Date Admission Date: January 14, 2023 Subjective Patient is seen and examined at bedside No significant change from yesterday Continues to have left third finger pain associated with swelling Planned for I&D today Denies any chest pain, dyspnea, dizziness, nausea, vomiting, abdominal pain Review of Systems Review of Systems: All systems reviewed & are unremarkable except as noted in Subjective Physical Exam Physical Exam: Physical Exam: Vitals signs as noted above General Appearance:Moderately built and nourished, no apparent distress Head: normocephalic, Atraumatic Eyes: normal inspection, EOMI Neck: supple, Trachea midline Respiratory/Chest: Normal breath sounds, CTA, No accessory muscle use Cardiovascular: S1, S2, No murmur Abdomen/GI:Soft, Non tender, Bowel sounds present Extremities/Musculoskeletal:normal inspection, no edema, +L 3rd finger swollen, tender, wound Neurologic/Psych:AAOX3, grossly no focal neurological deficits Skin: normal color, warm Results & Data Results & Data Vital Signs (Past 12 Hours) Vital Signs Temp Pulse Pulse Resp BP Pulse Ox O2 Del Method 01/16/23 16:02 37.6 C H 94 H 18 115/80 93 Room Air 01/16/23 14:46 37.0 C 105 H 18 131/88 90 Room Air 01/16/23 09:10 92 Room Air 01/16/23 07:25 Room Air 01/16/23 07:19 90 Room Air 01/16/23 07:17 37.1 C 96 H 16 148/90 H 88 L Room Air Laboratory Results Short CBC 01/16/23 Range/Units 06:13 WBC 8.64 (4.8-10.8) K/ul Hgb 13.1 (12.0-16.0) g/dl Hct 40.0 (37.0-47.0) % Plt Count 179 (130-400) K/uL BMP 01/16/23 06:13 Sodium 134 L Potassium 4.3 Chloride 99 Carbon Dioxide 28 BUN 11 Creatinine 0.71 Glucose 101 H Calcium 9.3
[2023-01-16] MEDS ORDERED: KETAMINE 50 MG/5 ML SYRINGE ONE (17:31)
[2023-01-16] MEDS ORDERED: ceFAZolin 330 MG/ML 1 GM VIAL ONE (18:05)
--- NOTE | 2023-01-16 18:23 | Post Operative Brief Note ---
Immediate Post Op Note v1 Date of Surgery January 16, 2023 Pre & Post Diagnosis Operation Date: 01/16/23 09:00 Pre-Op Diagnosis: Left middle finger infection Post-Op Diagnosis: Left middle finger infection I identified the patient and participated in the time-out.: Yes Procedure Operation Date: 01/16/23 09:00 Actual Procedures Left middle finger irrigation and debridement - Joce Prince M.D. Surgeon Joce Prince MD Vocational Rehab Consultant None Estimated Blood Loss 5 Findings Consistent with Post-Op Diagnosis
--- NOTE | 2023-01-16 18:41 | Operative Report ---
Post Operative Report Pre & Post Diagnosis Operation Date: 01/16/23 09:00 Pre-Op Diagnosis: Left middle finger infection Post-Op Diagnosis: Left middle finger infection with significant soft tissue necrosis I identified the patient and participated in the time-out.: Yes Procedure Operation Date: 01/16/23 09:00 Actual Procedures Left middle finger irrigation and debridement of skin, subcutaneous tissue, deep fascia, tendon, and bone (94753) - Joce Prince M.D. Surgeon Joce Prince MD Bridal Consultant None Estimated Blood Loss 5 Findings Consistent with Post-Op Diagnosis Specimens Fluid for Gram stain and culture Anesthesia Type MAC Complications none Disposition Disposition: Recovery Room Indications Ms. Bailey is a 53-year-old female who has had a progressively worsening infection on the dorsal aspect of her left middle finger for the past several weeks. History, clinical exam, and imaging were consistent with the above diagnosis. Risks, benefits, and alternatives of surgery were explained in detail. The patient understood all this and wished to proceed. Description of Procedure Patient was identified in the preoperative holding area. Operative extremity was marked. Patient was then brought back to the operating room, and MAC anesthesia was induced without complication. Digital blockade was performed with a 50/50 mixture of 1% lidocaine and 0.5% Marcaine without epinephrine. Preoperative antibiotics were held until intraoperative cultures were obtained. Tourniquet was placed on the left forearm, but was not inflated during the case. The forearm was then prepped and draped in a standard sterile fashion using Betadine prep. There is a large blistering fluid collection on the dorsal aspect of the left middle finger at the level of the DIP joint, approximately 2 cm in diameter. I made a small stab incision on the radial aspect of this blister, and there was a large amount of bloody purulent fluid that immediately drained from this b tanja; the the fluid was collected on culture swabs for Gram stain and aerobic and anaerobic cultures. After cultures had been obtained, an appropriate weight-based dose of Ancef was infused intravenously for antibiotic prophylaxis. It quickly became clear that there was much more extensive tissue necrosis underneath this blistered area than I was expecting to fine. The thin epidermal layer of the blister was excised, and there was extensive necrosis of the underlying dermis about 2 cm in diameter directly dorsal to the DIP joint, worsening in the center of the wound down to discrete sinus tract extending all the way down to the DIP joint. Extensive necrosis of the epidermis, dermis, and subcutaneous tissue was aggressively debrided with curette, rongeur, knife, and scissors. The terminal extensor tendon was found to be intact and inserting into the dorsal aspect of the distal phalanx, but the distal phalangeal bone was clearly exposed, and the infection had eroded through the DIP joint capsule on both the ulnar and radial borders of the extensor tendon. The proximal aspect of the germinal matrix was also found to be eroded and necrotic. All necrotic tissue was aggressively debrided. I did consider at this point whether the patient would be better served with an amputation. We did not discuss this specifically preoperatively, and consent for amputation was not obtained. Preoperative imaging did not show any obvious evidence of osteomyelitis either on x-ray or MRI. This fact, along with the intact terminal extensor tendon, led me to attempt salvage of the digit at this point. Therefore amputation was not performed at this setting, but I am concerned that this presentation may conclude with that outcome, especially with the patient's smoking history. After thorough debridement, I then copiously irrigated the wounds with sterile saline. Due to the fairly extensive necrosis of the dermal layer, superficial closure was not possible. Sterile dressings were then applied with Xeroform, sterile Cling wrap, and Coban. The drapes were removed, the patient was awakened from anesthesia, and taken to the Post Anesthesia Care Unit in stable condition. There were no immediate complications to the procedure. I was present and scrubbed for the entire procedure. I attest to the content of the Intraoperative Record and any orders documented therein. Any exceptions are noted below.
[2023-01-16] MEDS ORDERED: ceFAZolin 1000MG 1,000 MG/7.5 ML SYR IV ONE (19:00)
--- NOTE | 2023-01-16 19:20 | Anesthesiology Progress Note ---
Date of Service January 16, 2023 Anesthesia Post Procedure Vital Signs Vital Signs: Temp Pulse Pulse Pulse Resp BP Pulse Ox 01/16/23 19:03 36.9 C 87 16 114/74 94 01/16/23 18:30 36.7 C 86 17 106/59 L 98 01/16/23 18:20 85 19 119/66 96 01/16/23 18:13 36.2 C L 88 22 133/75 99 01/16/23 16:02 37.6 C H 94 H 18 115/80 93 01/16/23 14:46 37.0 C 105 H 18 131/88 90 01/16/23 09:10 92 01/16/23 07:25 01/16/23 07:19 90 01/16/23 07:17 37.1 C 96 H 16 148/90 H 88 L 01/15/23 21:30 01/15/23 21:01 36.9 C 85 18 157/85 H 95 O2 Del Method O2 Flow Rate 01/16/23 19:03 Nasal Cannula 1 01/16/23 18:30 Nasal Cannula 3 01/16/23 18:20 Nasal Cannula 3 01/16/23 18:13 Nasal Cannula 3 01/16/23 16:02 Room Air 01/16/23 14:46 Room Air 01/16/23 09:10 Room Air 01/16/23 07:25 Room Air 01/16/23 07:19 Room Air 01/16/23 07:17 Room Air 01/15/23 21:30 Room Air 01/15/23 21:01 Room Air Pain Intensity Left 3rd Digit: Pain Intensity: 8 Transfer of Care Handoff Completed per policy Notes Mental Status: alert / awake / arousable Patient Amnestic to Procedure: Yes Nausea / Vomiting: adequately controlled Pain: adequately controlled Airway Patency, RR, SpO2: stable & adequate BP & HR: stable & adequate Hydration State: stable & adequate Anesthetic Complications: no major complications apparent
[2023-01-16] MEDS: HYDROXYCHLOROQUINE SULFATE 200 MG TAB PO SCH (20:31)
[2023-01-16] MEDS: traZODone HCL 100 MG TAB PO SCH (20:31)
[2023-01-16] MEDS: VENLAFAXINE HCL XR 37.5 MG CAPXR PO SCH (22:23)
[2023-01-17] MEDS: AMPICILLIN/SULBACTAM SOD 3,000 MG in 0.9 % SODIUM CHLORIDE 100 ML IV SCH ×4 (02:06→19:50)
[2023-01-17] MEDS: HYDROmorphone INJ 0.5 MG/0.5 ML SYR IV PRN ×3 (02:11→11:31)
[2023-01-17] MEDS: oxyCODONE HCL IR 5 MG TAB (IMMEDIATE RELEASE) PO PRN ×3 (06:15→19:44)
[2023-01-17 06:33] LABS: Basophils # (auto) 0.02 K/uL (0-0.2); Basophils % (auto) 0.3 %; Eosinophils # (auto) 0.06 K/uL (0-0.50); Eosinophils % (auto) 0.8 %; Hematocrit (blood only) 35.7 % (37.0-47.0); Hemoglobin 12.2 g/dl (12.0-16.0); Immature Granulocytes # (auto) 0.02 K/uL (0.01-0.20); Immature Granulocytes % (auto) 0.3 %; Lymphocytes # (auto) 1.28 K/uL (1.2-3.4); Lymphocytes % (auto) 16.1 %; Mean Corpuscular Hemoglobin 31.3 pg (25.0-34.0); Mean Corpuscular Hgb Conc 34.2 g/dL (32.0-36.0); Mean Corpuscular Volume 91.5 fL (80.0-100.0); Mean Platelet Volume 10.6 fL (9.4-12.4); Monocytes # (auto) 0.58 K/uL (0.11-0.59); Monocytes % (auto) 7.3 %; Neutrophils % (auto) 75.2 %; Platelet Count 162 K/uL (130-400); RDW Coefficient of Variation 12.8 % (11.5-14.5); RDW Standard Deviation 42.1 fL (36.4-46.3); White Blood Count 7.96 K/ul (4.8-10.8)
[2023-01-17] MEDS: FLUTICASONE FUROATE 100MCG 14 PUFFS/INHALER INH SCH (07:07)
[2023-01-17] MEDS: UMECLIDINIUM/VILANTEROL 62.5/25MCG 7 PUFFS/INHALER INH SCH (07:08)
[2023-01-17] MEDS: NICOTINE 14 MG/24 HR PATCH TD SCH (07:08)
[2023-01-17] MEDS: buPROPion XL 150 MG TABCR PO SCH (07:09)
[2023-01-17] MEDS: PANTOprazole 40 MG TAB PO SCH (07:09)
[2023-01-17 07:20] LABS: Calcium 9.2 mg/dl (8.6-10.3); Potassium 4.4 mmol/L (3.5-5.1)
[2023-01-17 07:25] LABS: BUN Creatinine Ratio 18.2 (10-20); Creatinine Clr Calc Pharmacy 78.9 ml/min; Est GFR (African American) 116.1 ml/min; Est GFR (Non-African American) 100.1 ml/min
--- NOTE | 2023-01-17 08:30 | Orthopedic Progress Note ---
Date of Service January 17, 2023 Assessment & Plan (1) Cellulitis of finger of left hand: Plan: Postop day 1 status post I&D left third finger Extensive debridement of the left third distal finger including into the DIP joint. Continue IV antibiotics for the next 48 hours. We will continue to maintain the same dressing until seen in the office. Plan for oral antibiotics upon discharge per Dr. Prince unless otherwise stated by infectious disease team. No further surgery planned at this time. Admission and Anticipated Discharge Date Admission Date: January 14, 2023 Subjective Postop day 1 Patient is sitting up in bed eating breakfast. Pain appears to be controlled. She was having problems with pain control during the night. This seems to have been resolved. No other complaints this morning. I discussed results of surgery with the patient after talking to Dr. Prince. Discussed the cessation of smoking with the patient. Physical Exam Physical Exam: Dressings are clean, dry, and intact. No noted erythema of the dorsum of the hand or going up the forearm. Cap refill of surrounding fingers less than 2 sec. Results & Data Vital Signs (Past 12 Hours) Vital Signs Temp Pulse Resp BP Pulse Ox O2 Del Method O2 Flow Rate 01/17/23 07:26 94 Nasal Cannula 2 01/17/23 07:23 36.9 C 97 H 18 124/78 84 L Room Air 01/17/23 04:20 36.9 C 98 H 18 148/82 H 94 Nasal Cannula 2 01/16/23 23:59 36.9 C 93 H 18 130/85 93 Nasal Cannula 2 01/16/23 20:30 Room Air 01/16/23 22:00 36.9 C 97 H 18 134/83 90 Nasal Cannula 2 01/16/23 21:00 37 C 97 H 18 160/94 H 93 Nasal Cannula 1
--- NOTE | 2023-01-17 16:08 | Hospitalist Progress Note ---
Date of Service January 17, 2023 Assessment & Plan (1) Cellulitis of finger of left hand: (2) MSSA bacteremia: Plan: Cellulitis of finger of left hand ? Secondary to insect/cat bite MSSA bacteremia secondary to above --Hand MRI:Severely motion compromised examination. No acute bony abnormality is identified. Soft tissue edema is present in the fingers, greatest in third digit where there is subcutaneous fluid. Correlate clinically. No organized/drainable fluid collection is identified. Arthritic change as above. Findings of erosive arthritis were better characterized on yesterday's x-rays. --ECHO: No evidence of mass or vegetation. EF 60 to 65%. Aortic valve is mildly calcified. Aortic valve sclerosis moderate, without significant aortic valvular stenosis. Mild aortic regurgitation. Mild tricuspid regurgitation. Doppler findings do not suggest pulmonary hypertension. --S/P Left middle finger irrigation and debridement of skin, subcutaneous tissue, deep fascia, tendon, and bone by on 01/16/23 -- Wound, blood cultures growing MSSA --Repeat blood cultures negative to date --Operative wound culture growing staph species --IV Zosyn transition to Unasyn --Need to repeat blood cultures every 48 hours until clearance Appreciate orthopedics, ID input -Pain control -We will decide on final antibiotics based on cultures Plan to continue IV antibiotics for next 48 hours Needs follow-up with orthopedics upon discharge Minimize pain medications as able (3) COPD (chronic obstructive pulmonary disease): Plan: Appears stable, no signs of acute exacerbation Continue home inhalers (4) Lupus anticoagulant disorder: Plan: On Plaquenil (5) PTSD (post-traumatic stress disorder): (6) Depression: (7) Anxiety: (8) Fibromyalgia: Plan: Stable, continue home meds DVT Px Heparin SQ Admission and Anticipated Discharge Date Admission Date: January 14, 2023 Subjective Patient is seen and examined at bedside Had debridement of left third finger yesterday States feeling tired today Discussed with orthopedics today No new complaints otherwise Denies any chest pain, dyspnea, dizziness, nausea, vomiting, abdominal pain Review of Systems Review of Systems: All systems reviewed & are unremarkable except as noted in Subjective Physical Exam Physical Exam: Physical Exam: Vitals signs as noted above General Appearance:Moderately built and nourished, no apparent distress Head: normocephalic, Atraumatic Eyes: normal inspection, EOMI Neck: supple, Trachea midline Respiratory/Chest: Normal breath sounds, CTA, No accessory muscle use Cardiovascular: S1, S2, No murmur Abdomen/GI:Soft, Non tender, Bowel sounds present Extremities/Musculoskeletal:normal inspection, no edema, +L 3rd finger swollen, tender, wound in dressing Neurologic/Psych:AAOX3, grossly no focal neurological deficits Skin: normal color, warm Results & Data Results & Data Vital Signs (Past 12 Hours) Vital Signs Temp Pulse Pulse Resp BP Pulse Ox O2 Del Method 01/17/23 15:24 36.9 C 81 16 130/84 92 Room Air 01/17/23 11:24 36.9 C 88 16 139/89 93 Room Air 01/17/23 07:45 Nasal Cannula 01/17/23 07:26 94 Nasal Cannula 01/17/23 07:23 36.9 C 97 H 18 124/78 84 L Room Air 01/17/23 04:20 36.9 C 98 H 18 148/82 H 94 Nasal Cannula O2 Flow Rate 01/17/23 15:24 01/17/23 11:24 01/17/23 07:45 2 01/17/23 07:26 2 01/17/23 07:23 01/17/23 04:20 2 Laboratory Results Short CBC 01/17/23 Range/Units 05:54 WBC 7.96 (4.8-10.8) K/ul Hgb 12.2 (12.0-16.0) g/dl Hct 35.7 L (37.0-47.0) % Plt Count 162 (130-400) K/uL BMP 01/17/23 05:54 Sodium 133 L Potassium 4.4 Chloride 99 Carbon Dioxide 28 BUN 12 Creatinine 0.66 Glucose 89 Calcium 9.2
[2023-01-17] MEDS: HYDROmorphone INJ 1 MG/ML SYRINGE IV PRN ×2 (16:33→21:20)
[2023-01-17] MEDS: ACETAMINOPHEN 325 MG TAB PO PRN (17:57)
[2023-01-17] MEDS: HYDROXYCHLOROQUINE SULFATE 200 MG TAB PO SCH (19:44)
[2023-01-17] MEDS: traZODone HCL 100 MG TAB PO SCH (19:44)
[2023-01-17] MEDS: VENLAFAXINE HCL XR 37.5 MG CAPXR PO SCH (19:44)
[2023-01-17] MEDS: HEPARIN SOD 5,000 UNIT/0.5 ML VIAL SQ SCH (19:50)
[2023-01-18] MEDS: HYDROmorphone INJ 1 MG/ML SYRINGE IV PRN ×6 (02:10→22:47)
[2023-01-18] MEDS: AMPICILLIN/SULBACTAM SOD 3,000 MG in 0.9 % SODIUM CHLORIDE 100 ML IV SCH ×2 (02:10→08:29)
[2023-01-18] MEDS: oxyCODONE HCL IR 5 MG TAB (IMMEDIATE RELEASE) PO PRN ×3 (05:59→19:58)
[2023-01-18] MEDS: buPROPion XL 150 MG TABCR PO SCH (08:37)
[2023-01-18] MEDS: UMECLIDINIUM/VILANTEROL 62.5/25MCG 7 PUFFS/INHALER INH SCH (08:39)
[2023-01-18] MEDS: FLUTICASONE FUROATE 100MCG 14 PUFFS/INHALER INH SCH (08:40)
[2023-01-18] MEDS: PANTOprazole 40 MG TAB PO SCH (08:40)
[2023-01-18] MEDS: HEPARIN SOD 5,000 UNIT/0.5 ML VIAL SQ SCH ×2 (08:41→19:57)
[2023-01-18] MEDS: NICOTINE 14 MG/24 HR PATCH TD SCH (08:43)
[2023-01-18] MEDS: ceFAZolin 2000MG 2,000 MG/15 ML SYR IV SCH ×2 (15:13→22:46)
--- NOTE | 2023-01-18 16:17 | Hospitalist Progress Note ---
Date of Service January 18, 2023 Assessment & Plan (1) Cellulitis of finger of left hand: (2) MSSA bacteremia: Plan: Left middle finger cellulitis with significant soft tissue necrosis Possible osteomyelitis ? Secondary to insect/cat bite MSSA bacteremia secondary to above --Hand MRI:Severely motion compromised examination. No acute bony abnormality is identified. Soft tissue edema is present in the fingers, greatest in third digit where there is subcutaneous fluid. Correlate clinically. No organized/drainable fluid collection is identified. Arthritic change as above. Findings of erosive arthritis were better characterized on yesterday's x-rays. --ECHO: No evidence of mass or vegetation. EF 60 to 65%. Aortic valve is mildly calcified. Aortic valve sclerosis moderate, without significant aortic valvular stenosis. Mild aortic regurgitation. Mild tricuspid regurgitation. Doppler findings do not suggest pulmonary hypertension. --S/P Left middle finger irrigation and debridement of skin, subcutaneous tissue, deep fascia, tendon, and bone by on 01/16/23 -- Wound, blood cultures growing MSSA --Repeat blood cultures negative to date --Operative wound culture: Preliminary culture growing Staph aureus --IV Zosyn >>Unasyn>> IV cefazolin -- Discussed with ID, Dr. Whittaker today: Given possibility of osteomyelitis, recommends IV cefazolin for 6 weeks duration from the date of debridement Appreciate orthopedics, ID input -Pain control -Needs follow-up with orthopedics upon discharge --Will need PICC line, once cleared by orthopedics,Out Pt IV antibiotics arranged by CM (3) COPD (chronic obstructive pulmonary disease): Plan: Appears stable, no signs of acute exacerbation Continue home inhalers (4) Lupus anticoagulant disorder: Plan: On Plaquenil (5) PTSD (post-traumatic stress disorder): (6) Depression: (7) Anxiety: (8) Fibromyalgia: Plan: Stable, continue home meds DVT Px Heparin SQ Admission and Anticipated Discharge Date Admission Date: January 14, 2023 Subjective Patient is seen and examined at bedside Reports having persistent left third finger Pain Discussed with ID today No new complaints otherwise Denies any chest pain, dyspnea, dizziness, nausea, vomiting, abdominal pain Review of Systems Review of Systems: All systems reviewed & are unremarkable except as noted in Subjective Physical Exam Physical Exam: Physical Exam: Vitals signs as noted above General Appearance:Moderately built and nourished, no apparent distress Head: normocephalic, Atraumatic Eyes: normal inspection, EOMI Neck: supple, Trachea midline Respiratory/Chest: Normal breath sounds, CTA, No accessory muscle use Cardiovascular: S1, S2, No murmur Abdomen/GI:Soft, Non tender, Bowel sounds present Extremities/Musculoskeletal:normal inspection, no edema, +L 3rd finger swollen, tender, wound in dressing Neurologic/Psych:AAOX3, grossly no focal neurological deficits Skin: normal color, warm Results & Data Results & Data Vital Signs (Past 12 Hours) Vital Signs Temp Pulse Pulse Resp BP Pulse Ox O2 Del Method 01/18/23 15:24 37 C 69 14 127/83 95 Room Air 01/18/23 08:15 Room Air 01/18/23 07:29 37 C 89 16 121/85 93 Room Air
[2023-01-18] MEDS ORDERED: HYDROmorphone INJ 0.5 MG/0.5 ML SYR IV STA (18:29)
[2023-01-18] MEDS ORDERED: HYDROmorphone INJ 0.5 MG/0.5 ML SYR IV ONE (18:29)
[2023-01-18] MEDS: VENLAFAXINE HCL XR 37.5 MG CAPXR PO SCH (19:56)
[2023-01-18] MEDS: HYDROXYCHLOROQUINE SULFATE 200 MG TAB PO SCH ×2 (19:57→21:19)
[2023-01-18] MEDS: traZODone HCL 100 MG TAB PO SCH ×2 (19:57→21:19)
[2023-01-19] MEDS: oxyCODONE HCL IR 5 MG TAB (IMMEDIATE RELEASE) PO PRN (05:40)
[2023-01-19] MEDS: ceFAZolin 2000MG 2,000 MG/15 ML SYR IV SCH ×2 (05:41→14:00)
[2023-01-19 06:12] LABS: Hematocrit (blood only) 34.6 % (37.0-47.0); Hemoglobin 11.8 g/dl (12.0-16.0); Mean Corpuscular Hemoglobin 30.9 pg (25.0-34.0); Mean Corpuscular Hgb Conc 34.1 g/dL (32.0-36.0); Mean Corpuscular Volume 90.6 fL (80.0-100.0); Mean Platelet Volume 10.6 fL (9.4-12.4); Platelet Count 185 K/uL (130-400); RDW Coefficient of Variation 12.5 % (11.5-14.5); RDW Standard Deviation 41.1 fL (36.4-46.3); Red Blood Count 3.82 M/uL (4.20-5.40); White Blood Count 5.52 K/ul (4.8-10.8)
[2023-01-19 06:27] LABS: BUN Creatinine Ratio 17.1 (10-20); Creatinine Clr Calc Pharmacy 74.3 ml/min; Est GFR (African American) 113.8 ml/min; Est GFR (Non-African American) 98.2 ml/min
[2023-01-19] MEDS: HYDROmorphone INJ 1 MG/ML SYRINGE IV PRN (06:35)
[2023-01-19] MEDS: buPROPion XL 150 MG TABCR PO SCH (07:48)
[2023-01-19] MEDS: HEPARIN SOD 5,000 UNIT/0.5 ML VIAL SQ SCH (07:48)
[2023-01-19] MEDS: PANTOprazole 40 MG TAB PO SCH (07:48)
[2023-01-19] MEDS: NICOTINE 14 MG/24 HR PATCH TD SCH (07:48)
[2023-01-19] MEDS: FLUTICASONE FUROATE 100MCG 14 PUFFS/INHALER INH SCH (07:49)
[2023-01-19] MEDS: UMECLIDINIUM/VILANTEROL 62.5/25MCG 7 PUFFS/INHALER INH SCH (07:49)
[2023-01-19] MEDS: ACETAMINOPHEN 325 MG TAB PO PRN (08:59)
--- NOTE | 2023-01-19 09:24 | Hospitalist Progress Note ---
Date of Service January 19, 2023 Assessment & Plan (1) Cellulitis of finger of left hand: Plan: POD3 s/p washout and debriding of necrotic tissue. Pain not well controlled wtih the oxycodone and we discussed wanting to try and avoid IV narcotics given how far out from surgery we are and that we cannot provide this at home. We decided to try and schedule Tylenol and Tramadol in lieu of oxycodone. declines Ibuprofen as a trial . It appears from outpatient record review that she is taking once daily Celebrex 200mg daily as outpatient, which was held on admission. Restarting this now to help with pain. (2) MSSA bacteremia: Plan: Left middle finger cellulitis with significant soft tissue necrosis Possible osteomyelitis ? Secondary to bite and her manipulation of blister and skin after bite MSSA bacteremia secondary to above --Hand MRI:Severely motion compromised examination. No acute bony abnormality is identified. Soft tissue edema is present in the fingers, greatest in third digit where there is subcutaneous fluid. Correlate clinically. No organized/drainable fluid collection is identified. Arthritic change as above. Findings of erosive arthritis were better characterized on yesterday's x-rays. --ECHO: No evidence of mass or vegetation. EF 60 to 65%. Aortic valve is mildly calcified. Aortic valve sclerosis moderate, without significant aortic valvular stenosis. Mild aortic regurgitation. Mild tricuspid regurgitation. Doppler findings do not suggest pulmonary hypertension. --S/P Left middle finger irrigation and debridement of skin, subcutaneous tissue, deep fascia, tendon, and bone by on 01/16/23 -- Wound, blood cultures growing MSSA --Repeat blood cultures negative to date --Operative wound culture: Preliminary culture growing MSSA --IV Zosyn >>Unasyn>> IV cefazolin -- Per ID, Given possibility of osteomyelitis, recommends IV cefazolin for 6 weeks duration from the date of debridement 01/19: consented for PICC line and Home Health in place starting tomorrow. DC today or tomorrow depending on patient preference with respect to pain control. (3) COPD (chronic obstructive pulmonary disease): Plan: Appears stable, no signs of acute exacerbation Continue home inhalers Smoking cessation strongly recommended, contemplative phase. (4) Lupus anticoagulant disorder: Plan: chronic, stable. On Plaquenil (5) PTSD (post-traumatic stress disorder): (6) Depression: (7) Smoking: Plan: Smoking cessation strongly recommended. (8) Anxiety: Plan: Chronic and she continues on welbutrin, venlafaxine. Followup with outpatient provider. (9) Fibromyalgia: Plan: chronic, Stable, continue home meds DVT Px Lovenox-change from Heparin to reduce shot burden Dispo- home with home health either today or tomorrow. Discussed plan with Case Management. [facility] Hospital[facility] Admission and Anticipated Discharge Date Admission Date: January 14, 2023 Subjective 53 yo F admitted with MSSA bacteremia 2/2 finger infection pain is not controlled, however, her expectations are that pain should be a zero she reports not being able to take Ibuprofen given a h/o GERD and refuses to try because of h/o issue with this medication in the past. notes having Nicoderm patches at home and unable to quit smoking as "I have been smoking my whole life and have a lot of stress" We discussed that this will contribute to poor wound healing post operatively She is eating food today noting a return of her appetite She mentioned that she is wanting to be discharged. Agreed to try scheduled APAP/Tramadol to see how this works for her pain Consented for PICC line. Review of Systems Review of Systems: all systems were reviewed and negative except as indicted on HPI above. Physical Exam Physical Exam: CONSTITUTIONAL: WNWD, vitals as above, generally well-appearing, NAD EYES: normal conjunctivae, no scleral icterus ENT: external ear and nose normal, MMM NECK: trachea midline RESPIRATORY: clear to auscultation bilaterally, no crackles, rales or wheezes, normal respiratory effort CARDIOVASCULAR: regular rate and rhythm, S1 and 2 heard without murmurs, ga llops or rubs, no JVD, no peripheral edema CHEST: inspection of chest was normal GASTROINTESTINAL: soft, nontender, ND, no guarding MUSCULOSKELETAL: strength 5/5 throughout, head is normocephalic and atraumatic SKIN: warm and dry, right middle finger with post op dressing in place, c/d/i. No surrounding redness and hand does not appear swollen. NEUROLOGIC: CN 2-12 grossly intact, no sensory deficit, normal cognition, normal speech, no tremor PSYCHIATRIC: alert cooperative and oriented to person, place and time. Euthymic mood, but became tearful and overwhelmed at one point, makes good eye contact, language grossly intact, recent and remote memory grossly intact. Results & Data Results & Data Vital Signs (Past 12 Hours) Vital Signs Temp Pulse Resp BP Pulse Ox O2 Del Method 01/19/23 07:17 37 C 77 18 127/74 91 Room Air Laboratory Results Short CBC 01/19/23 Range/Units 05:38 WBC 5.52 (4.8-10.8) K/ul Hgb 11.8 L (12.0-16.0) g/dl Hct 34.6 L (37.0-47.0) % Plt Count 185 (130-400) K/uL [facility] 01/19/23 05:38 Sodium 138 Potassium 4.0 Chloride 102 Carbon Dioxide 29 BUN 12 Creatinine 0.70 Glucose 94 Calcium 9.0 Diagnostic Findings Short CBC 01/19/23 Range/Units 05:38 WBC 5.52 (4.8-10.8) K/ul Hgb 11.8 L (12.0-16.0) g/dl Hct 34.6 L (37.0-47.0) % Plt Count 185 (130-400) K/uL [facility] 01/19/23 05:38 Sodium 138 Potassium 4.0 Chloride 102 Carbon Dioxide 29 BUN 12 Creatinine 0.70 Glucose 94 Calcium 9.0 Medications Administered Current Inpatient Medications Acetaminophen (Acetaminophen 325 Mg Tab) 650 mg PO Q4H PRN PRN Reason: pain/fever Stop: 02/13/23 12:41 Last Admin: 01/19/23 08:59 Dose: 650 mg Bupropion HCl (Bupropion Xl 150 Mg Tabcr) 150 mg PO QAM [facility] Stop: 02/14/23 08:59 Last Admin: 01/19/23 07:48 Dose: 150 mg Cyclobenzaprine HCl (Cyclobenzaprine Hcl 10 Mg Tab) 10 mg PO HS PRN PRN Reason: Muscle Spasm Stop: 02/13/23 12:41 Fluticasone Furoate (Fluticasone Furoate 100mcg 14 Puffs/Inhaler) 1 puffs INH DAILY [facility] Stop: 02/14/23 08:59 Last Admin: 01/19/23 07:49 Dose: 1 puffs Heparin Sodium (Porcine) (Heparin Sod 5,000 Unit/0.5 Ml Vial) 5,000 units SQ Q12 [facility] Stop: 02/16/23 20:59 Last Admin: 01/19/23 07:48 Dose: 5,000 units Hydroxychloroquine Sulfate (Hydroxychloroquine Sulfate 200 Mg Tab) 200 mg PO HS PENDING SALE TO [facility] Stop: 02/13/23 20:59 Last Admin: 01/18/23 21:19 Dose: 200 mg Cefazolin Sodium (Ancef 2000mg) 2,000 mg in 15 mls @ 3.75 mls/min IV Q8H [facility] Stop: 03/01/23 13:59 Last Admin: 01/19/23 05:41 Dose: 3.75 mls/min Miscellaneous (Remove Nicoderm Patch) 1 each N/A DAILY@0859 [facility] Stop: 02/14/23 08:58 Last Admin: 01/19/23 07:48 Dose: 1 each Nicotine (Nicotine 14 Mg/24 Hr Patch) 14 mg TD QAM [facility] Stop: 02/13/23 15:59 Last Admin: 01/19/23 07:48 Dose: 14 mg Oxycodone HCl (Oxycodone Hcl Ir 5 Mg Tab (Immediate Release)) 5 - 10 mg PO Q6H PRN PRN Reason: Pain Stop: 01/29/23 02:33 Last Admin: 01/19/23 05:40 Dose: 10 mg Pantoprazole Sodium (Pantoprazole 40 Mg Tab) 40 mg PO QAM [facility] Stop: 02/14/23 08:59 Last Admin: 01/19/23 07:48 Dose: 40 mg Trazodone HCl (Trazodone Hcl 100 Mg Tab) 100 mg PO [facility] Stop: 02/13/23 20:59 Last Admin: 01/18/23 21:19 Dose: 100 mg Umeclidinium/Vilanterol (Umeclidinium/Vilanterol 62.5/25mcg 7 Puffs/Inhaler) 1 puffs INH DAILY [facility] Stop: 02/14/23 08:59 Last Admin: 01/19/23 07:49 Dose: 1 puffs Venlafaxine HCl (Venlafaxine Hcl Xr 37.5 Mg Capxr) 37.5 mg PO [facility] Stop: 02/13/23 20:59 Last Admin: 01/18/23 19:56 Dose: 37.5 mg
[2023-01-19] MEDS ORDERED: CeleBREX 200 MG CAP PO SCH (11:15)
[2023-01-19] MEDS ORDERED: traMADol HCL 50 MG TABLET PO PRN (11:20)
[2023-01-19] MEDS ORDERED: traMADol HCL 50 MG TABLET PO SCH ×2 (11:20→15:00)
[2023-01-19] MEDS ORDERED: ACETAMINOPHEN 500 MG TAB PO SCH ×2 (11:20→15:00)
--- NOTE | 2023-01-19 11:59 | Communication Note ---
Date of Service: January 19, [address] Palacios late yesterday afternoon. Dressing change done at that time. Dr. Palacios states the operative site appeared stable for now. No fu rther surgery needed at this time. Maintain dressing on finger and follow up with Dr. Prince or his PA next week for wound check.
--- NOTE | 2023-01-19 15:14 | Discharge Summary ---
Discharge Summary Date of Service January 19, 2023 Admission HPI Per Admitting Provider 53-year-old female with PMH COPD, GERD, endometrial cancer s/p hysterectomy, fibromyalgia, osteoarthritis, lupus anticoagulant on Plaquenil, anxiety, depression, PTSD, and other problems listed below who presents to the ED after blood cultures obtained yesterday returned positive. History obtained from the patient and review outpatient PCP records. Patient reports that 4 days ago, she developed a blister on her left third finger. She is somewhat a poor historian. She thinks she may have been bitten by her cat and she was also working in her garden and thinks she may have been bitten by a spider. Patient was seen at [facility] on 01/12 and diagnosed with possible gout. Patient was given a Medrol Dosepak. Patient was then seen in the ED on 01/13 for worsening pain and swelling. She was given IV Rocephin and discharged on Augmentin. Blood cultures were obtained and 3/4 returned positive for MSSA. Patient was called to return back to the ED today. Patient reports ongoing pain, swelling, redness in the left third finger. Redness is starting to streak up the dorsal aspect of the left hand. Patient denies fevers and chills. No chest pain or shortness of breath. Denies lightheadedness, dizziness, diaphoresis, syncopal events. No abdominal pain, nausea, vomiting, diarrhea. Denies urinary symptoms. In the ED, patient is hemodynamically stable, labs are unremarkable. Bedside I&D was performed and wound culture was sent. Patient was given IV cefazolin. Principal Dx & Hospital Course #1 = Principal Diagnosis (1) Cellulitis of finger of left hand: POD3 s/p washout and debriding of necrotic tissue. Pain not well controlled wtih the oxycodone and we discussed wanting to try and avoid IV narcotics given how far out from surgery we are and that we cannot provide this at home. We decided to try and schedule Tylenol and Tramadol in lieu of oxycodone. declines Ibuprofen as a trial . It appears from outpatient record review that she is taking once daily Celebrex 200mg daily as outpatient, which was held on admission. Restarting this now to help with pain. (2) MSSA bacteremia: Left middle finger cellulitis with significant soft tissue necrosis Possible osteomyelitis ? Secondary to bite and her manipulation of blister and skin after bite MSSA bacteremia secondary to above --Hand MRI:Severely motion compromised examination. No acute bony abnormality is identified. Soft tissue edema is present in the fingers, greatest in third digit where there is subcutaneous fluid. Correlate clinically. No organized/drainable fluid collection is identified. Arthritic change as above. Findings of erosive arthritis were better characterized on yesterday's x-rays. --ECHO: No evidence of mass or vegetation. EF 60 to 65%. Aortic valve is mildly calcified. Aortic valve sclerosis moderate, without significant aortic valvular stenosis. Mild aortic regurgitation. Mild tricuspid regurgitation. Doppler findings do not suggest pulmonary hypertension. --S/P Left middle finger irrigation and debridement of skin, subcutaneous tissue, deep fascia, tendon, and bone by on 01/16/23 -- Wound, blood cultures growing MSSA --Repeat blood cultures negative to date --Operative wound culture: Preliminary culture growing MSSA --IV Zosyn >>Unasyn>> IV cefazolin -- Per ID, Given possibility of osteomyelitis, recommends IV cefazolin for 6 weeks duration from the date of debridement 01/19: consented for PICC line and Home Health in place starting tomorrow. DC today or tomorrow depending on patient preference with respect to pain control. (3) COPD (chronic obstructive pulmonary disease): Appears stable, no signs of acute exacerbation Continue home inhalers Smoking cessation strongly recommended, contemplative phase. (4) Lupus anticoagulant disorder: chronic, stable. On Plaquenil (5) PTSD (post-traumatic stress disorder): (6) Depression: (7) Smoking: Smoking cessation strongly recommended. (8) Anxiety: Chronic and she continues on welbutrin, venlafaxine. Followup with outpatient provider. (9) Fibromyalgia: chronic, Stable, continue home meds DVT Px Lovenox-change from Heparin to reduce shot burden Dispo- home with home health either today or tomorrow. Discussed plan with Case Management. Mikki Roberson DO [facility] Hospitalist Discharge Exam CONSTITUTIONAL: WNWD, vitals as above, generally well-appearing, NAD EYES: normal conjunctivae, no scleral icterus ENT: external ear and nose normal, MMM NECK: trachea midline RESPIRATORY: clear to auscultation bilaterally, no crackles, rales or wheezes, normal respiratory effort CARDIOVASCULAR: regular rate and rhythm, S1 and 2 heard without murmurs, gallops or rubs, no JVD, no peripheral edema CHEST: inspection of chest was normal GASTROINTESTINAL: soft, nontender, ND, no guarding MUSCULOSKELETAL: strength 5/5 throughout, head is normocephalic and atraumatic SKIN: warm and dry, right middle finger with post op dressing in place, c/d/i. No surrounding redness and hand does not appear swollen. NEUROLOGIC: CN 2-12 grossly intact, no sensory deficit, normal cognition, normal speech, no tremor PSYCHIATRIC: alert cooperative and oriented to person, place and time. Euthymic mood, but became tearful and overwhelmed at one point, makes good eye contact, language grossly intact, recent and remote memory grossly intact. Updated Medication List Medication Instructions Recorded Confirmed Type hydroxychloroquine 200 mg tablet 200 mg PO HS 06/06/18 01/14/23 History (Plaquenil) trazodone 50 mg tablet 100 mg PO HS 06/06/18 01/14/23 History lansoprazole 30 mg capsule,delayed 30 mg PO QAM 12/29/20 01/14/23 History release celecoxib 200 mg capsule 200 mg PO QAM 07/29/21 01/19/23 History cyclobenzaprine 10 mg tablet 10 mg PO HS PRN Muscle Spasm 07/29/21 01/14/23 History albuterol sulfate 90 mcg/actuation 2 puff inhalation Q4 PRN Wheezing 10/19/21 01/14/23 History aerosol inhaler oxycodone 5 mg capsule 5 mg PO Q6H PRN pain #14 caps 01/13/23 01/14/23 Rx bupropion HCl 150 mg 24 hr tablet, 150 mg PO QAM 01/14/23 01/14/23 History extended release fluticasone fur. 100 mcg-umeclid 1 inh inhalation QAM 01/14/23 01/14/23 History 62.5 mcg-vilant 25 mcg inhalat.powder (Trelegy Ellipta) methylprednisolone 4 mg tablets in 4 mg PO DIRECTED 01/14/23 01/14/23 History a dose pack venlafaxine 37.5 mg 37.5 mg PO HS 01/14/23 01/14/23 History capsule,extended release 24 hr nicotine 21 mg/24 hr daily 1 patch transdermal DAILY #28 ea 01/19/23 Rx transdermal patch (Nicoderm CQ) tramadol 50 mg tablet 100 mg PO Q8H PRN pain #30 tabs 01/19/23 Rx Hospital Stay Data Consultations 01/14/23 10:19 Consult Orthopedic Surgery Stat 01/14/23 10:32 ED Decision to Admit Stat 01/14/23 12:42 Consult Orthopedic Surgery Routine 01/14/23 13:17 Consult Infectious Diseases Routine Procedures Performed Operation Date: 01/16/23 09:00 Actual Procedures p Left Third Finger Incision and Drainage(Left) - Joce Prince M.D. Diagnostic Imagining Performed 01/14/23 10:32 MR hand LT wo/w con Stat Pending Results Patient Have Any Pending Studies at Discharge: No Discharge Instructions Given to Patient (Per Discharging Provider) Please take all medications as instructed on discharge as below. Please continue intravenous antibiotics through your PICC line for 6 weeks from the date of surgery and follow-up with infectious disease at [facility]. You will need weekly labs to monitor your blood count and chemistry panel while on the intravenous antibiotics. These should be drawn weekly and sent to your primary care doctor and the infectious disease doctor at [facility]. Please notify your primary care doctor if this is not being done. Please followup with your surgeon for a post-operative visit next week. Please maintain dressing that was changed on 01/19 on your finger until you are able to be seen next week by Dr. Prince. Smoking cessation is strongly recommended. You are being given NicoDerm patches to help in this effort. It was a pleasure taking care of you! Please call if you have any questions or problems. You can reach a [facility] hospitalist on duty at [facility] [address] 24 hours a day by calling [phone]. Take care of yourself. Mikki Roberson, DO [facility] Hospitalist
[2023-01-19] MEDS ORDERED: ENOXAPARIN INJ 40 MG/0.4 ML SYR SQ SCH (21:00)
[2023-01-19] MEDS ORDERED: traZODone HCL 50 MG TAB PO SCH (21:00)
== END 2023-01-19 16:31 | disposition home health service (06) | DRG 982 ==
LOC: ED 08:51 → SUATTDRO 10:36 → 3E 10:36